=== PATIENT | male | born 1960 | race Caucasian/White ===

== ENCOUNTER 2017-01-17 21:27 | Observation (INO) ==
[2017-01-18] MEDS ORDERED: Naloxone 0.4 MG/ML INJ IVP PRN (02:16)
[2017-01-18] MEDS ORDERED: *HR* Enoxaparin 150 MG/ML SYRINGE SQ STA (02:20)
--- NOTE | 2017-01-18 02:23 | Internal Med History&Physical ---
Date of Encounter: 01/18/17 Time of Encounter: 01:30 Assessment and Plan (1) Unstable angina Current visit: Yes Status: Acute Treat with aspirin, nitroglycerin when necessary, enoxaparin. Trend troponins. Cardiology consultation, for further w/u. Check lipid panel (2) Chest pain Current visit: Yes Status: Acute Likely secondary to unstable angina/ACS. Treatment as above Qualifiers: Chest pain type: chest pain due to myocardial ischemia Ischemic chest pain type: unstable angina pectoris Qualified Code(s): I20.0 - Unstable angina (3) BRIAN (obstructive sleep apnea) Current visit: Yes Status: Chronic Uses BiPAP at home. Consider restarting (4) Diabetes mellitus Current visit: Yes Status: Acute Hold metformin. Start sliding scale insulin Qualifiers: Diabetes mellitus type: type 2 Diabetes mellitus complication status: without complication Diabetes mellitus senior living insulin use: without superintendent terminal use Qualified Code(s): E11.9 - Type 2 diabetes mellitus without complications (5) HTN (hypertension) Current visit: Yes Status: Acute Continue home medications Qualifiers: Hypertension type: essential hypertension Qualified Code(s): I10 - Essential (primary) hypertension Internal Medicine - H&P: HPI Chief complaint: Chest pain Admitted From: Emergency Dept Plans for Post Hospital Care: Home History of present illness: Mr. Zuniga is a 56 year old male with history of hypertension, hyperlipidemia, obstructive sleep apnea and uses home BiPAP, diabetes mellitus, GERD. He is transferred from the ER at the [facility], for evaluation of chest pain. Patient reports a few days history of exertional shortness of breath and lower sternal / chest tightness. He reports intermittent chest pain yesterday. [place] like chest pressure in the lower sternal area, moderate in intensity, and he also felt pain at the shoulder blade. He felt sick to his stomach and belching. He denies palpitations, sweating, vomiting. He denies abdominal pain, dysuria , hematuria, bowel problems. He was evaluated in the emergency department and was noted to have from negative troponin, d-dimer and chest x-ray. He was given nitroglycerin, which helped his chest pain. He was also given aspirin. He is admitted to the hospitalist service for further workup and management. Of note - patient has significant family history of CAD. His father apparently had the cardiac problems in his 40s. His maternal uncles have history of heart problems. Past Med Surg Social Fam HX - Past Medical History Medical history: arthritis, asthma, coronary artery disease, diabetes, GERD, hyperlipidemia, hypertension Psychiatric history: depression - Past Surgical History Surgical History: cholecystectomy - Social History Smoking Status: Never smoker Smokeless Tobacco Status: No Alcohol use: none Drug use: none - Family History Father Hx Family Cardiac Disorders: Yes ([place]) Internal Medicine - H&P: Meds Albuterol Sulfate [Ventolin Hfa] 18 gm IH DAILY PRN 10/29/15 [History] Amlodipine Besylate 10 mg PO DAILY 10/29/15 [History] Aspirin [Adult Low Dose Aspirin EC] 81 mg PO DAILY 10/29/15 [History] Atenolol 100 mg PO DAILY 10/29/15 [History] Budesonide/Formoterol 160/4.5 [Symbicort 160/4.5] 2 puff IH BIDR 10/29/15 [ History] Loratadine [Claritin] 10 mg PO DAILY 10/29/15 [History] Losartan Potassium [Cozaar] 100 mg PO DAILY 10/29/15 [History] [place]-3 Fatty Acids [Fish Oil] 600 mg PO DAILY 10/29/15 [History] Pravastatin Sodium [Pravachol] 40 mg PO DAILY 10/29/15 [History] Sertraline [Zoloft] 100 mg PO DAILY 10/29/15 [History] Spironolactone [Aldactone] 25 mg PO DAILY 10/29/15 [History] metFORMIN [Glucophage] 500 mg PO BIDWM 10/29/15 [History] Testosterone Cypionate [Depo-Testosterone] 200 mg IM Q2W 05/17/16 [History] Multivit-Min/Iron Fum/Folic AC [Uxafi-Nqkjrbh-Szxdbrjn Tablet] 1 tab PO DAILY [History] Allergies No Known Allergies Allergy (Verified 01/17/17 19:23) All Systems PM: A 10-system review of systems was performed and is negative for pertinent findings except as documented above in the HPI. - Constitutional Vitals: Temp Pulse Resp BP Pulse Ox 98.0 F 63 18 144/93 97 01/17/17 23:38 01/17/17 23:38 01/17/17 23:38 01/17/17 23:38 01/17/17 23:38 Exam: General: Not in acute distress at the time of my evaluation. Morbid obesity HEENT: Oral mucosa is moist. No conjunctival palor or scleral icterus Neck: No obvious neck swellings Lungs: Clear to auscultation Cardiac: Regular rate and rhythm. No significant murmurs Abdomen: Soft, non tender. Bowel sounds present Genitourinary: No sutton catheter Neurological: Alert and oriented. No gross localizing deficits Psych: Not aggressive or agitated Extremities: Minimal leg edema Skin: No generalized rash Internal Med - H&P Results - Labs CBC & Chem 7: 01/18/17 03:59 - EKG Data -: EKG Interpreted by Myself EKG shows normal: sinus rhythm - EKG Data EKG comments: Q wave in lead III 01/18/17 06:35
[2017-01-18 04:20] LABS: INR 1.2; Prothrombin Time 12.5 Seconds (9.4-12.1)
[2017-01-18 04:23] LABS: Activated Partial Thrombo Time 34.1 Seconds (26.0-36.0)
[2017-01-18 05:51] LABS: BUN/Creatinine Ratio 17 (6-26); Blood Urea Nitrogen 19 mg/dL (8-26); Calcium 9.2 mg/dL (8.6-10.8); Carbon Dioxide 25 mEq/L (19-29); Chloride 105 mEq/L (98-109); Glucose 109 mg/dL (70-99); Osmolality,Calculated 293 (280-300); Potassium 4.1 mEq/L (3.5-4.5); Sodium 140 mEq/L (136-145); eGFR For African Americans > 60 (> 60); eGFR For Non-African Americans > 60 (> 60)
[2017-01-18 06:21] LABS: Chol/HDL Ratio 5.2 (0-4.9); Magnesium 2.1 mg/dL (1.6-2.6)
[2017-01-18] MEDS ORDERED: Dextrose Gel 15 GM PO PRN ×2 (06:41)
[2017-01-18] MEDS ORDERED: *HR* Dextrose 50 % in Water (Syg) 50 ML SYRINGE IVP PRN (06:41)
[2017-01-18] MEDS ORDERED: D5% in Water 1,000 ML IVC PRN (06:41)
[2017-01-18] MEDS: Insulin LISPRO 300 UNITS/3 ML VIAL SQ SCH ×4 (07:56→21:23)
[2017-01-18] MEDS ORDERED: Ondansetron 4 MG/2 ML VIAL IVP PRN (08:11)
[2017-01-18] MEDS ORDERED: Nitroglycerin 0.4 MG TAB.SUBL SL PRN (08:11)
[2017-01-18] MEDS ORDERED: *HR* Morphine 2 MG/ML SYRINGE IVP PRN (08:14)
[2017-01-18] MEDS ORDERED: *HR* HYDROcodone/Acet 5/325 mg TABLET PO PRN (08:14)
[2017-01-18] MEDS ORDERED: Acetaminophen 325 MG TABLET PO PRN (08:14)
[2017-01-18] MEDS: Budesonide/Formoterol 160/4.5 MDI IH SCH ×2 (10:27→21:09)
[2017-01-18] MEDS ORDERED: Regadenoson 0.4 MG/5 ML SYRINGE IVP ONE (12:32)
[2017-01-18] MEDS ORDERED: Perflutren Lipid Microsphere 1.3 ML in 0.9 % Sodium Chloride 8.7 ML IVP ONE (14:19)
[2017-01-18] MEDS: Aspirin 325 MG TABLET PO SCH (14:59)
[2017-01-18] MEDS: amLODIPine 5 MG TABLET PO SCH (15:00)
--- NOTE | 2017-01-18 15:28 | ECHO - Doppler Report ---
Echo with Imaging Enhancement Agent Name: Zheng Zuniga Date of Study: 01/18/2017 Date: 1960 Ht: 72.0 in Medical Record#: [id number] Age: 56 Wt: 323.0 lb Gender: Male BSA: 2.61 Order #: [id number] Location: [facility] Room #: 3B46 Reading Physician: Unique Laureano DO Education Rn: Dulce Castellanos RVT Ordering Physician: Mia Horton CNP Primary Physician: Ronal Landon MD Indications: Chest pain Impressions: LVEF 65%. Normal left ventricular size and systolic function. There is evidence of mild diastolic dysfunction of the left ventricle. RV size and function are normal in visualized views. No significant valvular dysfunction. No pulmonary hypertension by TR gradient. IVC is not visualized to estimate RVSP. Aortic root and ascending aorta are suboptimally visualized, appearing mildly dilated. However, size may be normal for BSA. Consider dedicated imaging. Left Ventricular Wall Motion: Rest Echo Findings All wall segments showed normal motion. Findings: Study Quality * Technically sub-optimal due to body habitus. ECG Findings * Normal sinus rhythm. Left Ventricle * LVEF 65%. * Normal LV chamber size, wall thickness and function. * Mild left ventricular diastolic dysfunction. * Definity echo contrast was used. Aortic Valve * No aortic regurgitation. * No aortic stenosis. * Not well visualized. Mitral Valve * No mitral regurgitation. * Normal mitral valve structure. * No mitral stenosis. Tricuspid Valve * Tricuspid valve not well visualized. * Trace tricuspid regurgitation. Pulmonic Valve * Pulmonic valve is not well visualized. * No pulmonic stenosis. * No pulmonic regurgitation. Pulmonary Artery * Pulmonary artery not well visualized. Right Ventricle * Normal right ventricular structure and function in the apical views. Normal Lat S [place]. Not well seen in Parasternal or subcostal view. Left Atrium * Normal left atrial size. Right Atrium * Normal right atrial size. Interatrial Septum * Interatrial septum not well evaluated. IVC * The IVC is not well evaluated. Pericardium * There is no pericardial effusion present. Aorta * Aortic root and ascending are suboptimally visualized but appear mildly dilated. This may be normal for BSA. History Contrast: Definity 1.3 ml in 8.7 ml of saline 2 ml. Measurements: 2D Normal Values RVIDd: 2.60 cm <2.7 cm IVSd: 1.30 cm 0.6 - 1.0 cm LVIDd: 4.40 cm 3.7 - 5.6 cm LVPWd: 1.40 cm 0.6 - 1.1 cm LVIDs: 2.40 cm 1.5 - 3.6 cm AO: 3.20 cm < 4.0 cm LA: 3.40 cm 2.0 - 4.0cm %FS: 45.50 cm >25 % LA volume: 59 Mitral Valve Peak E:.64 m/sec Peak A:.40 m/sec E/A Ratio:1.6 Peak E' Lat Corby:10 cm/s Peak E' Med [place]:5.9 cm/s E/E' Lat Ratio:6.4 E/E' Med Ratio:10.7 Tricuspid Valve TV Regurg Peak Grad: 23.00mmHg TV Regurg Peak Cor[place]: 2.38m/sec Updated by Unique Laureano on 01/18/2017 3:23:39 PM electronically signed on 01/18/2017 3:24:57 PM with status of Final Wall Motion Morgan: 1=Normal, 2=Hypokinesis, 3=Akinesis, 4=Dyskinesis, 5=Aneurysmal, 6=Hyperkinetic, X=Not Visualized (Blank)=Missing
--- NOTE | 2017-01-18 18:02 | Event Note ---
Date of Encounter: 01/18/17 Time of Encounter: 17:15 Patient seen and examined. On examination, patient sitting upright in bed conversing with his and watching television. He states the chest pain he had earlier on in the day was relieved with nitroglycerin and he has not had pain since. He denies shortness of breath above his norm. Troponins negative 3. Chest x-ray negative. Hyperglycemia has improved. Echocardiogram unremarkable with ejection fraction of 65% and mild diastolic dysfunction. Patient euvolemic on examination. Awaiting second part of his stress test tomorrow morning. If abnormal, will reconsult cards. Chest x-ray impression from [place]: No evidence of acute airspace disease. Sequela of granulomatous disease Echocardiogram with imaging enhancement agent impressions: LVEF 65%. Normal left ventricular size and systolic function. There is evidence of mild diastolic dysfunction of the left ventricle. RV size and function are normal in visualized use. No significant valvular dysfunction. No pulmonary hypertension by TR gradient. IVC is not visualized to estimate RVSP. Aortic root and ascending aorta are suboptimally visualized, appearing mildly dilated. However, size may be normal for BSA. Consider dedicated imaging.
[2017-01-19] MEDS: Insulin LISPRO 300 UNITS/3 ML VIAL SQ SCH ×4 (07:37→23:07)
[2017-01-19] MEDS: Aspirin 325 MG TABLET PO SCH (08:24)
[2017-01-19] MEDS: amLODIPine 5 MG TABLET PO SCH (08:25)
--- NOTE | 2017-01-19 10:47 | Nuclear Medicine Stress Report ---
Regadenoson Nuclear 2 day Name: Zheng Zuniga Date of Study: 01/18/2017 Date: 1960 Ht: 72.0 in Medical Record#: [id number] Age: 56 Wt: 323.0 lb Gender: Male Order #: [id number] Location: [facility] Room: [facility] Supervising Provider: Michael Wilson CNP Reading Physician: Unique Laureano DO Ordering Physician: Michael Wilson CNP Primary Care Physician: Ronal Landon MD Stress Technologist: Joy Jackson RRT Improvement Engineer: Manish Lindquist Indications: Chest Pain Impression: Technically challenging 2-day study. Cannot rule out mild ischemia in the basal to distal inferior wall (see Findings below). Pharmacologic ECG was negative for ischemia at the level of heart rate achieved. Gated EF = 68%. Findings communicated to ordering provider. History: Hypertension Diabetes Hypercholesteremia Stress Test Summary: Stress Test Type: Pharmacologic Regadenoson 0.4mg/5ml given IV Baseline Information: Initial Heart Rate: 64 Blood Pressure: 156/86 Stress Information: Test Terminated Due to (primary): As per protocol Maximum Blood Pressure: 146/88 Maximum Heart Rate: 91 Percent Maximum Heart Rate Achieved: 56 METS Reached: 1 Symptoms: No chest symptoms Nuclear Summary: SPECT myocardial perfusion imaging using Tc99m Sestamibi given intravenously was performed at rest and following cardiac stress testing. The resting images were obtained following initial dose of 33 mCi. Following stress an additional dose of 35.1 mCi was given at peak exercise or 30 seconds post regadenoson infusion. Medication Given: Time Medication Dose Units Route Findings: Stress Note * Resting ECG demonstrated normal sinus rhythm with nonspecific ST abnormalities, leftward axis and poor R wave progression. * Pharmacologic stress ECG is negative for ischemia at level of heart rate achieved. * No arrhythmias were noted during stress. * Patient had no chest pain during stress. Hemodynamic responses * Normal hemodynamic responses to pharmacologic stress. Study Quality * Technically challenging 2-day study. Gated EF % * Gated EF = 68%. Left Ventricle * The left ventricle is not dilated. NORMALS * Normal wall motion. TID * No evidence of transient ischemic dilatation. Lung Uptake * There is no evidence of increase lung uptake. PERFUSION * There is a small sized, mild intensity perfusion defect during rest involving the basal inferior wall. * There is a small sized, mild intensity perfusion defect during stress involving the basal, mid and somewhat distal inferior wall. * Wall motion is normal. Findings do not suggest infarct. * Worsening of perfusion on stress images suggest the presence of ischemia. Updated by Unique Laureano on 01/19/2017 10:39:10 AM electronically signed on 01/19/2017 10:42:45 AM with status of Final
[2017-01-19] MEDS: Budesonide/Formoterol 160/4.5 MDI IH SCH ×2 (11:10→21:19)
--- NOTE | 2017-01-19 12:15 | Electrocardiograph Report ---
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
--- NOTE | 2017-01-19 14:35 | Cardiology Consult Note ---
Date of Encounter: 01/19/17 Time of Encounter: 14:33 Assessment and Plan (1) Abnormal stress test Current Visit: Yes Status: Acute Stress test reviewed with patient. Ischemia cannot be ruled out in the mid to basal to distal inferior wall. Troponin negative x3. EKG with no acute ST changes. Patient currently with chest pain. Multiple risk factors for CAD including HTN, DM type II, HLD, BRIAN and family history. Father with SD in his 40's. [facility] indications, benefits, risks, and alternatives discussed and he agrees to proceed. (2) Chest pain Current Visit: Yes Status: Acute Likely secondary to unstable angina/ACS. Treatment as above Qualifiers: Chest pain type: chest pain due to myocardial ischemia Ischemic chest pain type: unstable angina pectoris Qualified Code(s): I20.0 - Unstable angina Discussion w patient/family: The assessment and plan as outlined above was discussed with the patient and/or family members who expressed understanding and agreement. All questions were answered. Thank you for involving us in the care of your patient. Please call with any questions. History of Present Illness Consult date: 01/19/17 Requesting physician: Mia Horton Consult reason: Abnormal stress test Chief complaint: Chest pain History of present illness: Mr. Zuniga is a 56 year old male with a history of hypertension, hyperlipidemia , diabetes type 2, BRIAN on BiPAP who presents with left-sided chest pain. He complains of chest pain over the past 2 days it occurs at rest. He also complains of dyspnea on exertion over the last 2 weeks with minimal activity. Cardiology consulted for abnormal stress test. On my exam the patient complains of a dull ache in his left chest that is non-radiating. He denies previous history of CAD. He denies diaphoresis, nausea or vomiting. Denies palpitations, dizziness, or syncope. Denies weight gain or edema. Past Med Surg Social Fam HX - Past Medical History Medical history: arthritis, asthma, coronary artery disease, diabetes, GERD, hyperlipidemia, hypertension, other (BRIAN on bipap) Psychiatric history: depression - Past Surgical History Surgical History: cholecystectomy - Social History Smoking Status: Never smoker Smokeless Tobacco Status: No Alcohol use: none Drug use: none - Family History Father Hx Family Cardiac Disorders: Yes ([place]) Medications and Allergies Albuterol Sulfate [Ventolin Hfa] 18 gm IH DAILY PRN 10/29/15 [History] Amlodipine Besylate 10 mg PO DAILY 10/29/15 [History] Aspirin [Adult Low Dose Aspirin EC] 81 mg PO DAILY 10/29/15 [History] Atenolol 100 mg PO DAILY 10/29/15 [History] Budesonide/Formoterol 160/4.5 [Symbicort 160/4.5] 2 puff IH BIDR 10/29/15 [ History] Loratadine [Claritin] 10 mg PO DAILY PRN 10/29/15 [History] Losartan Potassium [Cozaar] 100 mg PO DAILY 10/29/15 [History] [place]-3 Fatty Acids [Fish Oil] 600 mg PO DAILY 10/29/15 [History] Pravastatin Sodium [Pravachol] 40 mg PO DAILY 10/29/15 [History] Sertraline [Zoloft] 100 mg PO DAILY 10/29/15 [History] Spironolactone [Aldactone] 25 mg PO DAILY 10/29/15 [History] metFORMIN [Glucophage] 500 mg PO BIDWM 10/29/15 [History] Testosterone Cypionate [Depo-Testosterone] 200 mg IM Q2W 05/17/16 [History] Allergies No Known Allergies Allergy (Verified 01/18/17 08:20) All Systems Review: A 10-system review of systems was performed and is negative for pertinent findings except as documented above in the HPI. Physical Examination Vital Signs, Last 4 Hours Temp Pulse Resp BP Pulse Ox 01/19/17 11:10 18 96 01/19/17 11:06 97.7 F 61 16 107/68 96 General: Conversant, No Apparent Distress HEENT: Atraumatic, Normocephaly, Mucus Membranes Moist Neck: No JVD, Normal carotid pulses Cardiac: Reg Rate and Rhythm, Normal S1 and S2, No Murmur Lungs: Normal Breath Sounds, No Wheeze, Rales, Rhonchi Neuro: Alert and responsive, No focal deficits noted Abdomen: Soft, Non-Tender Skin: No rashes noted on visualized skin Musculoskeletal: No Chest Wall Tenderness Extremities: No Clubbing, No Cyanosis, No Edema, Normal Pulses Results 01/18/17 03:59 - Imaging and Cardiology Stress Test: report reviewed Echo: report reviewed - EKG Interpretation EKG results cardiology: personally reviewed (NSR with poor R wave progression.) Consult Discharge Plan - Plan Referrals: Ronal Landon MD [Primary Care Provider] - 01/24/17 5:30 pm
--- NOTE | 2017-01-19 15:29 | Internal Med Progress Note ---
Date of Encounter: 01/19/17 Time of Encounter: 14:00 - Assessment and plan (1) Chest pain Current Visit: Yes Status: Acute Assessment and plan: Patient with continued chest pain and a slightly abnormal stress test. Troponins negative 3. Chest x-ray negative. He denies shortness of breath above his norm. Echocardiogram unremarkable with ejection fraction of 65% and mild diastolic dysfunction. Patient euvolemic on examination. Cardiology was called and have decided to proceed with a left heart catheter today. Patient and with many questions regarding heart catheter in the procedure. Wheezing currently endorsing chest pain and states it is slightly better than yesterday, awaiting heart catheter. Chest x-ray impression from [place]: No evidence of acute airspace disease. Sequela of granulomatous disease Echocardiogram with imaging enhancement agent impressions: LVEF 65%. Normal left ventricular size and systolic function. There is evidence of mild diastolic dysfunction of the left ventricle. RV size and function are normal in visualized use. No significant valvular dysfunction. No pulmonary hypertension by TR gradient. IVC is not visualized to estimate RVSP. Aortic root and ascending aorta are suboptimally visualized, appearing mildly dilated. However, size may be normal for BSA. Consider dedicated imaging. Regadenosen nuclear 2 day stress test impression: Technically challenging 2 day study. Cannot rule out mild ischemia in the basal to distal inferior wall. Pharmacologic ECG was negative for ischemia at the level of heart rate achieved. Gated ejection fraction equals 68%. Qualifiers: Chest pain type: chest pain due to myocardial ischemia Ischemic chest pain type: unstable angina pectoris Qualified Code(s): I20.0 - Unstable angina (2) Abnormal stress test Current Visit: Yes Status: Acute Assessment and plan: Left heart catheter today (3) Unstable angina Current Visit: Yes Status: Suspected (4) HTN (hypertension) Current Visit: Yes Status: Chronic Assessment and plan: Controlled. At home, patient is on atenolol 100 mg daily, spironolactone 25 mg daily, amlodipine 10 mg daily, losartan 100 mg daily. While admitted, his atenolol and amlodipine have been continued and his blood pressure is controlled , will continue to trend. Qualifiers: Hypertension type: essential hypertension Qualified Code(s): I10 - Essential (primary) hypertension (5) BRIAN (obstructive sleep apnea) Current Visit: Yes Status: Chronic Assessment and plan: Endorses compliance with BiPAP (6) Diabetes mellitus Current Visit: Yes Status: Chronic Assessment and plan: Controlled at home with a recent A1c of 5.7%. Continue sliding scale while admitted. 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 On examination, patient saying that his chest pain has returned and states it is slightly more severe than yesterday. He also endorses being hungry but understands we cannot eat until seen by cardiology. His is at the bedside and has many questions. - Constitutional Vitals: Temp Pulse Resp BP Pulse Ox 97.7 F 61 18 114/71 96 01/19/17 15:12 01/19/17 15:12 01/19/17 15:12 01/19/17 15:12 01/19/17 15:12 General appearance: Present: A&O X 3, morbidly obese, pleasant, no acute distress, answers questions appropriately - Head Head exam: Present: atraumatic, normocephalic - Eye Eye exam: Present: PERRL, conjuntiva pink, sclera anicteric Pupils: Present: PERRL - Neck Neck exam general surgery: Present: supple, trachea midline. Absent: lymphadenopathy - Respiratory Respiratory exam: Present: CTAB. Absent: accessory muscle use, rales, respiratory distress, rhonchi, wheezes - Cardiovascular Cardiovascular exam: Present: RRR, +S1, +S2. Absent: diastolic murmur, gallop, rubs, systolic murmur - GI/Abdominal GI/Abdominal exam: Present: normal bowel sounds, soft, no peritoneal signs. Absent: distended, tenderness - Extremities Exam Extremities exam: Present: warm, radial pulses palpable and symetrical. Absent : calf tenderness, cyanotic, pedal edema - Neurological Exam Neurological exam: Present: alert, CN II-XII intact, oriented X3, no focal deficits, strengths equal and symetr throughout. Absent: pronater drift, facial droop, speech deficit - Skin Skin exam: Present: diaphoretic, intact, normal color, warm Internal Medicine: Result - Labs CBC & Chem 7: 01/18/17 03:59 - ABG Interpretation ABG results: PT/INR, D-dimer PT 12.5 Seconds (9.4-12.1) H 01/18/17 03:59 Consult Discharge Plan - Plan Referrals: Ronal Landon MD [Primary Care Provider] - 01/24/17 5:30 pm
[2017-01-19] MEDS ORDERED: 0.9 % Sodium Chloride 1,000 ML ONE ×2 (15:32→16:05)
[2017-01-19] MEDS ORDERED: Heparin 1,000 UNITS/500 mL NS 500 ML ONE ×2 (15:32→17:21)
[2017-01-19] MEDS ORDERED: *HR* Heparin 10,000 UNIT/10 ML VIAL ONE (15:33)
[2017-01-19] MEDS ORDERED: *HR* Midazolam HCl 2 MG/2 ML VIAL ONE ×2 (15:45→16:36)
[2017-01-19] MEDS ORDERED: *HR* FentaNYL (PF) 100 MCG/2 ML VIAL ONE (15:45)
[2017-01-19] MEDS ORDERED: Nitroglycerin 1,000 MCG/10 ML VIAL IV ONE (15:46)
--- NOTE | 2017-01-19 15:50 | Pre-Sedation Evaluation ---
Pre-sedation evaluation - Pre-sedation checklist Date of procedure: 01/19/17 Procedure: [facility] Recent Vitals: Last Vital Signs Temp 97.7 F 01/19/17 15:12 Pulse 61 01/19/17 15:12 Resp 18 01/19/17 15:12 BP 114/71 01/19/17 15:12 Pulse Ox 96 01/19/17 15:12 H&P (including ROS) documented in medical record: Yes Previous reaction to sedatives/anesthetics: No Dietary Status: NPO after Midnight Airway Assessment: Patient can open mouth completely, TMJ function normal, Micrognathia (under-bite, receding chin) absent, Neck with adequate range of motion Dentition: No loose teeth or bridges Possible difficult airway: Yes If Yes;: History of Obstructive Sleep Apnea, Morbid obesity ASA Classification *see protocol: CLASS II-Mild systemic disease Plan of Care: Pt appropriate candidate for procedure/moderate/conscious sedation , Risks/benefits of procedure/sedation discussed w/ patient/family
[2017-01-19] MEDS ORDERED: *HR* Bivalirudin 250 MG VIAL IVC ONE ×3 (16:28→17:31)
[2017-01-19] MEDS ORDERED: *HR* Ticagrelor 90 MG TABLET ONE (17:09)
--- NOTE | 2017-01-19 17:54 | Invasive Diagnostic Lab Proc ---
Name: Zheng Zuniga Date of Study: 01/19/2017 Date: 1960 Ht: 72.0in Medical Record#: [id number] Age: 56 Wt: 317.47lb Gender: Male BSA: 2.59 Order #: [id number] BMI: 43 Physicians Procedure Physician: Dolores Jeter MD, [facility] Referring MD: Ronal Landon MD Referring MD: Staff Name Position Time In Ju Tsang RN Monitor 04:09 PM Igor Raza RN [employer] Worker 04:10 PM Sites, Sherry RT (R) Scrub 04:10 PM Sherry Suarez RT (R) 04:11 PM Javon Santiago RN 04:11 PM Indications Indication Abnormal Test - Stress Procedures Performed Procedure L HRT ARTERY/VENTRICLE ANGIO PRQ CARDIAC ANGIOPLAST 1 ART PRQ CARD DESTINI STENT W/ANGIO 1 VSL Pre-Procedure Checklist Informed consent is complete signed and on chart. H\\T\\P is on chart. ID band is on and ID verified with patient. Patient NPO for procedure The procedure was described for the patient and questions were answered. Blood Pressure: 107/68 ECG is on chart. Rhythm: NSR Plan of Care Patient will tolerate the procedure without complications. Adequate level of comfort will be maintained. Hemodynamics will remain stable Patient will recover from procedure without complications. Respiratory function will be maintained. Cardiac rhythm will remain stable. Patient temperature will be maintained. Patient and/or family have verbalized understanding of the procedure. Patient Education Chief Complaint/Reason for Test: Cardiac Cath Developmental Category: Adult (18-64 years) Developmentally Appropriate for Age: Yes Learning Barriers: None Education Needs: Procedure Education Method: Verbal Information Taught: Cardiac Cath Educational Evaluation: Able to repeat information Intravenous Access Time IV Size Location DC'd Fluid/Drip Rate Units RN 03:55 PM 18g 1 /" Patent On Arrival Rt Antecubital 0.9NaCl 25 ml/hr Igor Raza RN Allergies No Known Allergies Vital Signs Time BP (mmHg) HR (bpm) O2 Sat. RR (bpm) LOC 03:53 PM 107 / 68 61 96 % 18 5 = Fully awake and oriented or at pre-proc level 04:14 PM / % 5 = Fully awake and oriented or at pre-proc level 04:14 PM / % 4 = Oriented but drowsy 04:29 PM / % 4 = Oriented but drowsy 04:45 PM / % 4 = Oriented but drowsy 04:10 PM 150 / 88 61 99 % 0 04:15 PM 125 / 76 59 97 % 19 04:20 PM 131 / 72 58 97 % 18 04:25 PM 132 / 63 66 96 % 26 04:30 PM 130 / 70 67 96 % 23 04:35 PM 121 / 67 63 97 % 21 04:40 PM 120 / 68 64 95 % 21 04:45 PM 122 / 61 64 96 % 21 04:50 PM 126 / 73 66 97 % 15 04:55 PM 118 / 61 62 96 % 17 05:00 PM 128 / 66 61 95 % 21 05:05 PM 121 / 69 61 95 % 22 05:10 PM 121 / 68 64 95 % 29 05:15 PM 124 / 72 65 93 % 05:20 PM 108 / 61 70 96 % 18 05:25 PM 106 / 61 65 95 % 20 05:30 PM 119 / 53 67 93 % 24 Procedural Medications Time Medication Dose Units Method Given By 04:13 PM Oxygen 2 L/min nasal cannula Igor Raza RN 04:14 PM Versed 2 mg Intravenous Igor Raza RN 04:14 PM Fentanyl 50 mcg Intravenous Igor Raza RN 04:20 PM Lidocaine 2% 17 ml Subcutaneous Dolores Jeter MD, FACC 04:33 PM Angiomax 0.75mg/kg bolus: 22 ml Intravenous Igor Raza RN 04:33 PM Angiomax 1.75mg/kg/hr: 51 ml/hr Intravenous Igor Raza RN 04:38 PM Versed 1 mg Intravenous Igor Raza RN 04:38 PM Fentanyl 25 mcg Intravenous Igor Raza RN 04:59 PM Benadryl 25 mg Intravenous Igor Raza RN 05:08 PM Versed 1 mg Intravenous Igor Raza RN 05:08 PM Fentanyl 25 mcg Intravenous Igor Raza RN 05:18 PM Nitroglycerin 200 mcg Intracoronary Dolores Jeter MD, FACC 05:26 PM Nitroglycerin 200 mcg Intracoronary Dolores Jeter MD, FACC 05:27 PM Brilinta 180 mg Orally Igor Raza RN ASA Classification: CLASS II- Mild systemic disease (i.e. well-controlled diabetes, hypertension, asthma, cigarette smoking) Marcia Score Preprocedure Postprocedure Activity 2- Moves 4 extremities sustained head lift Activity 2- Moves 4 extremities sustained head lift Circulation 2- SBP +/= 20 points of pre-anesthetic level Circulation 2- SBP +/= 20 points of pre-anesthetic level Consciousness 2- Awake and alert oriented x 3 Consciousness 2- Awake and alert oriented x 3 O2 Saturation 2- Able to maintain O2 satruation of 92% on room air O2 Saturation 2- Able to maintain O2 satruation of 92% on room air Respiratory 2- Able to deep breathe and cough well Respiratory 2- Able to deep breathe and cough well Total Score 10 Total Score 10 Contrast Agent: Isovue Diagnostic Contrast: 258 ml Total Contrast: 258 ml Fluoro Dose: 4156 mGy Procedure Log Time Note Enter By 03:45 PM CathStat 04:09 PM Vitals capture started with the following parameters, Patient=Adult, Interval=5 min, Initial Oyditlzj=672 mmHg, Deflation Rate=5 mmHg, Cuff placed on Right Arm 04:09 PM 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 Bilateral groin prepped with Chloraprep by Sherry Suarez (R), safety strap applied then patient was draped. Skin intact. csmith 04:11 PM Sherry Suarez (R) Position: Time in: 16:11 csmith 04:11 PM Javon Santiago RN Position: Time in: 16:11 csmith 04:12 PM Physician arrived 16:12 csmith 04:12 PM ASA Class CLASS II- Mild systemic disease (i.e. well-controlled diabetes, hypertension, asthma, cigarette smoking) csmith 04:12 PM Meet and greet completed csmith 04:12 PM Sign in performed according to hospital policy. csmith 04:12 PM Procedure start 16:12 csmith 04:13 PM Recorded ECG: HR=59 Condition=Condition 1 04:14 PM Time: 16:13 Oxygen on at 2 L/min per nasal cannula [facility] 04:14 PM Time: 16:14 Versed 2 mg Intravenous Given by Igor Raza RN [facility] 04:14 PM Time: 16:14 Fentanyl 50 mcg Intravenous Given by Igor Raza RN [facility] 04:14 PM Time: 16:14 Patient comfortable and pain free: Yes csmith 04:14 PM Time: 16:14LOC: 5 = Fully awake and oriented or at pre-proc level csmith 04:15 PM HR=59 bpm, NOGG=562/76 mmhg, SpO2=97.0 %, Resp=19 B/min, Comment=NSR 04:18 PM Clinical Presentation: Unstable angina csmith 04:18 PM Time out performed according to hospital policy csmith 04:19 PM Pressure channel 1 zeroed. 04:20 PM HR=58 bpm, YWVM=151/72 mmhg, SpO2=97.0 %, Resp=18 B/min, Comment=NSR 04:20 PM Time: 16:20 17 ml Lidocaine 2% to right groin Subcutaneous Given by Dolores Jeter MD, [facility] csmith 04:20 PM Access obtained by percutaneous puncture. 5Fr 10cm Terumo [place] sheath placed in right Femoral artery. [id number] csmith 04:21 PM 5Fr FL 4 catheter inserted over the wire DN csmith 04:21 PM LCA angiography performed in multiple views. csmith 04:22 PM Recorded Pressure: Ao, HR=59, Condition=Condition 1 (Aorta) Ao 139/93/115 04:24 PM Recorded Pressure: Ao, HR=63, Condition=Condition 1 (Aorta) Ao 136/93/113 04:24 PM Catheter removed csmith 04:24 PM 5Fr FR [facility] PM RCA angiography performed in multiple views. csmith 04:25 PM HR=66 bpm, NDQK=114/63 mmhg, SpO2=96.0 %, Resp=26 B/min, Comment=NSR 04:27 PM Catheter removed csmith 04:27 PM 5Fr Pigtail [facility] 04[facility]27 PM Catheter selectively placed in left ventricle csmith 04:27 PM Bolus angiogram of left Ventricle complete: 8 ml/sec for a total of 24 mls csmith 04:28 PM Pressure channel 1 zero failed. 04:28 PM Pressure channel 1 zeroed. 04:28 PM Recorded Pressure: LV, HR=66, Condition=Condition 1 (Left Ventricle) LV 119/10/10 04:29 PM Recorded Pressure: LV, Ao, HR=71, Condition=Condition 1 (Left Ventricle) LV 132/36/28, (Aorta) Ao 129/88/109 04:29 PM Catheter removed csmith 04:29 PM Time: 16:14LOC: 4 = Oriented but drowsy csmith 04:29 PM Time: 16:14 Patient comfortable and pain free: Yes csmith 04:30 PM HR=67 bpm, WNSU=716/70 mmhg, SpO2=96.0 %, Resp=23 B/min, Comment=NSR 04:32 PM Coronary Dominance: right csmith 04:32 PM Lesion found in Proximal RCA. Pre Stenosis: 99 Pre CHE Flow: 3: Complete and Brisk Flow/Perfusion csmith 04:32 PM PCI Status Urgent csmith 04:33 PM Sheath exchanged for a 6 Fr 11 cm Cordis Pavithra sheath [id number] csmith 04:33 PM Time: 16:33 Angiomax 0.75mg/kg bolus: 22 ml Intravenous Given by Igor Raza RN [place] pump csmith 04:34 PM Time: 16:33 Angiomax 1.75mg/kg/hr: 51 ml/hr Intravenous Given by Igor Raza RN [place] pump csmith 04:34 PM 6Fr IM Runway guide catheter was used to cannulate the PCI vessel successfully. reused? No csmith 04:35 PM HR=63 bpm, MKGS=437/67 mmhg, SpO2=97.0 %, Resp=21 B/min, Comment=NSR 04:35 PM .014 Prowater 180cm guide wire across target lesion- successful. reused? No csmith 04:35 PM Recorded Pressure: Ao, HR=65, Condition=Condition 1 (Aorta) Ao 120/68/92 04:36 PM Inflation device was opened. csmith 04:38 PM 52.5 mm x 15 mm Emerge Monorail balloon across target lesion- successful. reused? No csmith 04:38 PM Time: 16:38 Versed 1 mg Intravenous Given by Igor Raza RN csmith 04:38 PM Time: 16:38 Fentanyl 25 mcg Intravenous Given by Igor Raza RN csmith 04:40 PM HR=64 bpm, LSSZ=513/68 mmhg, SpO2=95.0 %, Resp=21 B/min, Comment=NSR 04:42 PM Balloon removed would not cross csmith 04:43 PM 2.0 mm x 12 mm Mini Trek Rx balloon across target lesion- successful. reused? No csmith 04:45 PM HR=64 bpm, VBJE=009/61 mmhg, SpO2=96.0 %, Resp=21 B/min, Comment=NSR 04:45 PM Time: 16:29 Patient comfortable and pain free: Yes csmith 04:45 PM Time: 16:29LOC: 4 = Oriented but drowsy csmith 04:47 PM Balloon inflated @ 10 [place] for 20 seconds csmith 04:47 PM Balloon inflated @ 14 [place] for 20 seconds csmith 04:47 PM Recorded Pressure: Ao, HR=65, Condition=Condition 1 (Aorta) Ao 125/87/106 04:48 PM Balloon inflated @ 14 [place] for 20 seconds csmith 04:49 PM Balloon inflated @ 14 [place] for 20 seconds csmith 04:49 PM Balloon inflated @ 14 [place] for 15 seconds csmith 04:50 PM HR=66 bpm, IDQR=276/73 mmhg, SpO2=97.0 %, Resp=15 B/min, Comment=NSR 04:50 PM Balloon catheter removed intact. csmith 04:51 PM 2.5 x 15 balloon reinserted csmith 04:53 PM Balloon catheter removed intact. csmith 04:53 PM 6Fr Guidezilla advanced csmith 04:54 PM 2.5 x 15 balloon reinserted csmith 04:55 PM HR=62 bpm, CFVW=649/61 mmhg, SpO2=96.0 %, Resp=17 B/min, Comment=NSR 04:59 PM Time: 16:59 Benadryl 25 mg Intravenous Given by Igor Raza RN csmith 05:00 PM HR=61 bpm, FXSA=069/66 mmhg, SpO2=95.0 %, Resp=21 B/min, Comment=NSR 05:00 PM Time: 16:45LOC: 4 = Oriented but drowsy csmith 05:00 PM Time: 16:45 Patient comfortable and pain free: Yes csmith 05:02 PM Balloon catheter removed intact. csmith 05:02 PM 2.5 mm x 12 mm Emerge Monorail balloon across target lesion- successful. reused? No csmith 05:04 PM Recorded Pressure: Ao, HR=64, Condition=Condition 1 (Aorta) Ao 127/84/104 05:05 PM HR=61 bpm, AAFU=438/69 mmhg, SpO2=95.0 %, Resp=22 B/min, Comment=NSR 05:05 PM unable to cross csmith 05:06 PM Balloon catheter removed intact. csmith 05:06 PM Guide catheter removed intact. csmith 05:06 PM Guide wire removed intact. csmith 05:07 PM 6Fr XB LAD 3.5 [place] Bright-Tip guide catheter was used to cannulate the PCI vessel successfully. reused? No csmith 05:08 PM Time: 17:08 Versed 1 mg Intravenous Given by Igor Raza RN csmith 05:08 PM Time: 17:08 Fentanyl 25 mcg Intravenous Given by Igor Rzaa RN csmith 05:08 PM .014 Prowater 180cm guide wire across target lesion- successful. reused? No csmith 05:10 PM HR=64 bpm, TZNH=360/68 mmhg, SpO2=95.0 %, Resp=29 B/min, Comment=NSR 05:10 PM 2.5 x 15 balloon reinserted csmith 05:11 PM Recorded Pressure: Ao, HR=64, Condition=Condition 1 (Aorta) Ao 134/87/108 05:12 PM PCI lesion in Proximal LAD. Pre Stenosis: 90 Pre CHE Flow: 3: Complete and Brisk Flow/Perfusion csmith 05:12 PM Balloon inflated @ 8 [place] for 20 seconds csmith 05:13 PM Balloon inflated @ 8 [place] for 20 seconds csmith 05:15 PM HR=65 bpm, DFRQ=865/72 mmhg, SpO2=93.0 %, Comment=NSR 05:15 PM Balloon catheter removed intact. csmith 05:15 PM 2.75mm x 24mm Synergy drug-eluting stent across target lesion- successful Lot #[id number] csmith 05:16 PM Stent deployed @ 12 [place] for 30 seconds csmith 05:17 PM Stent balloon reinflated @ 14 [place] for 10 seconds csmith 05:18 PM Time: 17:18 Nitroglycerin 200 mcg Intracoronary Given by Dolores Jeter MD, FACC csmith 05:20 PM HR=70 bpm, DWFT=891/61 mmhg, SpO2=96.0 %, Resp=18 B/min, Comment=NSR 05:21 PM Stent delivery system removed intact. csmith 05:21 PM 3.0 mm x 12mm NC Emerge balloon across target lesion- successful. reused? No csmith 05:23 PM Balloon inflated @ 20 [place] for 22 seconds csmith 05:25 PM HR=65 bpm, KQQZ=690/61 mmhg, SpO2=95.0 %, Resp=20 B/min, Comment=NSR 05:25 PM Balloon inflated @ 20 [place] for 15 seconds csmith 05:26 PM Recorded Pressure: Ao, HR=65, Condition=Condition 1 (Aorta) Ao 117/77/95 05:26 PM Time: 17:26 Nitroglycerin 200 mcg Intracoronary Given by Dolores Jeter MD, FAC csmith 05:27 PM Time: 17:27 Brilinta 180 mg Orally Given by Igor Raza RN csmith 05:28 PM Bolus angiogram of right Femoral complete: 4 ml/sec for a total of 7 mls csmith 05:30 PM HR=67 bpm, JSTY=349/53 mmhg, SpO2=93.0 %, Resp=24 B/min, Comment=NSR 05:33 PM Procedure completed at 17:33 csmith 05:34 PM Sign out completed: Radiation Dose 4156 mGy Fluoro Time: 24.4 Isovue 370 - 200ml contrast 250 ml given by Dolores Jeter MD, [facility]. Complications: NoneCardiac Rehab Consult needed: YesConfirmed administered medications: Yes csmith 05:34 PM Isovue 370 - 500ml,1 Bottle(s) used. csmith 05:35 PM Sheath left in place to be pulled on floor/holding area csmith 05:35 PM Post ECG NSR csmith 05:36 PM Post Blood Pressure 119/53 csmith 05:36 PM 17:36 Post Pulses Bilateral DP 1+ csmith 05:36 PM Information taught Cardiac Cath and PCI csmith 05:36 PM Education needs Responsibilities of Patient in Care csmith 05:36 PM Learning barriers :None csmith 05:36 PM Education Methods Verbal csmith 05:36 PM Education evaluation Able to repeat information csmith 05:36 PM Site status No bleeding/hematoma - Rt Groin as reported by Sites, Sherry RT (R) at 17:36 csmith 05:36 PM Opsite applied csmith 05:36 PM Plavix, Effient or Brilinta given Yes csmith 05:37 PM Family placed in consult room. csmith 05:43 PM Lesion found in Mid RCA. Pre Stenosis: 99 Pre CHE Flow: 3: Complete and Brisk Flow/Perfusion csmith 05:43 PM Lesion found in Distal RCA. Pre Stenosis: 80 Pre CHE Flow: 3: Complete and Brisk Flow/Perfusion csmith 05:43 PM Lesion found in LMCA. Pre Stenosis: 20 Pre CHE Flow: 3: Complete and Brisk Flow/Perfusion csmith 05:43 PM Lesion found in Proximal Circumflex. Pre Stenosis: 20 Pre CHE Flow: 3: Complete and Brisk Flow/Perfusion csmith 05:43 PM Lesion found in Ramus. Pre Stenosis: 40 Pre CHE Flow: 3: Complete and Brisk Flow/Perfusion csmith Complications Complication None Hemodynamics Pressures Site Systolic/A Wave Diastolic/V Wave Mean AO 139 93 115 AO 136 93 113 LV 119 10 10 LV 132 36 28 AO 129 88 109 AO 120 68 92 AO 125 87 106 AO 127 84 104 AO 134 87 108 AO 117 77 95 Post Procedure Information Blood Pressure: 119/53 mmHg Rhythm: NSR Post procedural instructions were given Closure Device Time Device Success/Fail Mechanical Compression Site Checks Time Location Status Staff Sheath In? Note 05:36 PM Rt Groin No bleeding/hematoma Sites, Sherry RT (R) Pulses Time Site Pre-Procedure Post-Procedure Note 01/19/2017 3:54:00 PM Bilateral DP \\T\\ PT 2+ 01/19/2017 3:54:00 PM Bilateral radial 2+ 5:36:00 PM Bilateral DP 1+ Updated by Igor Raza RN on 01/19/2017 5:48:13 PM electronically signed on 01/19/2017 5:49:13 PM with status of Final
[2017-01-19] MEDS ORDERED: Nitroglycerin 0.4 MG TAB.SUBL SL PRN (18:03)
--- NOTE | 2017-01-19 18:04 | Invasive Diagnostic Lab ---
Name: Zheng Zuniga Date of Study: 01/19/2017 Date: 1960 Ht: 183.0 cm /72.0 in Medical Record#: [id number] Age: 56 Wt: 144. kg / 317.47 lb Account/Order#: [id number] Gender: Male BSA: 2.59 Order #: [id number] Fluoro Dose: 4156 mGy BMI: 43 Procedure Physician: Dolores Jeter MD, [facility] Referring MD: Ronal Landon MD Referring MD: Procedures Performed: LEFT HEART CATH PTCA Single Major Vessel Stent w/ PTCA Single Major Vessel Indications: Abnormal Test - Stress Impressions: Double vessel coronary artery disease. The left ventricle is normal and has normal contractility EF 60% Patient had successful PTCA/Drug-Eluting Stent placement in the proximal LAD. Patient had PTCA of the proximal RCA. Recommendations: DAPT Staged PCI of RCA. Optimal medical therapy of patient's disease. Aggressive risk factor modification. History/Risk Factors: BRIAN (uses Bipap) DM Hyperlipidemia HPTN DM Unstable angina Choleycystectomy Procedure Access obtained in the right Femoral artery by percutaneous puncture Patient had successful PTCA/Drug-Eluting Stent placement in the proximal LAD. Patient had DIAMOND SIZER AND SORTER of the proximal RCA. Complications: None Contrast: Isovue 258ml Closure Device: Manual Compression Hemodynamics: Pressures Site Systolic/ A Wave Diastolic/ V Wave End Diastolic/ Mean HR AO 139 93 115 59 AO 136 93 113 63 LV 119 10 10 66 LV 132 36 28 80 AO 129 88 109 66 AO 120 68 92 65 AO 125 87 106 65 AO 127 84 104 64 AO 134 87 108 64 AO 117 77 95 65 LV Ventriculography Ejection Method: LV Gram Ejection Fraction: 60% Wall Motion: [place] Anterobasal Normal Anterolateral Normal Apical: Normal Inferoapical Normal Inferobasal Normal Coronary Dominance: right Lesion Findings/Interventions * Left Main Coronary Artery There is a 20% stenosis in the LMCA. The lesion has a CHE flow of 3. * Left Anterior Descending There is a 21 mm long, 90% stenosis in the Proximal LAD. The lesion has a CHE flow of 3. An intervention was performed on the Proximal LAD with a final stenosis of 0%. There were no lesion complications. The final CHE flow was 3. * Circumflex There is a 20% stenosis in the Proximal Circumflex. * Ramus There is a 40% stenosis in the Ramus. The lesion has a CHE flow of 3. * Right Coronary Artery There is a 14 mm long, 99% stenosis in the Proximal RCA. The lesion has a CHE flow of 3 and has no thrombus present. This lesion is further described as tortuous. An intervention was performed on the Proximal RCA with a final stenosis of 90%. There were no lesion complications. The final CHE flow was 3. There is a 99% stenosis in the Mid RCA. The lesion has a CHE flow of 3. There is a 80% stenosis in the Distal RCA. The lesion has a CHE flow of 3. Unable to pass multiple balloons down RCA due to significant tortuosity. Interventional Device(s) Vessel Segment Type Name Diameter (mm) Length (mm) Proximal RCA balloon Mini Trek Rx 2 12 Proximal RCA balloon Emerge Monorail 2.5 12 Proximal LAD balloon Emerge Monorail 2.5 15 Proximal LAD drug-eluting stent Synergy 2.75 24 Proximal LAD balloon NC Emerge 3 12 Updated by Igor Raza RN on 01/19/2017 5:47:55 PM Dolores Jeter MD, FAC electronically signed on 01/19/2017 6:01:14 PM with status of Final
[2017-01-19] MEDS ORDERED: 0.9 % Sodium Chloride 1,000 ML IVC SCH (18:15)
[2017-01-19] MEDS ORDERED: *HR* Atropine Sulfate 1 MG/10 ML SYRINGE ONE (23:47)
[2017-01-20 04:13] LABS: Basophils % 0.3 %; Eosinophils # 0.1 K/mcL (0.0-0.6); Eosinophils % 0.7 %; Hematocrit 44.4 % (37.5-50.1); Hemoglobin 14.6 g/dL (12.9-16.9); Immature Granulocytes % 0.6 % (0-4); Lymphocytes # 1.9 K/mcL (0.6-4.6); Lymphocytes % 21.9 %; Mean Corpuscular HGB Conc 32.9 g/dL (31.6-35.5); Mean Corpuscular Hemoglobin 29.6 pg (28.0-33.3); Mean Corpuscular Volume 90.1 fL (83.0-100.0); Mean Platelet Volume 10.1 fL (9.4-12.4); Monocytes # 0.8 K/mcL (0.0-1.3); Monocytes % 8.5 %; Platelet Count 182 K/mcL (140-400); Red Blood Count 4.93 M/mcL (4.19-5.50); Red Cell Distribution Width 13.5 % (11.5-14.5)
[2017-01-20 04:30] LABS: BUN/Creatinine Ratio 15 (6-26); Blood Urea Nitrogen 17 mg/dL (8-26); Calcium 8.9 mg/dL (8.6-10.8); Carbon Dioxide 23 mEq/L (19-29); Chloride 107 mEq/L (98-109); Glucose 132 mg/dL (70-99); Osmolality,Calculated 293 (280-300); Potassium 4.3 mEq/L (3.5-4.5); Sodium 140 mEq/L (136-145); eGFR For African Americans > 60 (> 60); eGFR For Non-African Americans > 60 (> 60)
[2017-01-20 07:43] VITALS: BP 135/96
[2017-01-20] MEDS: Insulin LISPRO 300 UNITS/3 ML VIAL SQ SCH (07:43)
[2017-01-20] MEDS: amLODIPine 5 MG TABLET PO SCH (07:44)
[2017-01-20] MEDS: Budesonide/Formoterol 160/4.5 MDI IH SCH (08:17)
[2017-01-20] MEDS ORDERED: Isosorbide MONOnitrate (24 HR) 30 MG TAB.ER.24H PO SCH (09:00)
[2017-01-20] MEDS ORDERED: Aspirin 81 MG TAB.CHEW PO SCH (09:00)
--- NOTE | 2017-01-20 09:24 | Cardiology Progress Note ---
Date of Encounter: 01/20/17 Time of Encounter: 09:23 Assessment and Plan (1) Abnormal stress test Current Visit: Yes Status: Acute Stress test reviewed with patient. Ischemia cannot be ruled out in the mid to basal to distal inferior wall. Troponin negative x3. EKG with no acute ST changes. [facility] 01/19/17- 20% stenosis LMCA, 90% stenosis in the pLAD and PTCA and drug- eluting stent placed with good results. 20% stenosis pCX, 40% stenosis ramus, 99 % stenosis. RCA, 99% stenosis in the RCA, 80% stenosis in the RCA. The RCA was found to be tortuous and a balloon was unable to be passed in that area He did receive a PTCA of the proximal RCA with a final stenosis of 90%. He is recommended for staged high risk PCI. I discussed with Dr. Dolores Jeter, outpatient referral to [facility] for PCI of the RCA is recommended. Patient denies recurrent chest pain overnight. There was no complication with his right groin access site. He agrees with outpatient follow-up with [facility]. Follow-up will be coordinated by [facility]. Importance of DAPT with aspirin and Plavix for minimum of 1 year uninterrupted reviewed with patient and he voiced understanding. Continue aspirin, statin, beta christopher, and Imdur. NTG SL use, indication, side effects, and benefits reviewed. Patient voiced understanding. (2) CAD (coronary artery disease) Current Visit: Yes Status: Acute See plan above. Qualifiers: Qualified Code(s): I25.10 - Atherosclerotic heart disease of [place] coronary artery without angina pectoris Discussion w patient/family: The assessment and plan as outlined above was discussed with the patient and/or family members who expressed understanding and agreement. All questions were answered. Thank you for involving us in the care of your patient. Please call with any questions. Subjective Principal diagnosis: Abnormal stress test, unstable angina Interval history: Mr. Zuniga is status post PCI to the RCA and LAD. He is recommended for high risk staged PCI in the outpatient setting. He denies recurrent chest pain overnight. He has been ambulating in his room and in the hallway. Objective Vital Signs, Last 4 Hours Temp Pulse Resp BP Pulse Ox 01/20/17 08:17 18 97 01/20/17 07:50 59 01/20/17 07:38 98.0 F 58 18 135/96 96 General: Conversant, No Apparent Distress HEENT: Atraumatic, Normocephaly, Mucus Membranes Moist Neck: No JVD, Normal carotid pulses Cardiac: Reg Rate and Rhythm, Normal S1 and S2, No Murmur Lungs: Normal Breath Sounds, No Wheeze, Rales, Rhonchi Neuro: Alert and responsive, No focal deficits noted Abdomen: Soft, Non-Tender Skin: No rashes noted on visualized skin Musculoskeletal: No Chest Wall Tenderness Extremities: No Clubbing, No Cyanosis, No Edema, Normal Pulses, Other (Right groin dressing removed. Mild ecchymosis. No hematoma, redness, or drainage.) Results 01/20/17 03:34 01/20/17 03:34 Lab Results 01/20/17 01/20/17 03:34 03:34 WBC 8.8 Hgb 14.6 Hct 44.4 Plt Count 182 Sodium 140 Potassium 4.3 Chloride 107 Carbon Dioxide 23 BUN 17 Creatinine 1.16 Glucose 132 H Calcium 8.9 - Imaging and Cardiology Stress Test: report reviewed Echo: report reviewed Cardiac cath: report reviewed - EKG Interpretation EKG results cardiology: other (NSR with HR in the 60's. Average heart rate was 59 bpm normal sinus bradycardia. Minimum heart rate was 47 bpm during nocturnal hours. No VT or pauses seen.) Consult Discharge Plan - Plan Referrals: Ronal Landon MD [Primary Care Provider] - 01/24/17 5:30 pm
--- NOTE | 2017-01-20 09:38 | Discharge Summary ---
Date of Encounter: 01/20/17 Time of Encounter: 09:00 - Discharge Diagnosis (1) Unstable angina Priority: Primary Status: Suspected (2) HTN (hypertension) Priority: Secondary Status: Chronic Qualifiers: Hypertension type: essential hypertension Qualified Code(s): I10 - Essential (primary) hypertension (3) Diabetes mellitus Priority: Secondary Status: Chronic Qualifiers: Diabetes mellitus type: type 2 Diabetes mellitus complication status: without complication Diabetes mellitus tire assembler insulin use: without tire assembler use Qualified Code(s): E11.9 - Type 2 diabetes mellitus without complications (4) CAD (coronary artery disease) Priority: Secondary Status: Chronic Qualifiers: Coronary Disease-Associated Artery/Lesion type: [place] artery [place] vs. transplanted heart: [place] heart Associated angina: without angina Qualified Code(s): I25.10 - Atherosclerotic heart disease of [place] coronary artery without angina pectoris (5) Morbid obesity with BMI of 40.0-44.9, adult Priority: Secondary Status: Chronic (6) BRIAN (obstructive sleep apnea) Priority: Primary Status: Chronic - Discharge Medications Prescriptions: Nitroglycerin 0.4 mg SL Q5MIN PRN #10 tab.subl PRN Reason: Chest Pain Atorvastatin [Lipitor] 80 mg PO HS #60 tablet Clopidogrel [Plavix] 75 mg PO DAILY #30 tablet Isosorbide MONOnitrate (24 HR) [Imdur] 30 mg PO DAILY #30 tab.er.24h Lisinopril [Zestril] 2.5 mg PO DAILY #60 tablet Home Medications: Albuterol Sulfate [Ventolin Hfa] 18 gm IH DAILY PRN 10/29/15 [History] Amlodipine Besylate 10 mg PO DAILY 10/29/15 [History] Aspirin [Adult Low Dose Aspirin EC] 81 mg PO DAILY 10/29/15 [History] Atenolol 100 mg PO DAILY 10/29/15 [History] Budesonide/Formoterol 160/4.5 [Symbicort 160/4.5] 2 puff IH BIDR 10/29/15 [ History] Loratadine [Claritin] 10 mg PO DAILY PRN 10/29/15 [History] [place]-3 Fatty Acids [Fish Oil] 600 mg PO DAILY 10/29/15 [History] Sertraline [Zoloft] 100 mg PO DAILY 10/29/15 [History] metFORMIN [Glucophage] 500 mg PO BIDWM 10/29/15 [History] Testosterone Cypionate [Depo-Testosterone] 200 mg IM Q2W 05/17/16 [History] Atorvastatin [Lipitor] 80 mg PO HS #60 tablet 01/20/17 [Rx] Clopidogrel [Plavix] 75 mg PO DAILY #30 tablet 01/20/17 [Rx] Isosorbide MONOnitrate (24 HR) [Imdur] 30 mg PO DAILY #30 tab.er.24h 01/20/17 [ Rx] Lisinopril [Zestril] 2.5 mg PO DAILY #60 tablet 01/20/17 [Rx] Nitroglycerin 0.4 mg SL Q5MIN PRN #10 tab.subl 01/20/17 [Rx] Allergies/Adverse Reactions: Allergies No Known Allergies Allergy (Verified 01/18/17 08:20) Procedures/tests Complete & Pending: Procedures Performed prior 72 hours Category Date Time Status CL Cardiac Catheterization [CL] Routine Wet Machine Cutter 01/19/17 14:52 Completed NM isaura perf SPECT multi [NM] Routine Exams 01/18/17 12:44 Taken ECG 12 lead ECG [ECG] Routine Y 01/18/17 08:22 Completed ECG 12 lead ECG [ECG] Stat Y 01/19/17 18:02 Ordered EV echocardiogram w enhance Routine Y 01/18/17 08:23 Completed SP pharm nuclear stress Routine Y 01/18/17 08:23 Completed Date of admission: 01/17/17 23:10 Primary care physician: Ronal Landon MD Consults: 01/19/17 11:05 Consult to Cardiology [CONS] Routine Comment: Consulting Provider: Cardiology Barbara Reason for Consult: possibly abnl stress. still npo just in case. Time Notified: 11:05 Call Completed: Yes 01/19/17 18:04 Consult to Cardiac Rehabilitation-Phase1 [CONS] Routine Comment: Reason for Consult: CAD S/P PCI Call Completed: Yes - Patient Status Disposition: Home, Self-Care Condition: Good Functional capacity at discharge: independent ambulation Overall status at discharge: patient is progressing back to baseline - Discharge Instructions Instructions: Lisinopril (By mouth), Isosorbide Mononitrate (By mouth), Atorvastatin (By mouth), Clopidogrel (By mouth), Chest Pain (DC), Meal Planning with Diabetes Exchanges (DC) Follow Up With: Ronal Landon MD [Primary Care Provider] - 01/24/17 5:30 pm Forms: Work/School Release Additional Instructions: RISK FACTORS: STOP SMOKING: If you smoke, STOP. Smoking or tobacco use significantly increases your risk of heart disease because nicotine causes the arteries to narrow or constrict. It also causes fats to stick to the artery. Your chances of having a heart attack are greatly increased if you continue to smoke. For more information, call the education line for smoking cessation 8-639-IDUKUHP EAT A LOW FAT/CHOLESTEROL/SODIUM DIET: This diet may help reduce your chances of having a heart attack. LIFTING: Avoid lifting anything more than 10 pounds for 5-7 days Prior to straining, laughing, sneezing and/or coughing, apply manual pressure directly over insertion site. ACTIVITY: You may walk or climb stairs as tolerated You can resume sexual activity as tolerated In general, you are encouraged to engage in a minimum of 30 minutes or more of moderate intensity physical activity, such as brisk walking, daily or at least 3 -4 times weekly BATHING Do not submerge the site into water (bath tub, hot tub, swimming pool) for 1 week. This can be a source for infection into the blood stream. You may shower after 24 hours SITE CARE: After 24 hours, you may remove the dressing and leave the site open to air. Keep the site clean and dry. Clean gently and pat dry. You can expect bruising and tenderness that gradually resolve within a week or two. Return to work as instructed per your physician Resume driving as instructed per physician Keep all scheduled follow up appointments Resume medications as instructed IMPORTANT: If prescribed a Platelet Aggregation Inhibitor such as, Plavix, Brilinta or Effient: Duration of therapy is minimum one year These medications are often used in combination with Aspirin in prevention of future heart attacks Never discontinue unless consult with your Paper Roll Machine Operator STROKE (CVA) Risk factors for a stroke are: Age, cigarette smoking, diabetes, excessive alcohol consumption, family history, high blood pressure, overweight, physical inactivity, prior stroke, heart attack, diagnosis of carotid artery stenosis or other artery disease. Warning signs: Sudden numbness or weakness of the face, arm or leg; especially on one side of the body, sudden confusion, trouble speaking or understanding, sudden trouble seeing in one or both eyes, sudden trouble walking, dizziness, loss of balance or coordination, sudden severe headache with no cause. Call 911 or go to the Emergency Room. CONGESTIVE HEART FAILURE: If you have been diagnosed with Congestive Heart Failure (CHF) and your symptoms return, make an appointment with your physician Weigh yourself daily. Notify your physician if you have a weight gain of two or more pounds in one day or five or more pounds in one week. If you experience any difficulty breathing, please call 911 BLEEDING: Although the risk of bleeding is minimal, it can happen. If you have any bleeding from the site, apply firm pressure above the puncture site for 10-15 minutes. If the bleeding does not stop, continue manual pressure and call 911 Contact your physician if: You develop a fever greater than 101 degrees Fahrenheit Your site becomes reddened or has any drainage You have an increase in pain or burning at the site or if a large knot forms at the site. If you experience chest pain, shortness of breath, dizziness, or extreme tiredness, stop the activity and rest. Please notify your physicians office if you experience any of these symptoms and they are not relieved by rest please call 911! please take all medications as prescribed. follow a strict diabetic, low salt diet. monitor your sugars at home before meals and at bedtime, write down numbers and bring record to doctor's appointment. follow up with your primary care doctor for diabetes, start a weight loss program. [facility] cardiology clinic will call you within 1 week. - Diet and Activity Activity: other (pls provide acute heart attack instructions) Diet: diabetic diet, low fat, low cholesterol, low salt diet Interval History: patient has no complains. no chest pain. no shortness of breath. Hospital course: Mr. Zuniga is a 56 year old male with past medical history of CAD, diabetes, hypertension, morbid obesity, and BRIAN on BiPAP who presented with a chief complaint of chest pain. Patient underwent stress test that was slightly abnormal. Troponins negative 3. Chest x-ray was unremarkable. Echocardiogram revealed the LVEF 65% and mild systolic dysfunction. Given persistent of chest pain, patient underwent left heart catheterization with PCI drug-eluting stent to proximal LAD. In addition, there was 99% stenosis in the RCA s/p PTCA of the proximal RCA with a final stenosis of 90%. He is recommended for staged high risk PCI and will follow-up at [facility]. PLAN: Patient will follow-up at [facility] within 1 week for PCI of the RCA. - Time Spent with Patient Total time spent providing and/or coordinating discharge services: - Constitutional Vitals: Temp Pulse Resp BP Pulse Ox 98.0 F 59 18 135/96 97 01/20/17 07:38 01/20/17 07:50 01/20/17 08:17 01/20/17 07:38 01/20/17 08:17 General appearance: Present: cooperative, A&O X 3, morbidly obese, pleasant, no acute distress, answers questions appropriately - Neck Neck exam general surgery: Present: supple, trachea midline. Absent: lymphadenopathy - Respiratory Respiratory exam: Present: CTAB - Cardiovascular Cardiovascular exam: Present: RRR - GI/Abdominal GI/Abdominal exam: Present: normal bowel sounds, soft. Absent: distended, tenderness - Extremities Exam Extremities exam: Absent: pedal edema - Back Exam Back exam: Absent: CVA tenderness (L), CVA tenderness (R) - Neurological Exam Neurological exam: Present: alert, oriented X3, no focal deficits, strengths equal and symetr throughout. Absent: facial droop, speech deficit
--- NOTE | 2017-01-21 19:57 | Electrocardiograph Report ---
[address] [place] [address] Test Date: 2017-01-19 Pat Name: Zheng Zuniga Department: 110 Room: 2N07 Gender: M Bilingual Nanny: LUBA : 1960 Requested By: Dolores Jeter Order Number: [id number] Reading MD: Corey Araiza MD Measurements Intervals [place] Rate: 60 P: 45 WI: 184 QRS: 4 QRSD: 91 T: 48 QT: 421 QTc: 421 Interpretive Statements SINUS RHYTHM INFERIOR MYOCARDIAL INFARCTION, PROBABLY OLD Electronically Signed On 01-21-2017 19:55:44 EDT by Corey Araiza MD
== END 2017-01-20 11:11 | disposition home or self-care (01) ==
LOC: 3BNU → SUATTDRO 23:10 → 2NNU 01-19 18:21
PROVIDERS: ADMIT Internal Medicine; ATTEND Internal Medicine

== ENCOUNTER 2018-06-13 18:51 | Observation (INO) ==
[2018-06-13] MEDS ORDERED: Nitroglycerin 0.4 MG TAB.SUBL SL PRN ×2 (21:23→22:52)
[2018-06-13] MEDS ORDERED: *HR* Nalbuphine 10 MG/ML AMPUL IM ONE (21:23)
[2018-06-13] MEDS ORDERED: Budesonide/Formoterol 160/4.5 1 PUFF INH IH PRN (22:52)
--- NOTE | 2018-06-13 23:00 | Internal Med History&Physical ---
Date of Encounter: 06/13/18 Time of Encounter: 22:58 Internal Medicine - H&P: HPI Chief complaint: chest pain Admitted From: Home Plans for Post Hospital Care: Home History of present illness: Zheng Zuniga is a 57-year-old obese man with a history of hypertension, hyperlipidemia, diabetes and coronary artery disease who underwent staged PCI in January 2017 with 1 stent placed in the LAD here and 2 stents in the RCA at [facility] and is currently on dual antiplatelet therapy. He presents on transfer from [place] [facility] where he presented to with complaints of left-sided chest pain and shoulder pain the commenced while he was performing physical activity on his car. Immediately he got up from the floor he felt lightheaded and the chest pain started with radiation to his left neck and shoulder accompanied by mild dyspnea. He was unable to continue his physical activities and felt extremely exhausted. He decided to take a nitroglycerin 2 hours later at 5 PM due to persistence of the pain and he noticed modest improvement with that. At the time of arrival to the ER he rated his pain a 1/10. He tells me that he has never taking nitroglycerin since January 2017 when he had the PCI done. He does report checking his blood pressure often at home and is typically 140/180 but at the time of the chest pain he was about 160/100. He was seen clinically and hemodynamically stable. Lab work done was grossly unremarkable with a negative troponin at 1700 hrs. He reports a strong family history of heart disease with CAD in his father. A 10-system review of systems was performed and is negative for pertinent findings except as documented above in the HPI. Past Med Surg Social Fam HX - Past Medical History Medical history: arthritis, asthma, coronary artery disease, diabetes, GERD, hyperlipidemia, hypertension, other Additional medical history: sleep apnea Psychiatric history: depression - Past Surgical History Surgical History: cholecystectomy Additional surgical history: stents x3 - Social History Smoking Status: Never smoker Smokeless Tobacco Status: No Alcohol use: none Drug use: none - Family History Father Hx Family Cardiac Disorders: Yes Internal Medicine - H&P: Meds Albuterol Sulfate [Ventolin Hfa] 18 gm IH DAILY PRN 10/29/15 [History] Amlodipine Besylate 10 mg PO DAILY 10/29/15 [History] Aspirin [Adult Low Dose Aspirin EC] 81 mg PO DAILY 10/29/15 [History] Atenolol 100 mg PO DAILY 10/29/15 [History] Budesonide/Formoterol 160/4.5 [Symbicort 160/4.5] 2 puff IH BIDR PRN 10/29/15 [ History] Loratadine [Claritin] 10 mg PO PRN PRN 10/29/15 [History] [place]-3 Fatty Acids [Fish Oil] 600 mg PO DAILY 10/29/15 [History] Sertraline [Zoloft] 100 mg PO DAILY 10/29/15 [History] metFORMIN [Glucophage] 500 mg PO BIDWM 10/29/15 [History] Atorvastatin [Lipitor] 80 mg PO HS #60 tablet 01/20/17 [Rx] Clopidogrel [Plavix] 75 mg PO DAILY #30 tablet 01/20/17 [Rx] Lisinopril [Zestril] 2.5 mg PO DAILY #60 tablet 01/20/17 [Rx] Nitroglycerin 0.4 mg SL Q5MIN PRN #10 tab.subl 01/20/17 [Rx] 3 Allergy/AdvReac Type Severity Reaction Status Date / Time No Known Allergies Allergy Verified 01/18/17 08:20 All Systems PM: A 10-system review of systems was performed and is negative for pertinent findings except as documented above in the HPI. - Constitutional Vitals: Temp Pulse Resp BP Pulse Ox 978.4 F H 59 17 131/80 94 06/13/18 21:16 06/13/18 21:16 06/13/18 21:16 06/13/18 21:16 06/13/18 21:16 Exam: Vitals: Reviewed and seen to be within normal limits. General: morbidly obese white male sitting comfortably in bed in no acute distress. Skin: warm and supple. HEENT: Moist mucous membranes. No conjunctivae pallor. Neck: No lymphadenopathy. No JVD. No carotid bruits. No palpable thyroid. Chest: Normal thoracic expansion. Normal breath sounds. Clear to auscultation. Heart: Normal S1 & S2; rhythmic. No rubs or murmurs. Abdomen: Distended abdomen but soft and nontender. Extremities: No clubbing, cyanosis or edema. No calf tenderness. Normal distal pulses. Neurological: Awake, alert and oriented to person, place and time. No focal deficits. Psych: Affect appropriate. - Assessment and plan (1) Unstable angina pectoris Current Visit: No Status: Acute Assessment and plan: The patient is at moderate to high risk of ACS and warrants admission for observation. Admitting for unstable angina. We will obtain a repeat EKG and maintain cardiac telemetry. Repeat troponins. Keep nothing by mouth past midnight as he may benefit from a repeat stress test and cardiology evaluation. Resume dual antiplatelet therapy, nitrate and antihypertensives (2) CAD (coronary artery disease) Current Visit: Yes Status: Chronic Assessment and plan: Continue DAPT, nitrates. Qualifiers: Coronary Disease-Associated Artery/Lesion type: [place] artery [place] vs. transplanted heart: [place] heart Associated angina: with unstable angina Qualified Code(s): I25.110 - Atherosclerotic heart disease of [place] coronary artery with unstable angina pectoris (3) Diabetes mellitus Current Visit: Yes Status: Chronic Assessment and plan: . Insulin sliding scale for now. Qualifiers: Diabetes mellitus type: type 2 Diabetes mellitus intermediate insulin use: without terminal superintendent use Diabetes mellitus complication status: with unspecified complications Qualified Code(s): E11.8 - Type 2 diabetes mellitus with unspecified complications (4) HTN (hypertension) Current Visit: Yes Status: Chronic Assessment and plan: Will resume home oral antihypertensives. Qualifiers: Hypertension type: essential hypertension Qualified Code(s): I10 - Essential (primary) hypertension (5) Morbid obesity with BMI of 40.0-44.9, adult Current Visit: Yes Status: Chronic Assessment and plan: Will benefit from nutrition consultation. (6) BRIAN (obstructive sleep apnea) Current Visit: Yes Status: Chronic Assessment and plan: Will place on NIPPV qhs. (7) DVT prophylaxis Current Visit: Yes Status: Acute Assessment and plan: Heparin subq. - Time Spent With Patient Total time spent is greater than 50% in coordination of care (as documented) at patient's floor/unit and/or counseling patient: Greater than 35 minutes
[2018-06-13] MEDS ORDERED: Dextrose Gel 15 GM/37.5 ML TUBE PO PRN ×2 (23:03)
[2018-06-13] MEDS ORDERED: Albuterol 2.5 MG/3 ML NEBULIZER IH PRN (23:07)
[2018-06-14] MEDS: Insulin LISPRO 300 UNITS/3 ML VIAL SQ SCH ×4 (00:52→18:24)
[2018-06-14] MEDS ORDERED: Regadenoson 0.4 MG/5 ML SYRINGE IVP ONE (05:30)
[2018-06-14] MEDS: *HR* Heparin 5,000 UNIT/ML VIAL SQ SCH ×3 (05:59→19:46)
--- NOTE | 2018-06-14 06:16 | Event Note ---
Date of Encounter: 06/14/18 Time of Encounter: 06:13 The patient was seen on follow up this morning. He no longer complains of chest pain. Says his pain is now located in the posterior aspect of his left shoulder and is reproducible, a pain he has had in the past and is associated with physical use. Palpation of the muscle in that area elicits pain. Will give an oral analgesic for now. Troponins thus far negative. Telemetry showing NSR. Will proceed with stress testing this morning.
[2018-06-14] MEDS ORDERED: Loratadine 10 MG TABLET PO PRN (09:00)
[2018-06-14] MEDS: Aspirin Enteric Coated 81 MG Tablet PO SCH (09:46)
[2018-06-14] MEDS: amLODIPine 5 MG TABLET PO SCH (09:46)
[2018-06-14] MEDS: FISH OIL PO SCH (09:58)
--- NOTE | 2018-06-14 11:14 | Internal Med Progress Note ---
Hospitalist Progress Note - Encounter Date of Encounter: 06/14/18 Time of Encounter: 10:12 - Subjective Interval History: Patient seen and examined this mornig. Currently chest pain free. Just had 1st part of Stress test finished. Denies sob, abdomional pain or other complains. - Exam Vitals: Temp Pulse Resp BP Pulse Ox 97.7 F 54 20 144/85 94 06/14/18 11:04 06/14/18 11:04 06/14/18 11:04 06/14/18 11:04 06/14/18 11:04 Exam: General: In no acute distress. Conversant. Morbidly Obese. Respiratory exam: CTAB. no accessory muscle use, rales, rhonchi, wheezes Cardiovascular exam: RRR, +S1, +S2. no murmur, gallop, rubs. GI/Abdominal exam: Non-tender, Non-distended, normal bowel sounds, soft, no peritoneal signs. Extremities exam: full ROM, Trace pedal edema, warm, pulses palpable in b/l lower extremities. no calf tenderness Neurological exam: CN II-XII intact, AO X3, no focal deficits. no pronater drift , facial droop, speech deficit Skin exam: No skin rash, ulcer, purpura or ecchymosis. - Assessment and Plan (1) HTN (hypertension) Current Visit: Yes Status: Chronic (2) BRIAN (obstructive sleep apnea) Current Visit: Yes Status: Chronic (3) Diabetes mellitus Current Visit: Yes Status: Chronic (4) Morbid obesity with BMI of 40.0-44.9, adult Current Visit: Yes Status: Chronic (5) CAD (coronary artery disease) Current Visit: Yes Status: Chronic (6) Unstable angina pectoris Current Visit: No Status: Inactive (7) DVT prophylaxis Current Visit: Yes Status: Acute - Summary of Assessment and Plan Summary of Assessment and Plan: Lightheadedness and Atypical chest pain - significant h/o CAD with 3 stent placed last year January 2017 - EKG reviewed without ischemic changes. Trop Negative x2. - Had 1st part of stress test this morning. To be finished tomorrow. Will consider cardiology evaluation based on the results. - c/w Resume DAPT, prn nitrate and antihypertensives CAD - Continue DAPT, nitrates. Diabetes mellitus - Insulin sliding scale and accuchecks. HTN - c/w home norvasc, atenolol and lisinopril. BRIAN - Will place on NIPPV qhs. DVT - Heparin subq. 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 transplanted heart: [place] heart Associated angina: with unstable angina Qualified Code(s): I25.110 - Atherosclerotic heart disease of [place] coronary artery with unstable angina pectoris
[2018-06-15] MEDS: Insulin LISPRO 300 UNITS/3 ML VIAL SQ SCH ×3 (00:52→11:34)
[2018-06-15] MEDS: *HR* Heparin 5,000 UNIT/ML VIAL SQ SCH (06:17)
[2018-06-15] MEDS: Aspirin Enteric Coated 81 MG Tablet PO SCH (08:54)
[2018-06-15] MEDS: FISH OIL PO SCH (08:54)
[2018-06-15] MEDS: amLODIPine 5 MG TABLET PO SCH (08:54)
--- NOTE | 2018-06-15 09:48 | Electrocardiograph Report ---
[place] [address] Test Date: 2018-06-13 Pat Name: Zheng Zuniga Department: 115 Room: 3B Gender: M It Recruiter: GERDA : 1960 Requested By: Raudel Lyn Order Number: [id number] Reading MD: Unique Laureano Measurements Intervals [place] Rate: 60 P: 26 TN: 192 QRS: -12 QRSD: 102 T: 30 QT: 411 QTc: 411 Interpretive Statements SINUS RHYTHM NONSPECIFIC T-WAVE ABNORMALITY Electronically Signed On 06-15-2018 9:46:34 EDT by Unique Laureano
[2018-06-15 11:27] VITALS: BP 127/74
--- NOTE | 2018-06-15 13:13 | Discharge Summary ---
- NOTES TO OUTPATIENT PROVIDER Notes to Outpatient Provider: Patient was hospitalized with chest pain and lightheadedness that improved with nitroglycerin. His blood pressure was elevated when he first went to the ER. He was evaluated for ACS. Troponins were negative. He then underwent cardiac stress test which was negative for any reversible ischemia. Currently patient is chest pain-free. He does have postural/orthostatic hypotension. Likely from antihypertensive use. We will decrease his atenolol to 50 mg by mouth daily and losartan to 50 mg daily. Patient is also advised to wear compression stockings. He can follow up with his primary care provider for further management. Orders not resulted at time of discharge: Pending orders 06/13/18 23:05 NM isaura perf SPECT multi [NM] Routine Date of Encounter: 06/15/18 Time of Encounter: 13:12 - Discharge Diagnosis (1) Chest pain Priority: Primary Status: Acute Qualifiers: Chest pain type: other chest pain Qualified Code(s): R07.89 - Other chest pain; R07.8 - Other chest pain (2) Postural hypotension Priority: Secondary Status: Acute (3) HTN (hypertension) Priority: Secondary Status: Chronic Qualifiers: Hypertension type: essential hypertension Qualified Code(s): I10 - Essential (primary) hypertension (4) BRIAN (obstructive sleep apnea) Priority: Secondary Status: Chronic (5) Diabetes mellitus Priority: Secondary Status: Chronic Qualifiers: Diabetes mellitus type: type 2 Diabetes mellitus conveyor man insulin use: without conveyor man use Diabetes mellitus complication status: with unspecified complications Qualified Code(s): E11.8 - Type 2 diabetes mellitus with unspecified complications (6) Morbid obesity with BMI of 40.0-44.9, adult Priority: Secondary Status: Chronic (7) CAD (coronary artery disease) Priority: Secondary Status: Chronic Qualifiers: Coronary Disease-Associated Artery/Lesion type: [place] artery [place] vs. transplanted heart: [place] heart Associated angina: with unstable angina Qualified Code(s): I25.110 - Atherosclerotic heart disease of [place] coronary artery with unstable angina pectoris (8) Unstable angina pectoris Priority: Secondary Status: Ruled-out (9) DVT prophylaxis Priority: Secondary Status: Acute Hospital course: Mr. Zuniga is a 57 year old male patient with history of diabetes, coronary artery disease, hypertension, hyperlipidemia who was hospitalized with chest pain and lightheadedness that improved with nitroglycerin. His blood pressure was elevated when he first went to the ER. He was evaluated for ACS. Troponins were negative. He then underwent cardiac stress test which was negative for any reversible ischemia. Currently patient is chest pain-free. He does have postural/orthostatic hypotension. Likely from antihypertensive use. We will decrease his atenolol to 50 mg by mouth daily and losartan to 50 mg daily. Patient is also advised to wear compression stockings. He can follow up with his primary care provider for further management. Discharge discussed with: patient, family, nurse - Time Spent with Patient Total time spent providing and/or coordinating discharge services: Greater than 30 minutes (35 min) - Discharge Medications Prescriptions: Atenolol [Tenormin] 50 mg PO DAILY #30 tablet Losartan Potassium [Cozaar] 50 mg PO DAILY #30 tab Home Medications: Albuterol Sulfate [Ventolin Hfa] 18 gm IH DAILY PRN 10/29/15 [History] Amlodipine Besylate 10 mg PO DAILY 10/29/15 [History] Aspirin [Adult Low Dose Aspirin EC] 81 mg PO DAILY 10/29/15 [History] Budesonide/Formoterol 160/4.5 [Symbicort 160/4.5] 2 puff IH BIDR PRN 10/29/15 [ History] Loratadine [Claritin] 10 mg PO PRN PRN 10/29/15 [History] [place]-3 Fatty Acids [Fish Oil] 600 mg PO DAILY 10/29/15 [History] Sertraline [Zoloft] 100 mg PO DAILY 10/29/15 [History] Atorvastatin [Lipitor] 80 mg PO HS #60 tablet 01/20/17 [Rx] Clopidogrel [Plavix] 75 mg PO DAILY #30 tablet 01/20/17 [Rx] Nitroglycerin 0.4 mg SL Q5MIN PRN #10 tab.subl 01/20/17 [Rx] Metformin HCl 1,000 mg PO BID 06/14/18 [History] Multivitamin with Minerals [One-A-Day Maximum Formula] 1 tab PO DAILY 06/14/18 [ History] Atenolol [Tenormin] 50 mg PO DAILY #30 tablet 06/15/18 [Rx] Losartan Potassium [Cozaar] 50 mg PO DAILY #30 tab 06/15/18 [Rx] Allergies/Adverse Reactions: 3 Allergy/AdvReac Type Severity Reaction Status Date / Time No Known Allergies Allergy Verified 01/18/17 08:20 Date of admission: 06/13/18 20:41 Primary care physician: Ronal Landon MD Discharging clinician: Vladimir Saab Anticipated date of discharge: 06/15/18 - Constitutional Vitals: Temp Pulse Resp BP Pulse Ox 98.3 F 58 17 127/74 96 06/15/18 11:26 06/15/18 11:26 06/15/18 11:26 06/15/18 11:26 06/15/18 11:26 General appearance: Present: cooperative, A&O X 3, morbidly obese, answers questions appropriately Exam: . - Respiratory Respiratory exam: Present: CTAB. Absent: accessory muscle use, rales, rhonchi, wheezes - Cardiovascular Cardiovascular exam: Present: RRR, +S1, +S2. Absent: diastolic murmur, gallop, rubs, systolic murmur - GI/Abdominal GI/Abdominal exam: Present: normal bowel sounds, soft, no peritoneal signs. Absent: distended, tenderness - Patient Status Disposition: Home, Self-Care Condition: Good Functional capacity at discharge: independent ambulation Overall status at discharge: patient is progressing back to baseline - Discharge Instructions Instructions: Chest Pain (DC) Follow Up With: Ronal Landon MD [Primary Care Provider] - 06/21/18 9:30 am Additional Instructions: Follow-up appointments: If there is not an appointment listed below, please call your physician and schedule a follow-up appointment. If you have congestive heart failure and your symptoms return, make an appointment with your physician. Medication List: Carry an up to date list of medications you are taking at all time. We have given you an updated medication list including any new medications that you have been prescribed. Please provide that list to your primary provider Symptoms: If your condition changes or you experience any of the following symptoms, notify your physician immediately: Unusual or worsening pain, fever, persistent nausea and vomiting, bleeding, increase in swelling (especially in your legs), sudden weight gain, extreme dizziness, chest pain, increased drainage or redness from a wound or incision. Go to the emergency department if you experience a problem with breathing. Weights: If you have a history of swelling or shortness of breath, weigh yourself daily and notify your physician if you have a weight gain of two or more pounds in one day or 5 or more pounds in a week. If you experience any of the warning signs for stroke: Sudden numbness or weakness of the face, arm or leg; especially on one side of the body, sudden confusion, trouble speaking or understanding, sudden trouble seeing in one or both eyes, sudden trouble walking, dizziness, loss of balance or coordination, sudden sever headache with no cause; Call 911 or go to the emergency room. Stroke is a medical emergency. Some risk factors for stroke: Age, cigarette smoking, diabetes, excessive alcohol consumption, family history , high blood pressure, overweight, physical inactivity, prior stroke, heart attack, diagnosis of carotid artery stenosis or other artery disease. If you smoke, STOP: Smoking or tobacco use significantly increases your risk of heart and lung disease. Your chance of disease greatly increases if you continue to smoke. For more information, call the [place] tobacco quit line for smoking cessation QUIT-NOW ( ) - Diet and Activity Activity: increase activity as tolerated, return to work once cleared by your PCP/specialist (in 2-3 days) Diet: low fat, low cholesterol, low salt diet
== END 2018-06-15 13:42 | disposition home or self-care (01) ==
LOC: 3BNU → SUATTDRO 20:41
PROVIDERS: ADMIT Internal Medicine; ATTEND Internal Medicine

== ENCOUNTER 2018-06-21 10:37 | Inpatient (IN) ==
[2018-06-21] MEDS ORDERED: Nitroglycerin 0.4 MG TAB.SUBL SL PRN ×2 (11:02→12:35)
[2018-06-21 11:08] LABS: Basophils % 0.4 %; Eosinophils # 0.1 K/mcL (0.0-0.6); Hematocrit 40.4 % (37.5-50.1); Hemoglobin 13.7 g/dL (12.9-16.9); Immature Granulocytes % 0.4 % (0-4); Lymphocytes % 27.6 %; Mean Corpuscular HGB Conc 33.9 g/dL (31.6-35.5); Mean Corpuscular Hemoglobin 30.2 pg (28.0-33.3); Mean Platelet Volume 10.2 fL (9.4-12.4); Monocytes # 0.4 K/mcL (0.0-1.3); Monocytes % 5.7 %; Neutrophils # 4.7 K/mcL (1.6-8.9); Platelet Count 183 K/mcL (140-400); Red Blood Count 4.54 M/mcL (4.19-5.50); Red Cell Distribution Width 13.2 % (11.5-14.5); Segmented Neutrophils % 64.9 %
--- NOTE | 2018-06-21 11:10 | Emergency Department Note ---
Disposition Clinical Impression: Chest pain due to CAD Disposition: Admitted As Inpatient Condition: Good Referrals: Ronal Landon MD [Primary Care Provider] - Forms: ED Satisfaction Letter Time of Disposition: 12:28 General Adult HPI - General Chief complaint: ED Chest Pain Stated complaint: CP Time Seen by Provider: 06/21/18 10:42 Source: patient Mode of arrival: ambulatory Limitations: no limitations Nursing Notes Reviewed: Yes Vital Signs Reviewed: Yes - History of Present Illness HPI Narrative: 58 year old man with pmh significant for CAD s/p 3 stents last in 01/2017, HTN, HLD, and DM who presents to ED from PCP with chest pressure with radiation to L neck/UE, and back for the last 8 days that is worse with exertion. It is intermittent and can last for min to hours. He additionally has had worsening SOB, and dizziness today. He denies blurry vision, diplopia, syncope, pleuritic chest pain, subjective fever/chills, diaphoresis, N/V, abdominal pain, edema, hx of DVT, leg pain/swelling or syncope. He was admitted last 8 days ago for same symptoms and had cardiac workup and neg stress test. He did not try his home nitro today but said nitro relieved his symptoms when he was here last week. Pt Subjective Complaint: chest pressure Onset (ago): week(s) Location: chest Radiation: back, neck, extremity Pain Severity: similar to prior episodes Pain Scale: 4 Quality: other (pressure) Consistency: intermittent Improves with: rest Worsens with: movement Associated symptoms: Reports: cough, shortness of breath. Denies: diaphoresis, fever/chills, nausea/vomiting, syncope Treatments Prior to Arrival: none - Related Data Home Medications Medication Instructions Recorded Confirmed Albuterol Sulfate [Ventolin Hfa] 18 gm IH DAILY PRN 10/29/15 06/14/18 Amlodipine Besylate 10 mg PO DAILY 10/29/15 06/14/18 Aspirin [Adult Low Dose Aspirin EC] 81 mg PO DAILY 10/29/15 06/14/18 Budesonide/Formoterol 160/4.5 2 puff IH BIDR PRN 10/29/15 06/14/18 [Symbicort 160/4.5] Loratadine [Claritin] 10 mg PO PRN PRN 10/29/15 06/14/18 [place]-3 Fatty Acids [Fish Oil] 600 mg PO DAILY 10/29/15 06/14/18 Sertraline [Zoloft] 100 mg PO DAILY 10/29/15 06/14/18 Metformin HCl 1,000 mg PO BID 06/14/18 06/14/18 Multivitamin with Minerals 1 tab PO DAILY 06/14/18 06/14/18 [One-A-Day Maximum Formula] Losartan [Cozaar] 100 mg PO 06/15/18 Previous Rx's Medication Instructions Recorded Atorvastatin [Lipitor] 80 mg PO HS #60 tablet 01/20/17 Clopidogrel [Plavix] 75 mg PO DAILY #30 tablet 01/20/17 Nitroglycerin 0.4 mg SL Q5MIN PRN #10 tab.subl 01/20/17 Atenolol [Tenormin] 50 mg PO DAILY #30 tablet 06/15/18 Losartan Potassium [Cozaar] 50 mg PO DAILY #30 tab 06/15/18 Allergies Allergy/AdvReac Type Severity Reaction Status Date / Time No Known Allergies Allergy Verified 01/18/17 08:20 All systems ED: reviewed and negative except as stated. Constitutional: Denies: fever, chills Eyes: Denies: vision change Cardiovascular: Reports: chest pain, palpitations, dyspnea on exertion. Denies: orthopnea, edema, syncope Respiratory: Reports: cough, dyspnea Gastrointestinal: Denies: abdominal pain, nausea, vomiting Musculoskeletal: Reports: back pain, neck pain Neurological: Reports: vertigo. Denies: weakness, numbness, paresthesias Past Medical History - Past Medical History Medical history: Reports: arthritis, asthma, coronary artery disease, diabetes, GERD, hyperlipidemia, hypertension, other Surgical history: Reports: cholecystectomy Psychiatric history: Reports: depression - Social History Smoking Status: Never smoker Smokeless Tobacco Status: No Alcohol use: Reports: none Drug use: Reports: none Physical Exam - General Limitations: no limitations General appearance: alert, in no apparent distress - Head Head exam: atraumatic, normocephalic, normal inspection - Eye Eye exam: Present: normal appearance - ENT ENT exam: mucous membranes moist - Neck Neck exam: Present: normal inspection, trachea midline - Chest Chest inspection: Present: normal inspection, symmetric chest wall rise - Cardiovascular Cardiovascular exam: Present: regular rate, normal rhythm, normal heart sounds, +S1, +S2 - Abdominal Exam Abdominal exam: Present: soft, Non-Tender - Extremities Exam Extremities exam: Present: normal inspection, normal capillary refill, pedal edema. Absent: tenderness, calf tenderness - Neurological Exam Neurological exam: Present: alert - Psychiatric Psychiatric exam: Present: normal affect - Skin Skin exam: Present: warm, dry, intact, normal color Course Course Narrative: Mid sternal chest pressure, exertional dyspnea, dizziness for last 8 days intermittently, admitted last week same presentation with negative stress. HEART 5. Will trial sl nitro now. ECG 1049: nsr, hr 70, pr 173, qt 516, normal p axis, baseline wander in II, III, aVF, no acute st elevations/depressions, t wave inversion anteriorly but was present on previous ecg from 06/13/18. 1152: Troponin neg, symptoms resolved with single nitro, no complaints now. Will call cards now to discuss case. 1203: Spoke to Dr Jeter and said if would like to bring him in can be re consulted and can review case to see if any additional interventions would be needed. Will admit to hospitalist service for continued evaluation. 1225: Spoke to hospitalist who accepted pt. Will consult cardiology. Vital Signs Temperature 98.0 F 06/21/18 10:39 Pulse Rate 77 06/21/18 10:39 Respiratory Rate 22 06/21/18 10:39 Blood Pressure 185/91 06/21/18 10:39 O2 Sat by Pulse Oximetry 99 06/21/18 10:39 Temperature 98.0 F 06/21/18 10:48 Pulse Rate 90 06/21/18 11:31 Respiratory Rate 16 06/21/18 11:31 Blood Pressure 120/84 06/21/18 11:31 O2 Sat by Pulse Oximetry 96 06/21/18 11:31 Oxygen Delivery Oxygen Delivery Room Air Medical Decision Making - Lab Data Result diagrams: 06/21/18 10:56 06/21/18 10:56 Lab Results 06/21/18 06/21/18 Range/Units 10:56 10:56 WBC 7.2 (4.3-11.1) K/mcL RBC 4.54 (4.19-5.50) M/mcL Hgb 13.7 (12.9-16.9) g/dL Hct 40.4 (37.5-50.1) % MCV 89.0 (83.0-100.0) fL MCH 30.2 (28.0-33.3) pg MCHC 33.9 (31.6-35.5) g/dL RDW 13.2 (11.5-14.5) % Plt Count 183 (140-400) K/mcL MPV 10.2 (9.4-12.4) fL Immature Gran % 0.4 (0-4) % Seg Neutrophils % 64.9 % Lymphocytes % 27.6 % Monocytes % 5.7 % Eosinophils % 1.0 % Basophils % 0.4 % Neutrophils # 4.7 (1.6-8.9) K/mcL Lymphocytes # 2.0 (0.6-4.6) K/mcL Monocytes # 0.4 (0.0-1.3) K/mcL Eosinophils # 0.1 (0.0-0.6) K/mcL Basophils # 0.0 (0.0-0.2) K/mcL Sodium 141 (136-145) mEq/L Potassium 3.8 (3.5-5.1) mEq/L Chloride 106 (98-107) mEq/L Carbon Dioxide 24 (23-29) mEq/L BUN 13 (8-23) mg/dL Creatinine 1.00 (0.70-1.30) mg/dL Est GFR ( Amer) > 60 (> 60) Est GFR (Non-Af Amer) > 60 (> 60) BUN/Creatinine Ratio 13 (6-26) Glucose 168 H (70-105) mg/dL Calculated Osmolality 296 (280-300) Calcium 10.0 (8.6-10.3) mg/dL Troponin I < 0.03 (< 0.04) ng/mL
[2018-06-21 11:28] LABS: BUN/Creatinine Ratio 13 (6-26); Blood Urea Nitrogen 13 mg/dL (8-23); Carbon Dioxide 24 mEq/L (23-29); Chloride 106 mEq/L (98-107); Glucose 168 mg/dL (70-105); Osmolality,Calculated 296 (280-300); Potassium 3.8 mEq/L (3.5-5.1); Sodium 141 mEq/L (136-145); Troponin I < 0.03 ng/mL (< 0.04); eGFR For Non-African Americans > 60 (> 60)
--- NOTE | 2018-06-21 11:43 | Emergency Department Note ---
Disposition Clinical Impression: Chest pain due to CAD Disposition: Admitted As Inpatient Condition: Good General Adult HPI - General Chief complaint: ED Chest Pain Stated complaint: CP Time Seen by Provider: 06/21/18 10:42 Source: patient Mode of arrival: ambulatory Limitations: no limitations - History of Present Illness Location: chest Pain Scale: 0 Quality: other (pressure) Improves with: rest Worsens with: movement Associated symptoms: Reports: cough, shortness of breath. Denies: diaphoresis, fever/chills, nausea/vomiting, syncope Treatments Prior to Arrival: none - Related Data Home Medications Medication Instructions Recorded Confirmed Albuterol Sulfate [Ventolin Hfa] 2 puff IH QID 10/29/15 06/21/18 Amlodipine Besylate 10 mg PO DAILY 10/29/15 06/21/18 Budesonide/Formoterol 160/4.5 2 puff IH BIDR PRN 10/29/15 06/21/18 [Symbicort 160/4.5] [place]-3 Fatty Acids [Fish Oil] 600 mg PO DAILY 10/29/15 06/21/18 Sertraline [Zoloft] 100 mg PO DAILY 10/29/15 06/21/18 Metformin HCl 1,000 mg PO BID 06/14/18 06/21/18 Multivitamin with Minerals 1 tab PO DAILY 06/14/18 06/21/18 [One-A-Day Maximum Formula] Aspirin [Adult Aspirin] 81 mg PO DAILY 06/21/18 06/21/18 Atorvastatin [Lipitor] 80 mg PO QAM 06/21/18 06/21/18 Previous Rx's Medication Instructions Recorded Clopidogrel [Plavix] 75 mg PO DAILY #30 tablet 01/20/17 Nitroglycerin 0.4 mg SL Q5MIN PRN #10 tab.subl 01/20/17 Atenolol [Tenormin] 50 mg PO DAILY #30 tablet 06/15/18 Losartan Potassium [Cozaar] 50 mg PO DAILY #30 tab 06/15/18 Allergies Allergy/AdvReac Type Severity Reaction Status Date / Time No Known Allergies Allergy Verified 01/18/17 08:20 Constitutional: Denies: fever, chills Eyes: Denies: vision change Cardiovascular: Reports: chest pain, palpitations, dyspnea on exertion. Denies: orthopnea, edema, syncope Respiratory: Reports: cough, dyspnea Gastrointestinal: Denies: abdominal pain, nausea, vomiting Musculoskeletal: Reports: back pain, neck pain Neurological: Reports: vertigo. Denies: weakness, numbness, paresthesias Past Medical History - Past Medical History Medical history: Reports: arthritis, asthma, coronary artery disease, diabetes, GERD, hyperlipidemia, hypertension, other Surgical history: Reports: cholecystectomy Psychiatric history: Reports: depression - Social History Smoking Status: Never smoker Smokeless Tobacco Status: No Alcohol use: Reports: none Drug use: Reports: none Physical Exam - General Limitations: no limitations General appearance: alert, in no apparent distress Course Vital Signs Temperature 98.0 F 06/21/18 10:39 Pulse Rate 77 06/21/18 10:39 Respiratory Rate 22 06/21/18 10:39 Blood Pressure 185/91 06/21/18 10:39 O2 Sat by Pulse Oximetry 99 06/21/18 10:39 Temperature 98.1 F 06/21/18 13:48 Pulse Rate 70 06/21/18 13:48 Respiratory Rate 18 06/21/18 13:48 Blood Pressure 148/88 06/21/18 13:48 O2 Sat by Pulse Oximetry 98 06/21/18 13:48 Oxygen Delivery Oxygen Delivery Room Air Medical Decision Making - Lab Data Result diagrams: 06/21/18 13:19 06/21/18 10:56 Lab Results 06/21/18 06/21/18 Range/Units 10:56 10:56 WBC 7.2 (4.3-11.1) K/mcL RBC 4.54 (4.19-5.50) M/mcL Hgb 13.7 (12.9-16.9) g/dL Hct 40.4 (37.5-50.1) % MCV 89.0 (83.0-100.0) fL MCH 30.2 (28.0-33.3) pg MCHC 33.9 (31.6-35.5) g/dL RDW 13.2 (11.5-14.5) % Plt Count 183 (140-400) K/mcL MPV 10.2 (9.4-12.4) fL Immature Gran % 0.4 (0-4) % Seg Neutrophils % 64.9 % Lymphocytes % 27.6 % Monocytes % 5.7 % Eosinophils % 1.0 % Basophils % 0.4 % Neutrophils # 4.7 (1.6-8.9) K/mcL Lymphocytes # 2.0 (0.6-4.6) K/mcL Monocytes # 0.4 (0.0-1.3) K/mcL Eosinophils # 0.1 (0.0-0.6) K/mcL Basophils # 0.0 (0.0-0.2) K/mcL Sodium 141 (136-145) mEq/L Potassium 3.8 (3.5-5.1) mEq/L Chloride 106 (98-107) mEq/L Carbon Dioxide 24 (23-29) mEq/L BUN 13 (8-23) mg/dL Creatinine 1.00 (0.70-1.30) mg/dL Est GFR ( Amer) > 60 (> 60) Est GFR (Non-Af Amer) > 60 (> 60) BUN/Creatinine Ratio 13 (6-26) Glucose 168 H (70-105) mg/dL Calculated Osmolality 296 (280-300) Calcium 10.0 (8.6-10.3) mg/dL Troponin I < 0.03 (< 0.04) ng/mL Critical Care Time Critical Care Time: No Attestation Statement - Attestation Attestation: I examined this patient and my medical decision-making was reviewed with the ESTHETICIAN/OWNER/PA/Advanced Practice Nurse/Resident Physician. I agree with the documented findings, disposition and treatment plan as described except to the extent set forth below. Patient presents from [place] and he was admitted here last week with a stress test and now has chest pain which is constant and started at 6:30 this morning with radiation to left shoulder and does have exertional dyspnea. No radiation to the back. Patient does have ongoing pain, heart score of 6, his symptoms are concerning and will be admitted to the hospital. Initial troponin is negative. No acute change on the chest x-ray. Did receive sublingual nitroglycerin. I did review the patient's EKG showing normal sinus rhythm with a rate of 70 and anterior T-wave inversion which has been present on past EKGs including EKG from June [id number]
[2018-06-21] MEDS ORDERED: Naloxone 0.4 MG/ML INJ IVP PRN (12:33)
[2018-06-21] MEDS ORDERED: Budesonide/Formoterol 160/4.5 1 PUFF INH IH PRN (13:20)
[2018-06-21 13:28] LABS: Hematocrit 41.9 % (37.5-50.1); Hemoglobin 13.9 g/dL (12.9-16.9); Mean Corpuscular HGB Conc 33.2 g/dL (31.6-35.5); Mean Corpuscular Hemoglobin 29.9 pg (28.0-33.3); Mean Corpuscular Volume 90.1 fL (83.0-100.0); Platelet Count 171 K/mcL (140-400); Red Blood Count 4.65 M/mcL (4.19-5.50); Red Cell Distribution Width 13.3 % (11.5-14.5)
--- NOTE | 2018-06-21 13:35 | Internal Med History&Physical ---
Addendum entered and electronically signed by Surinder Kunz MD 06/21/18 16:51: Patient seen and evaluated at bed side. A complete physical exam done. Discussed plan of care with QUALITY ANALYST. Addendum entered and electronically signed by Rachid Mcwilliams 06/21/18 15:22: Original Note: Date of Encounter: 06/21/18 Time of Encounter: 13:30 Internal Medicine - H&P: HPI Admitted From: Home Plans for Post Hospital Care: Home History of present illness: 58-year-old male with past medical history of CAD status post stents placement, hypertension, hyperlipidemia, diabetes, obesity, and a COPD presented with intermittent, subacute left-sided chest pain. Patient describes the pain was dull, and radiated to the left arm and back, exertional, relieved by nitroglycerin. He has significant history of CAD. He underwent left heart catheterization in 01/2017, when he was found having severe stenosis in LAD and RCA, 2 stents were placed. He was hospitalized about a week ago for the same complaint, when a stress nuclear test was performed and the results was negative for ischemia. Patient was discharged home, however, he reported still having intermittent chest pain/chest tightness, lasts from several minutes to hours, exertional, relieved by rest. He went to PCPs office today, and was directed to the ED. He denies fever, chills, night sweats. He had a no shortness breath, palpitation, or syncope. At the ED, initial vital signs showed elevated BP. Patient was given 1 dose of nitroglycerin, which partially relieved his chest pain and also proton the blood pressure. Labs revealed negative troponin. EKG no acute ST-T change. Patient will be admitted as observation for further evaluation. Past Med Surg Social Fam HX - Past Medical History Medical history: arthritis, asthma, coronary artery disease, diabetes, GERD, hyperlipidemia, hypertension, other Additional medical history: sleep apnea Psychiatric history: depression - Past Surgical History Surgical History: cholecystectomy Additional surgical history: Cardiac stents x3 - Social History Smoking Status: Never smoker Smokeless Tobacco Status: No Alcohol use: none Drug use: none - Family History Father Hx Family Cardiac Disorders: Yes Internal Medicine - H&P: Meds Albuterol Sulfate [Ventolin Hfa] 2 puff IH QID 10/29/15 [History] Amlodipine Besylate 10 mg PO DAILY 10/29/15 [History] Budesonide/Formoterol 160/4.5 [Symbicort 160/4.5] 2 puff IH BIDR PRN 10/29/15 [History] [place]-3 Fatty Acids [Fish Oil] 600 mg PO DAILY 10/29/15 [History] Sertraline [Zoloft] 100 mg PO DAILY 10/29/15 [History] Clopidogrel [Plavix] 75 mg PO DAILY #30 tablet 01/20/17 [Rx] Nitroglycerin 0.4 mg SL Q5MIN PRN #10 tab.subl 01/20/17 [Rx] Metformin HCl 1,000 mg PO BID 06/14/18 [History] Multivitamin with Minerals [One-A-Day Maximum Formula] 1 tab PO DAILY 06/14/18 [History] Atenolol [Tenormin] 50 mg PO DAILY #30 tablet 06/15/18 [Rx] Losartan Potassium [Cozaar] 50 mg PO DAILY #30 tab 06/15/18 [Rx] Aspirin [Adult Aspirin] 81 mg PO DAILY 06/21/18 [History] Atorvastatin [Lipitor] 80 mg PO QAM 06/21/18 [History] Allergy/AdvReac Type Severity Reaction Status Date / Time No Known Allergies Allergy Verified 01/18/17 08:20 All Systems PM: A 10-system review of systems was performed and is negative for pertinent findings except as documented above in the HPI. Review of systems: REVIEW OF SYSTEMS: CONSTITUTIONAL: No weight loss, fever, chills, weakness or fatigue. HEENT: Eyes: No visual loss, blurred vision, double vision or yellow sclerae. Ears, Nose, Throat: No hearing loss, sneezing, congestion, runny nose or sore throat. SKIN: No rash or itching. CARDIOVASCULAR: see HPI. RESPIRATORY: No shortness of breath, cough or sputum. GASTROINTESTINAL: No anorexia, nausea, vomiting or diarrhea. No abdominal pain or blood. GENITOURINARY: No dysuria, urgency, or frequency. NEUROLOGICAL: No headache, dizziness, syncope, paralysis, ataxia, numbness or tingling in the extremities. No change in bowel or bladder control. MUSCULOSKELETAL: No muscle, back pain, joint pain or stiffness. HEMATOLOGIC: No anemia, bleeding or bruising. LYMPHATICS: No enlarged nodes. No history of splenectomy. PSYCHIATRIC: No history of depression or anxiety. ENDOCRINOLOGIC: No reports of sweating, cold or heat intolerance. No polyuria or polydipsia. - Constitutional Vitals: Temp Pulse Resp BP Pulse Ox 98.0 F 90 16 147/92 96 06/21/18 10:48 06/21/18 11:31 06/21/18 13:03 06/21/18 13:03 06/21/18 11:31 General appearance: Present: cooperative, A&O X 3, answers questions appropriately Exam: PHYSICAL EXAMINATION: GENERAL APPEARANCE: The patient is alert, oriented and in no acute distress. HEENT: Head is normocephalic. The sinuses are nontender. Pupils are equal and reactive. The nares are patent. Oropharynx clear without lesions. NECK: Supple without lymphadenopathy. HEART: Regular rate and rhythm. LUNGS: No crackles or wheezes are heard. ABDOMEN: Soft, nontender, nondistended with good bowel sounds heard. Inguinal area is normal. EXTREMITIES: Without cyanosis, clubbing or edema. NEUROLOGICAL: Gross nonfocal. SKIN: Warm and dry without any rash. Internal Med - H&P Results - Labs CBC & Chem 7: 06/21/18 13:19 06/21/18 10:56 Labs: Short CBC 06/21/18 06/21/18 Range/Units 10:56 13:19 WBC 7.2 8.1 (4.3-11.1) K/mcL Hgb 13.7 13.9 (12.9-16.9) g/dL Hct 40.4 41.9 (37.5-50.1) % Plt Count 183 171 (140-400) K/mcL Neutrophils # 4.7 (1.6-8.9) K/mcL BMP 06/21/18 10:56 Sodium 141 Potassium 3.8 Chloride 106 Carbon Dioxide 24 BUN 13 Creatinine 1.00 Glucose 168 H Calcium 10.0 Cardiac Enzymes 06/21/18 Range/Units 10:56 Troponin I < 0.03 (< 0.04) ng/mL - Impressions ITS Impressions Chest X-Ray 06/21/18 10:43 IMPRESSION: No evidence of acute cardiopulmonary disease. D/ / Lamont Allred MD / Lamont Allred MD Interpreting Provider: Lamont Allred MD - Assessment and plan (1) Chest pain Current Visit: Yes Status: Acute Assessment and plan: 58-year-old male with past medical history of CAD status post stents placement, hypertension, hyperlipidemia, diabetes, obesity, and a COPD presented with intermittent, subacute left-sided chest pain. He was hospitalized about a week ago for the same complaint, when a stress nuclear test was performed and the results was negative for ischemia. At the ED, initial vital signs showed elevated BP. Patient was given 1 dose of nitroglycerin, which partially relieved his chest pain and also proton the blood pressure. Labs revealed negative troponin. EKG no acute ST-T change. - We will continue cycling troponin, telemetry monitoring, and EKG as needed. Nitroglycerin as needed for chest pain. - Cardiology consult. Qualifiers: Chest pain type: precordial pain Qualified Code(s): R07.2 - Precordial pain (2) CAD (coronary artery disease) Current Visit: No Status: Resolved Assessment and plan: 2 new current treatment for CAD including aspirin, Plavix, atenolol, losartan, and statins. Qualifiers: Coronary Disease-Associated Artery/Lesion type: [place] artery [place] vs. transplanted heart: [place] heart Associated angina: with unstable angina Qualified Code(s): I25.110 - Atherosclerotic heart disease of [place] coronary artery with unstable angina pectoris (3) Diabetes mellitus Current Visit: No Status: Chronic Assessment and plan: Hold oral agent for now, status post insulin sliding scale. Qualifiers: Diabetes mellitus type: type 2 Diabetes mellitus long term care social worker insulin use: without chcf use Diabetes mellitus complication status: with unspecified complications Qualified Code(s): E11.8 - Type 2 diabetes mellitus with unspecified complications (4) HTN (hypertension) Current Visit: No Status: Chronic Assessment and plan: Continue monitoring blood pressure, continue home medications. Qualifiers: Hypertension type: essential hypertension Qualified Code(s): I10 - Essential (primary) hypertension (5) Morbid obesity with BMI of 40.0-44.9, adult Current Visit: No Status: Chronic Assessment and plan: Weight control discussed with the patient. (6) BRIAN (obstructive sleep apnea) Current Visit: No Status: Chronic Assessment and plan: CPAP as needed. (7) COPD (chronic obstructive pulmonary disease) Current Visit: No Status: Chronic Assessment and plan: No respiratory distress, continue home medication. Qualifiers: COPD type: unspecified COPD Qualified Code(s): J44.9 - Chronic obstructive pulmonary disease, unspecified (8) DVT prophylaxis Current Visit: Yes Status: Acute Assessment and plan: Heparin subcutaneous. - Time Spent With Patient Total time spent is greater than 50% in coordination of care (as documented) at patient's floor/unit and/or counseling patient: Greater than 35 minutes
[2018-06-21] MEDS ORDERED: D5% in Water 1,000 ML IVC PRN (13:53)
[2018-06-21] MEDS ORDERED: Dextrose Gel 15 GM/37.5 ML TUBE PO PRN ×2 (13:53)
[2018-06-21] MEDS ORDERED: *HR* Dextrose 50 % in Water (Syg) 50 ML SYRINGE IVP PRN (13:53)
--- NOTE | 2018-06-21 14:01 | Cardiology Consult Note ---
<Mony Regalado - Last Filed: 06/21/18 14:05> Date of Encounter: 06/21/18 Time of Encounter: 13:40 Assessment and Plan (1) Chest pain Current Visit: Yes Status: Acute Presents with typical/atypical chest pain symptoms. Troponin negative. No ischemic ECG changes noted. Recent admission with negative nuclear stress test. Hx of CAD s/p PCI--PCI to LAD January 2017, and high risk PCI to RCA at [facility] also in January 2017--existing mild non-obstructive CAD. Blood pressure significantly elevated upon admission, will add nitrates for suspected angina and also to improve BP. Check limited TTE to evaluate structure and function. Check troponin for a total of 3. If CP does not improve with trial of nitrates, may need to consider LHC as inpat ient. Will continue to follow. Qualifiers: Chest pain type: unspecified Qualified Code(s): R07.9 - Chest pain, unspecified (2) CAD (coronary artery disease) Current Visit: Yes Status: Acute Plan as above. Continue asa, statin, BB, plavix. Qualifiers: Coronary Disease-Associated Artery/Lesion type: [place] artery [place] vs. transplanted heart: [place] heart Associated angina: with stable angina Qualified Code(s): I25.118 - Atherosclerotic heart disease of [place] coronary artery with other forms of angina pectoris (3) HTN (hypertension) Current Visit: No Status: Chronic Suboptimally controlled in the outpatient setting. Recent admission, antihypertensives reportedly decreased d/t orthostatic hypotension. BP uncontrolled upon admission, will add nitrates. If remains elevated, may need to uptitrate ARB--defer to primary service. Qualifiers: Hypertension type: essential hypertension Qualified Code(s): I10 - Essential (primary) hypertension Discussion w patient/family: The assessment and plan as outlined above was discussed with the patient and/or family members who expressed understanding and agreement. All questions were answered. Thank you for involving us in the care of your patient. Please call with any questions. The patient will be discussed and reviewed with Dr. Mike Jeter; changes to be made accordingly. History of Present Illness Consult date: 06/21/18 Requesting physician: Rachid Mcwilliams Consult reason: Chest pain Chief complaint: Chest pain History of present illness: Mr. Zuniga is a 58 year old male with PMHx significant of CAD s/p PCI (2017), DMII, HTN, morbid obesity, and BRIAN On CPAP who presented to the ED (recommended by PCP) with complaints of chest discomfort. Reports symptoms have been ongoing for the past 2 weeks. Patient states he was admitted at [facility] last week with similar symptoms, underwent nuclear stress testing which was negative for ischemia; his symptoms were felt to be secondary to orthostatic hypotension and atenolol and losartan were decreased. He reports chest pain, left-sided with radiation across chest to shoulder/back, is heaviness and pressure. Lasts for several minutes at a time, resolves spontaneously. He reports discomfort occurs with exertion and at rest. Associated symptoms include fatigue, weakness, and significant shortness of breath. Of note, blood pressures have been elevated over the past week. Reports compliance with all prescribed medications. States symptoms are similar to prior angina. Prior CV: TTE 01/18/17: LVEF 65%, mild LVDD, no significant valvular dysfunction, normal motion [facility] 01/19/17: EF 60%, s/p successful PTCA/DESTINI to pLAD; PTCA to pRCA (unsucce ssful placement of DESTINI); otherwise non-obstructive CAD--20% LMCA, 20% LCx, 40% Ramus [facility] 01/24/17: s/p successful PTCA/DESTINI x2 to prox and mid RCA Nuclear stress 06/14/18: perfusion imaging negative for ischemia or infarct, gated EF >70% Past Med Surg Social Fam HX - Past Medical History Attestation: Yes The following information was validated with the patient. Source: patient Medical history: arthritis, asthma, coronary artery disease, diabetes, GERD, hyperlipidemia, hypertension, other Additional medical history: sleep apnea Psychiatric history: depression - Past Surgical History Surgical History: cholecystectomy Additional surgical history: Cardiac stents x3 - Social History Smoking Status: Never smoker Smokeless Tobacco Status: No Alcohol use: none Drug use: none - Family History Father Hx Family Cardiac Disorders: Yes Mother Living Status: Cause of : sepsis Medications and Allergies RX: Albuterol Sulfate [Ventolin Hfa] 2 puff IH QID 10/29/15 [History] RX: Amlodipine Besylate 10 mg PO DAILY 10/29/15 [History] RX: Budesonide/Formoterol 160/4.5 [Symbicort 160/4.5] 2 puff IH BIDR PRN 10/29/15 [History] RX: [place]-3 Fatty Acids [Fish Oil] 600 mg PO DAILY 10/29/15 [History] RX: Sertraline [Zoloft] 100 mg PO DAILY 10/29/15 [History] RX: Clopidogrel [Plavix] 75 mg PO DAILY #30 tablet 01/20/17 [Rx] RX: Nitroglycerin 0.4 mg SL Q5MIN PRN #10 tab.subl 01/20/17 [Rx] RX: Metformin HCl 1,000 mg PO BID 06/14/18 [History] RX: Multivitamin with Minerals [One-A-Day Maximum Formula] 1 tab PO DAILY 06/14/18 [History] RX: Atenolol [Tenormin] 50 mg PO DAILY #30 tablet 06/15/18 [Rx] RX: Losartan Potassium [Cozaar] 50 mg PO DAILY #30 tab 06/15/18 [Rx] Aspirin [Adult Aspirin] 81 mg PO DAILY 06/21/18 [History] RX: Atorvastatin [Lipitor] 80 mg PO QAM 06/21/18 [History] Allergy/AdvReac Type Severity Reaction Status Date / Time No Known Allergies Allergy Verified 01/18/17 08:20 All Systems Review: The remainder of the systems were reviewed and are negative - Cardiovascular Cardiovascular: as per HPI Physical Examination Vital Signs, Last 4 Hours Temp Pulse Resp BP Pulse Ox 06/21/18 13:48 98.1 F 70 18 148/88 98 06/21/18 13:03 16 147/92 06/21/18 11:31 90 16 120/84 96 06/21/18 11:28 70 16 146/89 98 06/21/18 10:48 98.0 F 77 22 185/91 99 06/21/18 10:39 98.0 F 77 22 185/91 99 General: Conversant, No Apparent Distress, Other (morbidly obese) HEENT: Atraumatic, Normocephaly Cardiac: Reg Rate and Rhythm, Normal S1 and S2 Lungs: Normal Breath Sounds Neuro: Alert and responsive Abdomen: Soft Skin: No rashes noted on visualized skin Musculoskeletal: No Chest Wall Tenderness Extremities: No Edema, Normal Pulses Results 06/21/18 13:19 06/21/18 10:56 Lab Results 06/21/18 06/21/18 06/21/18 10:56 10:56 13:19 WBC 7.2 8.1 Hgb 13.7 13.9 Hct 40.4 41.9 Plt Count 183 171 Sodium 141 Potassium 3.8 Chloride 106 Carbon Dioxide 24 BUN 13 Creatinine 1.00 Glucose 168 H Calcium 10.0 Troponin I < 0.03 06/21/18 13:19 WBC Hgb Hct Plt Count Sodium Potassium Chloride Carbon Dioxide BUN Creatinine Glucose Calcium Troponin I < 0.03 Active Medications Albuterol Sulfate (Albuterol Inhaler) 2 puff IH QIDR [facility] Stop: 12/21/18 17:01 Amlodipine Besylate (Norvasc) 10 mg PO DAILY [facility] Stop: 12/22/18 09:01 Aspirin (Aspirin Ec) 81 mg PO DAILY [facility] Stop: 12/22/18 09:01 Atenolol (Tenormin) 50 mg PO DAILY [facility] Stop: 12/22/18 09:01 Atorvastatin Calcium (Lipitor) 80 mg PO QAM [facility] Stop: 12/22/18 09:01 Budesonide/Formoterol Fumarate (Symbicort) 2 puff IH BIDR PRN; Protocol PRN Reason: Shortness Of Breath Stop: 12/21/18 13:21 Clopidogrel Bisulfate (Plavix) 75 mg PO DAILY [facility] Stop: 12/22/18 09:01 Dextrose/Water (Dextrose 50% (Syg)) 25 ml IVP AD PRN PRN Reason: Hypoglycemia Stop: 12/21/18 13:54 Glucagon (Glucagen) 1 mg IM ONCE PRN PRN Reason: Hypoglycemia Stop: 12/21/18 13:54 Glucose (Gluctose) 15 gm PO ONCE PRN PRN Reason: Hypoglycemia Stop: 12/21/18 13:54 Glucose (Gluctose) 30 gm PO ONCE PRN PRN Reason: Hypoglycemia Stop: 12/21/18 13:54 Heparin Sodium (Porcine) (Heparin) 5,000 unit SQ Q12HCO [facility] Stop: 12/21/18 18:01 Dextrose (Dextrose 5%) 1,000 mls @ 100 mls/hr IVC .Q10H PRN PRN Reason: HYPOGLYCEMIA Stop: 12/21/18 13:54 Insulin Human Lispro (Humalog) 0 units SQ HS [place]; Protocol Stop: 12/21/18 21:01 Insulin Human Lispro (Humalog) 0 units SQ TIDAC [facility]; Protocol Stop: 12/21/18 16:31 Losartan Potassium (Cozaar) 50 mg PO DAILY [facility] Stop: 12/22/18 09:01 Multivitamins/Calcium (Thera M Plus) 1 tab PO DAILY [facility] Stop: 12/22/18 09:01 Naloxone HCl (Narcan) 0.4 mg IVP Q2MIN PRN PRN Reason: SEE COMMENTS Stop: 12/21/18 12:34 Nitroglycerin (Nitroglycerin) 0.4 mg SL Q5MIN PRN PRN Reason: Chest Pain Stop: 12/21/18 13:21 Pharmacy Profile Note (Patient Taking Own Medication) 0 each PO DAILY [facility] Stop: 12/22/18 09:01 Sertraline HCl (Zoloft) 100 mg PO DAILY [facility] Stop: 12/22/18 09:01 Tramadol HCl (Ultram) 50 mg PO Q6HR PRN PRN Reason: Moderate Pain Stop: 12/21/18 12:34 - Imaging and Cardiology Echo: report reviewed Cardiac cath: report reviewed - EKG Interpretation EKG results cardiology: personally reviewed Consult Discharge Plan - Plan Referrals: Ronal Landon MD [Primary Care Provider] - <Mike Jeter - Last Filed: 06/21/18 15:48> - Attending Attestation I have personally performed a face to face evaluation on this patient. I have reviewed and agree with the care plan. History and Exam by me shows: Recent negative stress test, known CAD. Will attempt a short trial of more aggressive medical mgmt. Assessment and Plan Discussion w patient/family: The assessment and plan as outlined above was discussed with the patient and/or family members who expressed understanding and agreement. All questions were answered. Thank you for involving us in the care of your patient. Please call with any questions. History of Present Illness History of present illness: Mr. Zuniga is a 58 year old male All Systems Review: The remainder of the systems were reviewed and are negative Physical Examination Vital Signs, Last 4 Hours Temp Pulse Resp BP Pulse Ox 06/21/18 15:34 98.3 F 76 20 150/90 95 06/21/18 13:48 98.1 F 70 18 148/88 98 06/21/18 13:03 16 147/92 Results 06/21/18 13:19 06/21/18 10:56 Lab Results 06/21/18 06/21/18 06/21/18 10:56 10:56 13:19 WBC 7.2 8.1 Hgb 13.7 13.9 Hct 40.4 41.9 Plt Count 183 171 Sodium 141 Potassium 3.8 Chloride 106 Carbon Dioxide 24 BUN 13 Creatinine 1.00 Glucose 168 H Calcium 10.0 Troponin I < 0.03 06/21/18 13:19 WBC Hgb Hct Plt Count Sodium Potassium Chloride Carbon Dioxide BUN Creatinine Glucose Calcium Troponin I < 0.03
[2018-06-21] MEDS ORDERED: Perflutren Lipid Microsphere 1.3 ML in 0.9 % Sodium Chloride 8.7 ML IVP ONE (15:12)
[2018-06-21] MEDS: Isosorbide MONOnitrate (24 HR) 30 MG TAB.ER.24H PO SCH (16:44)
[2018-06-21] MEDS: Insulin LISPRO 300 UNITS/3 ML VIAL SQ SCH ×2 (16:46→21:38)
[2018-06-21] MEDS: *HR* Heparin 5,000 UNIT/ML VIAL SQ SCH (16:56)
[2018-06-21] MEDS: Nitroglycerin 0.4 MG TAB.SUBL SL PRN ×4 (18:34→21:55)
[2018-06-21] MEDS: traMADol 50 MG TABLET PO PRN (18:48)
[2018-06-21] MEDS: Acetaminophen 325 MG TABLET PO PRN (22:07)
[2018-06-22 04:30] LABS: INR 1.1
[2018-06-22 04:33] LABS: Activated Partial Thrombo Time 34.8 Seconds (26.0-36.0)
[2018-06-22 04:49] LABS: BUN/Creatinine Ratio 15 (6-26); Blood Urea Nitrogen 17 mg/dL (8-23); Carbon Dioxide 26 mEq/L (23-29); Chloride 104 mEq/L (98-107); Glucose 132 mg/dL (70-105); Magnesium 1.9 mg/dL (1.6-2.6); Osmolality,Calculated 293 (280-300); Phosphorous 6.2 mg/dL (2.7-4.5); Potassium 3.5 mEq/L (3.5-5.1); Sodium 140 mEq/L (136-145); eGFR For Non-African Americans > 60 (> 60)
[2018-06-22] MEDS: *HR* Heparin 5,000 UNIT/ML VIAL SQ SCH ×2 (05:56→17:09)
[2018-06-22] MEDS: amLODIPine 5 MG TABLET PO SCH (09:23)
[2018-06-22] MEDS: Multivit/Ca/Min/Fe/FA 1 TAB TABLET PO SCH (09:23)
--- NOTE | 2018-06-22 09:23 | Internal Med Progress Note ---
<Carlyn Lakhani - Last Filed: 06/22/18 15:01> Hospitalist Progress Note - Exam Vitals: Temp Pulse Resp BP Pulse Ox 98.2 F 58 16 127/63 95 06/22/18 11:17 06/22/18 11:17 06/22/18 11:17 06/22/18 11:17 06/22/18 11:17 - Assessment and Plan (1) HTN (hypertension) Current Visit: No Status: Chronic (2) BRIAN (obstructive sleep apnea) Current Visit: No Status: Chronic (3) Diabetes mellitus Current Visit: No Status: Chronic (4) Morbid obesity with BMI of 40.0-44.9, adult Current Visit: No Status: Chronic (5) CAD (coronary artery disease) Current Visit: No Status: Resolved (6) DVT prophylaxis Current Visit: Yes Status: Acute (7) Chest pain Current Visit: Yes Status: Acute (8) COPD (chronic obstructive pulmonary disease) Current Visit: No Status: Chronic - Time Spent with Patient Total time spent is greater than 50% in coordination of care (as documented) at patient's floor/unit and/or counseling patient: Internal Medicine: Result - Labs CBC & Chem 7: 06/21/18 13:19 06/22/18 03:00 Labs: BMP 06/22/18 03:00 Sodium 140 Potassium 3.5 Chloride 104 Carbon Dioxide 26 BUN 17 Creatinine 1.13 Glucose 132 H Calcium 9.0 Cardiac Enzymes 06/21/18 06/22/18 Range/Units 18:59 00:21 Troponin I < 0.03 < 0.03 (< 0.04) ng/mL - ABG Interpretation ABG results: PT/INR, D-dimer PT 12.0 Seconds (9.4-12.1) 06/22/18 03:00 - Impressions Impressions Echocardiogram Limited Views 06/21/18 14:18 Impressions: LVEF 60-65%. Definity echo contrast was used. Normal right ventricular structure and function. Aortic root measures 4.1 cm, normal for BSA. Consult Discharge Plan - Plan Referrals: Ronal Landon MD [Primary Care Provider] - - Attending Attestation I examined this patient and my medical decision-making was reviewed with the Resident Physician Dr Harrington. I agree with the documented findings, disposition and treatment plan as described except to the extent set forth below/addl details below. Mr Nadia has a hx of CAD s/p multiple PCIs and recurrent evals for chest pain. He presented with chest pain and pressure, improved with nitro, HTN with BPs elevated above goal into 180s/90s. He is being followed by cardiology for assistance in treatment and work up. Awake, episode cp and pressure last night improved with nitro. None currently. Not associated with nausea or emesis or diaphoresis. Denies sob. No cough, wheezing, congestion. No le edema, calf pain or swelling, hx of blood clots, or immobilization. No headache or vision changes with bp elevation. No presyncope or syncope, no pain between shoulder blades or in neck. gen- alert, awake,appears stated age, obese eyes- pupils equal round, eom intact cv- reg rate and rhythm, normal s1,s2, no murmurs appreciated, no jvd, no le pitting edema lungs- ctabl, no wheezing, rhonchi or crackles, normal resp effort abd- soft, non tender, non distended, + bs neuro- AAOx3 Chest Pain in setting of CAD, ruled out ACS, may be ischemic chest pain given history, unlikely PE given hpi and VS, CXR neg and no indication of pulmonary disease as cause, symptoms not consistent with aortic dissection as unchanged from his priors (echo aortic root 4.1 cm) CAD s/p PCI to LAD 01/17 and high risk PCI to RCA at [facility] 01/17 Known existing mild non-obstructive CAD Recent admit for same with neg stress test echo 06/21/18 EF 60-65%, no wall motion abnormalities trops neg ekd with twi in V leads is unchanged from priors and personally reviewed -cards following and suspect angina, perhaps related to bps above goal -imdur added and being titrated, home meds cont including asa/plavix/bb/statin/arb -if pain persists with increased imdur and imprvd bp control cards is considering [facility] this admit HTN, improving, meds and adjustments as above, also on norvasc DM- hold metformin while inpt in case needs cath, SSI and accu checks <Cha Harrington - Last Filed: 06/22/18 17:08> Hospitalist Progress Note - Encounter Date of Encounter: 06/22/18 Time of Encounter: 08:30 - Subjective Interval History: Patient seen and examined. Had one episode of chest pain last night that went away with nitroglycerin. Patient is resting comfortably in bed. Vitaliy any c omplaints at this time. Denies chest pain, shortness of breath, palpitations. Denies diaphoresis, nausea/vomiting. Denies swelling. - Exam Vitals: Temp Pulse Resp BP Pulse Ox 98.2 F 66 16 140/75 95 06/22/18 06:56 06/22/18 06:56 06/22/18 06:56 06/22/18 06:56 06/22/18 06:56 Exam: General: Morbidly obese. Alert and oriented x3. No acute distress. Head: atraumatic, normocephalic. Eye: pupils equal and round. Sclera anicteric. EOMI. Mouth: oral mucosa moist. Normal oropharynx. Neck: supple. Trachea midline. Lungs: CTAB. No rhonchi, rales, or wheezing. No respiratory distress. No a ccessory muscle use. Cardiovascular: Normal S1 & S2. No rubs or gallops. No JVD. Pulse regular. Abdomen: Normal bowel sounds. Nontender. No guarding, no rigidity, no rebound. Extremities: No joint swelling, edema, or clubbing. Nontender. Skin: warm, dry, and intact. - Assessment and Plan (1) Chest pain Current Visit: Yes Status: Acute Assessment and Plan: Presented with chest pain and elevated BP 180s/90s. History of CAD s/p 2 stents in 01/2017. One dose nitroglycerin improved CP and BP. Likely secondary to angina. PE unlikely. Serial troponins negative. EKG showed no ischemic changes. Today, EKG showed sinus bradycardia. No acute changes. Recent stress nuclear test was negative. Echo pending. Imdur was started yesterday, per Cardiology. Today, imdur increased to 60mg. If chest pain not improved with nitrate trial, [facility] as inpatient. Nitroglycerin as needed for chest pain. Cardiology consulted and following. (2) CAD (coronary artery disease) Current Visit: No Status: Chronic Assessment and Plan: History of CAD s/p 2 stents in 01/2017. Continue aspirin, Plavix, atenolol, losartan, and statins. Cardiology consulted and following. (3) HTN (hypertension) Current Visit: No Status: Acute Assessment and Plan: History of HTN. On admission, BP elevated at 180s/90s. Imdur started yesterday, per Cardiology. BP improved. Continue monitoring blood pressure. Continue home medications. If BP remain elevated, increase ARB. Cardiology consulted and following. (4) Diabetes mellitus Current Visit: No Status: Chronic Assessment and Plan: Insulin sliding scale. (5) COPD (chronic obstructive pulmonary disease) Current Visit: No Status: Chronic Assessment and Plan: No respiratory distress, continue home medication. (6) BRIAN (obstructive sleep apnea) Current Visit: No Status: Chronic Assessment and Plan: CPAP as needed. (7) Morbid obesity with BMI of 40.0-44.9, adult Current Visit: No Status: Chronic Assessment and Plan: Weight control discussed with the patient. (8) DVT prophylaxis Current Visit: Yes Status: Acute Assessment and Plan: Heparin subcutaneous. - Time Spent with Patient Total time spent is greater than 50% in coordination of care (as documented) at patient's floor/unit and/or counseling patient: Internal Medicine: Result - Labs CBC & Chem 7: 06/21/18 13:19 06/22/18 03:00 Labs: Short CBC 06/21/18 06/21/18 Range/Units 10:56 13:19 WBC 7.2 8.1 (4.3-11.1) K/mcL Hgb 13.7 13.9 (12.9-16.9) g/dL Hct 40.4 41.9 (37.5-50.1) % Plt Count 183 171 (140-400) K/mcL Neutrophils # 4.7 (1.6-8.9) K/mcL BMP 06/21/18 06/22/18 10:56 03:00 Sodium 141 140 Potassium 3.8 3.5 Chloride 106 104 Carbon Dioxide 24 26 BUN 13 17 Creatinine 1.00 1.13 Glucose 168 H 132 H Calcium 10.0 9.0 Cardiac Enzymes 06/21/18 06/21/18 06/21/18 Range/Units 10:56 13:19 18:59 Troponin I < 0.03 < 0.03 < 0.03 (< 0.04) ng/mL 06/22/18 Range/Units 00:21 Troponin I < 0.03 (< 0.04) ng/mL - ABG Interpretation ABG results: PT/INR, D-dimer PT 12.0 Seconds (9.4-12.1) 06/22/18 03:00 - Impressions Impressions Chest X-Ray 06/21/18 10:43 IMPRESSION: No evidence of acute cardiopulmonary disease. D/ / Lamont Allred MD / Lamont Allred MD Interpreting Provider: Lamont Allred MD <Carlyn Lakhani - Last Filed: 06/22/18 15:01> (1) HTN (hypertension) Qualifiers: Hypertension type: essential hypertension Qualified Code(s): I10 - Essential (primary) hypertension (3) Diabetes mellitus Qualifiers: Diabetes mellitus type: type 2 Diabetes mellitus half-way insulin use: without superintendent [employer] use Diabetes mellitus complication status: with unspecified complications Qualified Code(s): E11.8 - Type 2 diabetes mellitus with unspecified complications (5) CAD (coronary artery disease) Qualifiers: Coronary Disease-Associated Artery/Lesion type: [place] artery [place] vs. transplanted heart: [place] heart Associated angina: with unstable angina Qualified Code(s): I25.110 - Atherosclerotic heart disease of [place] coronary artery with unstable angina pectoris (7) Chest pain Qualifiers: Chest pain type: unspecified Qualified Code(s): R07.9 - Chest pain, unspecified (8) COPD (chronic obstructive pulmonary disease) Qualifiers: COPD type: unspecified COPD Qualified Code(s): J44.9 - Chronic obstructive pulmonary disease, unspecified <Cha Harrington - Last Filed: 06/22/18 17:08> (1) Chest pain Qualifiers: Chest pain type: unspecified Qualified Code(s): R07.9 - Chest pain, unspecified (2) CAD (coronary artery disease) Qualifiers: Coronary Disease-Associated Artery/Lesion type: [place] artery [place] vs. transplanted heart: [place] heart Associated angina: with unstable angina Qualified Code(s): I25.110 - Atherosclerotic heart disease of [place] coronary artery with unstable angina pectoris (3) HTN (hypertension) Qualifiers: Hypertension type: essential hypertension Qualified Code(s): I10 - Essential (primary) hypertension (4) Diabetes mellitus Qualifiers: Diabetes mellitus type: type 2 Diabetes mellitus half-way insulin use: without half-way use Diabetes mellitus complication status: with unspecified complications Qualified Code(s): E11.8 - Type 2 diabetes mellitus with unspecified complications (5) COPD (chronic obstructive pulmonary disease) Qualifiers: COPD type: unspecified COPD Qualified Code(s): J44.9 - Chronic obstructive pulmonary disease, unspecified
[2018-06-22] MEDS: Isosorbide MONOnitrate (24 HR) 30 MG TAB.ER.24H PO SCH (09:24)
[2018-06-22] MEDS: Aspirin Enteric Coated 81 MG Tablet PO SCH (09:24)
[2018-06-22] MEDS: Insulin LISPRO 300 UNITS/3 ML VIAL SQ SCH ×4 (09:24→20:53)
[2018-06-22] MEDS: (Omega-3 Fatty Acids [Fish Oil] 600 MG) PO SCH (09:24)
[2018-06-22] MEDS ORDERED: Isosorbide MONOnitrate (24 HR) 30 MG TAB.ER.24H PO ONE (11:46)
--- NOTE | 2018-06-22 11:49 | Cardiology Progress Note ---
Date of Encounter: 06/22/18 Time of Encounter: 09:45 Assessment and Plan (1) Chest pain Current Visit: Yes Status: Acute Per cardiology: -Presents with typical/atypical chest pain symptoms. -Troponin negative x4. No ischemic ECG changes noted. -Recent admission with negative nuclear stress test. -Hx of CAD s/p PCI--PCI to LAD January 2017, and high risk PCI to RCA at [facility] also in January 2017--existing mild non-obstructive CAD. -Blood pressure significantly elevated upon admission, will add nitrates for suspected angina and also to improve BP. -TTE with LVEF preserved, no segmental wall motion abnormalities noted. -Reports one episode of chest pain last night, denies current. -Will increase imdur to 60mg daily. -If CP does not improve with trial of nitrates, may need to consider [facility] as inpatient. -Will continue to follow. Qualifiers: Chest pain type: unspecified Qualified Code(s): R07.9 - Chest pain, unspecified (2) CAD (coronary artery disease) Current Visit: Yes Status: Acute Per cardiology: -Plan as above. -Continue asa, statin, BB, plavix. Qualifiers: Coronary Disease-Associated Artery/Lesion type: [place] artery [place] vs. transplanted heart: [place] heart Associated angina: with stable angina Qualified Code(s): I25.118 - Atherosclerotic heart disease of [place] coronary artery with other forms of angina pectoris (3) HTN (hypertension) Current Visit: No Status: Chronic Per cardiology: -Suboptimally controlled in the outpatient setting. -Recent admission, antihypertensives reportedly decreased d/t orthostatic h ypotension. -BP uncontrolled upon admission, will add nitrates. -If remains elevated, may need to uptitrate ARB--defer to primary service. Qualifiers: Hypertension type: essential hypertension Qualified Code(s): I10 - Essential (primary) hypertension Discussion w patient/family: The assessment and plan as outlined above was discussed with the patient who expressed understanding and agreement. All questions were answered. Thank you for involving us in the care of your patient. Please call with any questions. Discussed and reviewed with Dr.John Jeter. Subjective Principal diagnosis: chest pain Interval history: Patient resting in bed comfortably. Reports had one episode of chest pain last night, took 2 nitro. Denies current chest pain. Denies shortness of breath. Objective Vital Signs, Last 4 Hours Temp Pulse Resp BP Pulse Ox 06/22/18 11:17 98.2 F 58 16 127/63 95 06/22/18 10:55 16 95 06/22/18 09:25 95 General: Conversant, No Apparent Distress HEENT: Atraumatic, Normocephaly, Mucus Membranes Moist Neck: No JVD, Normal carotid pulses Cardiac: Reg Rate and Rhythm, Normal S1 and S2, No Murmur Lungs: Normal Breath Sounds, No Wheeze, Rales, Rhonchi Neuro: Alert and responsive, No focal deficits noted Abdomen: Soft, Non-Tender Skin: No rashes noted on visualized skin Musculoskeletal: No Chest Wall Tenderness Extremities: No Clubbing, No Cyanosis, No Edema, Normal Pulses Results 06/21/18 13:19 06/22/18 03:00 Lab Results Impressions Echocardiogram Limited Views 06/21/18 14:18 Impressions: LVEF 60-65%. Definity echo contrast was used. Normal right ventricular structure and function. Aortic root measures 4.1 cm, normal for BSA. Active Medications Acetaminophen (Tylenol) 650 mg PO Q6HR PRN PRN Reason: Fever Stop: 12/21/18 21:56 Last Admin: 06/21/18 22:07 Dose: 650 mg Albuterol Sulfate (Albuterol Inhaler) 2 puff IH QIDR [facility] Stop: 12/21/18 17:01 Last Admin: 06/22/18 10:55 Dose: 2 puff Amlodipine Besylate (Norvasc) 10 mg PO DAILY [facility] Stop: 12/22/18 09:01 Last Admin: 06/22/18 09:23 Dose: 10 mg Aspirin (Aspirin Ec) 81 mg PO DAILY [facility] Stop: 12/22/18 09:01 Last Admin: 06/22/18 09:24 Dose: 81 mg Atenolol (Tenormin) 50 mg PO DAILY [facility] Stop: 12/22/18 09:01 Last Admin: 06/22/18 09:24 Dose: 50 mg Atorvastatin Calcium (Lipitor) 80 mg PO QAM [facility] Stop: 12/22/18 09:01 Last Admin: 06/22/18 09:24 Dose: 80 mg Budesonide/Formoterol Fumarate (Symbicort) 2 puff IH BIDR PRN; Protocol PRN Reason: Shortness Of Breath Stop: 12/21/18 13:21 Clopidogrel Bisulfate (Plavix) 75 mg PO DAILY [facility] Stop: 12/22/18 09:01 Last Admin: 06/22/18 09:23 Dose: 75 mg Dextrose/Water (Dextrose 50% (Syg)) 25 ml IVP AD PRN PRN Reason: Hypoglycemia Stop: 12/21/18 13:54 Glucagon (Glucagen) 1 mg IM ONCE PRN PRN Reason: Hypoglycemia Stop: 12/21/18 13:54 Glucose (Gluctose) 15 gm PO ONCE PRN PRN Reason: Hypoglycemia Stop: 12/21/18 13:54 Glucose (Gluctose) 30 gm PO ONCE PRN PRN Reason: Hypoglycemia Stop: 12/21/18 13:54 Heparin Sodium (Porcine) (Heparin) 5,000 unit SQ Q12HCO [facility] Stop: 12/21/18 18:01 Last Admin: 06/22/18 05:56 Dose: 5,000 unit Dextrose (Dextrose 5%) 1,000 mls @ 100 mls/hr IVC .Q10H PRN PRN Reason: HYPOGLYCEMIA Stop: 12/21/18 13:54 Insulin Human Lispro (Humalog) 0 units SQ HS [facility]; Protocol Stop: 12/21/18 21:01 Last Admin: 06/21/18 21:38 Dose: Not Given Insulin Human Lispro (Humalog) 0 units SQ TIDAC [facility]; Protocol Stop: 12/21/18 16:31 Last Admin: 06/22/18 09:24 Dose: Not Given Isosorbide Mononitrate (Imdur) 60 mg PO DAILY [facility] Stop: 12/23/18 09:01 Isosorbide Mononitrate (Imdur) 30 mg PO ONCE ONE Stop: 06/22/18 11:47 Losartan Potassium (Cozaar) 50 mg PO DAILY [facility] Stop: 12/22/18 09:01 Last Admin: 06/22/18 09:24 Dose: 50 mg Multivitamins/Calcium (Thera M Plus) 1 tab PO DAILY [facility] Stop: 12/22/18 09:01 Last Admin: 06/22/18 09:23 Dose: 1 tab Naloxone HCl (Narcan) 0.4 mg IVP Q2MIN PRN PRN Reason: SEE COMMENTS Stop: 12/21/18 12:34 Nitroglycerin (Nitroglycerin) 0.4 mg SL Q5MIN PRN PRN Reason: Chest Pain Stop: 12/21/18 13:21 Last Admin: 06/21/18 21:55 Dose: 0.4 mg Pharmacy Profile Note (Patient Taking Own Medication) 0 each PO DAILY [facility] Stop: 12/22/18 09:01 Last Admin: 06/22/18 09:24 Dose: Not Given Sertraline HCl (Zoloft) 100 mg PO DAILY [facility] Stop: 12/22/18 09:01 Last Admin: 06/22/18 09:24 Dose: 100 mg Tramadol HCl (Ultram) 50 mg PO Q6HR PRN PRN Reason: Moderate Pain Stop: 12/21/18 12:34 Last Admin: 06/21/18 18:48 Dose: 50 mg Laboratory Tests 06/21/18 06/21/18 06/21/18 10:56 13:19 18:59 Creatinine Troponin I < 0.03 < 0.03 < 0.03 06/22/18 06/22/18 00:21 03:00 Creatinine 1.13 Troponin I < 0.03 - Imaging and Cardiology Chest Xray: report reviewed Echo: report reviewed Cardiac cath: report reviewed - EKG Interpretation EKG results cardiology: other (Telemetry reviewed with average HR previous 12 hours noted to be 67, SR. PACs noted.) Consult Discharge Plan - Plan Referrals: Ronal Landon MD [Primary Care Provider] -
--- NOTE | 2018-06-22 11:59 | Electrocardiograph Report ---
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
[2018-06-22] MEDS: Acetaminophen 325 MG TABLET PO PRN (14:35)
[2018-06-22] MEDS: Nitroglycerin 0.4 MG TAB.SUBL SL PRN (16:56)
--- NOTE | 2018-06-22 19:06 | Electrocardiograph Report ---
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
[2018-06-23] MEDS: *HR* Heparin 5,000 UNIT/ML VIAL SQ SCH ×2 (05:13→17:47)
[2018-06-23] MEDS: Insulin LISPRO 300 UNITS/3 ML VIAL SQ SCH ×4 (09:18→20:45)
[2018-06-23] MEDS: amLODIPine 5 MG TABLET PO SCH (09:20)
[2018-06-23] MEDS: Aspirin Enteric Coated 81 MG Tablet PO SCH (09:20)
[2018-06-23] MEDS: Isosorbide MONOnitrate (24 HR) 60 MG TAB.ER.24H PO SCH (09:20)
[2018-06-23] MEDS: Multivit/Ca/Min/Fe/FA 1 TAB TABLET PO SCH (09:20)
[2018-06-23] MEDS: (Omega-3 Fatty Acids [Fish Oil] 600 MG) PO SCH (09:21)
[2018-06-23 09:57] LABS: Basophils % 0.3 %; Eosinophils # 0.1 K/mcL (0.0-0.6); Eosinophils % 1.3 %; Hemoglobin 12.5 g/dL (12.9-16.9); Immature Granulocytes % 0.8 % (0-4); Lymphocytes # 1.6 K/mcL (0.6-4.6); Lymphocytes % 20.6 %; Mean Corpuscular HGB Conc 33.8 g/dL (31.6-35.5); Mean Corpuscular Volume 88.9 fL (83.0-100.0); Mean Platelet Volume 10.2 fL (9.4-12.4); Monocytes # 0.7 K/mcL (0.0-1.3); Monocytes % 8.3 %; Neutrophils # 5.5 K/mcL (1.6-8.9); Platelet Count 158 K/mcL (140-400); Red Blood Count 4.16 M/mcL (4.19-5.50); Red Cell Distribution Width 13.2 % (11.5-14.5); Segmented Neutrophils % 68.7 %
--- NOTE | 2018-06-23 10:03 | Internal Med Progress Note ---
<Carlyn Lakhani - Last Filed: 06/23/18 15:50> Hospitalist Progress Note - Exam Vitals: Temp Pulse Resp BP Pulse Ox 98.5 F 63 18 125/74 95 06/23/18 15:44 06/23/18 15:44 06/23/18 15:44 06/23/18 15:44 06/23/18 15:44 - Assessment and Plan (1) HTN (hypertension) Current Visit: No Status: Acute (2) BRIAN (obstructive sleep apnea) Current Visit: No Status: Chronic (3) Diabetes mellitus Current Visit: No Status: Chronic (4) Morbid obesity with BMI of 40.0-44.9, adult Current Visit: No Status: Chronic (5) CAD (coronary artery disease) Current Visit: No Status: Chronic (6) DVT prophylaxis Current Visit: Yes Status: Acute (7) Chest pain Current Visit: Yes Status: Acute (8) COPD (chronic obstructive pulmonary disease) Current Visit: No Status: Chronic - Time Spent with Patient Total time spent is greater than 50% in coordination of care (as documented) at patient's floor/unit and/or counseling patient: Internal Medicine: Result - Labs CBC & Chem 7: 06/23/18 09:48 06/23/18 09:48 Labs: Short CBC 06/23/18 Range/Units 09:48 WBC 7.9 (4.3-11.1) K/mcL Hgb 12.5 L (12.9-16.9) g/dL Hct 37.0 L (37.5-50.1) % Plt Count 158 (140-400) K/mcL Neutrophils # 5.5 (1.6-8.9) K/mcL BMP 06/23/18 09:48 Sodium 138 Potassium 4.1 Chloride 104 Carbon Dioxide 28 BUN 14 Creatinine 1.06 Glucose 182 H Calcium 8.8 - ABG Interpretation ABG results: PT/INR, D-dimer PT 12.0 Seconds (9.4-12.1) 06/22/18 03:00 Consult Discharge Plan - Plan Referrals: Ronal Landon MD [Primary Care Provider] - - Attending Attestation I examined this patient and my medical decision-making was reviewed with the Resident Physician Dr Harrington. I agree with the documented findings, disposition and treatment plan as described except to the extent set forth below/addl details below. Mr Nadia has a hx of CAD s/p multiple PCIs and recurrent evals for chest pain. He presented with chest pain and pressure, improved with nitro, HTN with BPs elevated above goal into 180s/90s. He is being followed by cardiology for assistance in treatment and work up. Awake, no chest pain this morning, denies pressure, presyncope, sob, diaphroesis n/v. Later in day had another chest pain episode without ekg changes and plan for LHC in am gen- alert, awake,appears stated age, obese cv- reg rate and rhythm, normal s1,s2, no murmurs appreciated, no jvd, no le pitting edema lungs- ctabl, no wheezing, rhonchi or crackles, normal resp effort on o2 nc abd- soft, non tender, non distended, + bs neuro- AAOx3 Chest Pain in setting of CAD, ruled out ACS, may be ischemic chest pain given history, unlikely PE given hpi and VS, CXR neg and no indication of pulmonary disease as cause, symptoms not consistent with aortic dissection as unchanged from his priors (echo aortic root 4.1 cm) CAD s/p PCI to LAD 01/17 and high risk PCI to RCA at [facility] 01/17 Known existing mild non-obstructive CAD Recent admit for same with neg stress test echo 06/21/18 EF 60-65%, no wall motion abnormalities trops neg ekh with twi in V leads is unchanged from priors and personally reviewed -cards following and suspect angina, perhaps related to bps above goal -imdur added and being titrated, home meds cont including asa/plavix/bb/statin/arb -given cont pain and hx LHC in am HTN, improving, meds and adjustments as above, also on norvasc, as per cards for iproved bp control uptitrate arb as needed will require outpt fu for addl mangement DM- hold metformin, SSI and accu checks <Cha Harrington - Last Filed: 06/23/18 16:04> Hospitalist Progress Note - Encounter Date of Encounter: 06/23/18 Time of Encounter: 09:50 - Subjective Interval History: Patient seen and examined. No acute events overnight. Patient is resting comfortably in bed. Denies any more episodes of chest pain. Denies any compl aints at this time. Denies chest pain, shortness of breath, palpitations. Denies diaphoresis, nausea/vomiting. Denies swelling. Denies lightheadedness or dizziness. At 11:30AM, patient had another episode of chest pain. Received nitro x3 with resolution of symptoms. BP 113/64. EKG showed no acute changes. - Exam Vitals: Temp Pulse Resp BP Pulse Ox 98.3 F 62 18 177/68 97 06/23/18 07:36 06/23/18 07:36 06/23/18 07:36 06/23/18 07:36 06/23/18 09:20 Exam: General: Morbidly obese. Alert and oriented x3. No acute distress. Head: atraumatic, normocephalic. Eye: pupils equal and round. Sclera anicteric. EOMI. Mouth: oral mucosa moist. Normal oropharynx. Neck: supple. Trachea midline. Lungs: CTAB. No rhonchi, rales, or wheezing. No respiratory distress. No accessory muscle use. Cardiovascular: Normal S1 & S2. No rubs or gallops. No JVD. Pulse regular. Chest nontender. Abdomen: Normal bowel sounds. Nontender. No guarding, no rigidity, no rebound. Extremities: No joint swelling, edema, or clubbing. Nontender. Skin: warm, dry, and intact. - Assessment and Plan (1) Chest pain Current Visit: Yes Status: Acute Assessment and Plan: Presented with chest pain and elevated BP 180s/90s. History of CAD s/p 2 stents in 01/2017. One dose nitroglycerin improved CP and BP. Suspect angina. PE unlikely. Serial troponins negative. EKG showed no ischemic changes. Recent stress nuclear test was negative. Echo showed LVEF 60-65%. Normal. Imdur was started, per Cardiology. Yesterday, imdur increased to 60mg. Had 2 episodes of CP since nitrate trial. Since recurrent CP and high risk factors, will do C as inpatient. C planned for tomorrow. Nitroglycerin as needed for chest pain. Cardiology consulted and following. (2) CAD (coronary artery disease) Current Visit: No Status: Chronic Assessment and Plan: History of CAD s/p 2 stents in 01/2017. Continue aspirin, Plavix, atenolol, losartan, and statins. Cardiology consulted and following. (3) HTN (hypertension) Current Visit: No Status: Acute Assessment and Plan: History of HTN. On admission, BP elevated at 180s/90s. Imdur started, per Cardiology. BP improved. Continue monitoring blood pressure. Continue home medications. If BP remain elevated, increase ARB. Cardiology consulted and following. (4) Diabetes mellitus Current Visit: No Status: Chronic Assessment and Plan: Insulin sliding scale. (5) COPD (chronic obstructive pulmonary disease) Current Visit: No Status: Chronic Assessment and Plan: No respiratory distress, continue home medication. (6) BRIAN (obstructive sleep apnea) Current Visit: No Status: Chronic Assessment and Plan: CPAP as needed. (7) Morbid obesity with BMI of 40.0-44.9, adult Current Visit: No Status: Chronic Assessment and Plan: Weight control discussed with the patient. (8) DVT prophylaxis Current Visit: Yes Status: Acute Assessment and Plan: Heparin subcutaneous. - Time Spent with Patient Total time spent is greater than 50% in coordination of care (as documented) at patient's floor/unit and/or counseling patient: Internal Medicine: Result - Labs CBC & Chem 7: 06/23/18 09:48 06/23/18 09:48 Labs: Short CBC 06/23/18 Range/Units 09:48 WBC 7.9 (4.3-11.1) K/mcL Hgb 12.5 L (12.9-16.9) g/dL Hct 37.0 L (37.5-50.1) % Plt Count 158 (140-400) K/mcL Neutrophils # 5.5 (1.6-8.9) K/mcL - ABG Interpretation ABG results: PT/INR, D-dimer PT 12.0 Seconds (9.4-12.1) 06/22/18 03:00 - Impressions Impressions Echocardiogram Limited Views 06/21/18 14:18 Impressions: LVEF 60-65%. Definity echo contrast was used. Normal right ventricular structure and function. Aortic root measures 4.1 cm, normal for BSA. 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 transplanted heart: [place] heart Associated angina: with unstable angina Qualified Code(s): I25.110 - Atherosclerotic heart disease of [place] coronary artery with unstable angina pectoris (7) Chest pain Qualifiers: Chest pain type: unspecified Qualified Code(s): R07.9 - Chest pain, unspecified (8) COPD (chronic obstructive pulmonary disease) Qualifiers: COPD type: unspecified COPD Qualified Code(s): J44.9 - Chronic obstructive pulmonary disease, unspecified <Cha Harrington - Last Filed: 06/23/18 16:04> (1) Chest pain Qualifiers: Chest pain type: unspecified Qualified Code(s): R07.9 - Chest pain, unspecified (2) CAD (coronary artery disease) Qualifiers: Coronary Disease-Associated Artery/Lesion type: [place] artery [place] vs. transplanted heart: [place] heart Associated angina: with unstable angina Qualified Code(s): I25.110 - Atherosclerotic heart disease of [place] coronary artery with unstable angina pectoris (3) HTN (hypertension) Qualifiers: Hypertension type: essential hypertension Qualified Code(s): I10 - Essential (primary) hypertension (4) Diabetes mellitus Qualifiers: Diabetes mellitus type: type 2 Diabetes mellitus long-term insulin use: without long-term use Diabetes mellitus complication status: with unspecified complications Qualified Code(s): E11.8 - Type 2 diabetes mellitus with unspecified complications (5) COPD (chronic obstructive pulmonary disease) Qualifiers: COPD type: unspecified COPD Qualified Code(s): J44.9 - Chronic obstructive pulmonary disease, unspecified
[2018-06-23 10:16] LABS: BUN/Creatinine Ratio 13 (6-26); Blood Urea Nitrogen 14 mg/dL (8-23); Calcium 8.8 mg/dL (8.6-10.3); Carbon Dioxide 28 mEq/L (23-29); Chloride 104 mEq/L (98-107); Glucose 182 mg/dL (70-105); Osmolality,Calculated 291 (280-300); Potassium 4.1 mEq/L (3.5-5.1); Sodium 138 mEq/L (136-145); eGFR For Non-African Americans > 60 (> 60)
--- NOTE | 2018-06-23 10:42 | Cardiology Progress Note ---
Date of Encounter: 06/23/18 Time of Encounter: 09:30 Assessment and Plan (1) Chest pain Current Visit: Yes Status: Acute Per cardiology: -Presents with typical/atypical chest pain symptoms. -Troponin negative x4. No ischemic ECG changes noted. -Recent admission with negative nuclear stress test. -Hx of CAD s/p PCI--PCI to LAD January 2017, and high risk PCI to RCA at [facility] also in January 2017--existing mild non-obstructive CAD. -Blood pressure significantly elevated upon admission, will add nitrates for suspected angina and also to improve BP. -TTE with LVEF preserved, no segmental wall motion abnormalities noted. -Reports one episode of chest pain last night, denies current. -Imdur has been added. -PLan for LHC tomorrow. Risks versus benefits of LHC explained to patient who states understanding and agreeable to proceed. -Will continue to follow. Qualifiers: Chest pain type: unspecified Qualified Code(s): R07.9 - Chest pain, unspecified (2) CAD (coronary artery disease) Current Visit: Yes Status: Acute Per cardiology: -Plan as above. -Continue asa, statin, BB, plavix. Qualifiers: Coronary Disease-Associated Artery/Lesion type: [place] artery [place] vs. transplanted heart: [place] heart Associated angina: with stable angina Qualified Code(s): I25.118 - Atherosclerotic heart disease of [place] coronary artery with other forms of angina pectoris (3) HTN (hypertension) Current Visit: No Status: Acute Per cardiology: -Suboptimally controlled in the outpatient setting. -Recent admission, antihypertensives reportedly decreased d/t orthostatic hypotension. -BP uncontrolled upon admission, will add nitrates. -If remains elevated, may need to uptitrate ARB--defer to primary service. Qualifiers: Hypertension type: essential hypertension Qualified Code(s): I10 - Essential (primary) hypertension Discussion w patient/family: The assessment and plan as outlined above was discussed with the patient who expressed understanding and agreement. All questions were answered. Thank you for involving us in the care of your patient. Please call with any questions. Discussed and reviewed with Dr.John Jeter. Subjective Principal diagnosis: chest pain Interval history: Patient resting in bed comfortably. Reports had one episode of chest pain last night. Denies current chest pain. Denies shortness of breath. Objective Vital Signs, Last 4 Hours Temp Pulse Resp BP Pulse Ox 06/23/18 09:20 97 06/23/18 07:36 98.3 F 62 18 177/68 97 General: Conversant, No Apparent Distress HEENT: Atraumatic, Normocephaly, Mucus Membranes Moist Neck: No JVD, Normal carotid pulses Cardiac: Reg Rate and Rhythm, Normal S1 and S2, No Murmur Lungs: Normal Breath Sounds, No Wheeze, Rales, Rhonchi Neuro: Alert and responsive, No focal deficits noted Abdomen: Soft, Non-Tender Skin: No rashes noted on visualized skin Musculoskeletal: No Chest Wall Tenderness Extremities: No Clubbing, No Cyanosis, No Edema, Normal Pulses Results 06/23/18 09:48 06/23/18 09:48 Lab Results Active Medications Acetaminophen (Tylenol) 650 mg PO Q6HR PRN PRN Reason: Fever Stop: 12/21/18 21:56 Last Admin: 06/22/18 14:35 Dose: 650 mg Albuterol Sulfate (Albuterol Inhaler) 2 puff IH [id number] PRN PRN Reason: Shortness Of Breath/Wheezing Stop: 12/22/18 16:26 Amlodipine Besylate (Norvasc) 10 mg PO DAILY [facility] Stop: 12/22/18 09:01 Last Admin: 06/23/18 09:20 Dose: 10 mg Aspirin (Aspirin Ec) 81 mg PO DAILY [facility] Stop: 12/22/18 09:01 Last Admin: 06/23/18 09:20 Dose: 81 mg Atenolol (Tenormin) 50 mg PO DAILY [facility] Stop: 12/22/18 09:01 Last Admin: 06/23/18 09:20 Dose: 50 mg Atorvastatin Calcium (Lipitor) 80 mg PO QAM [facility] Stop: 12/22/18 09:01 Last Admin: 06/23/18 09:20 Dose: 80 mg Budesonide/Formoterol Fumarate (Symbicort) 2 puff IH BIDR PRN; Protocol PRN Reason: Shortness Of Breath Stop: 12/21/18 13:21 Clopidogrel Bisulfate (Plavix) 75 mg PO DAILY [facility] Stop: 12/22/18 09:01 Last Admin: 06/23/18 09:20 Dose: 75 mg Dextrose/Water (Dextrose 50% (Syg)) 25 ml IVP AD PRN PRN Reason: Hypoglycemia Stop: 12/21/18 13:54 Glucagon (Glucagen) 1 mg IM ONCE PRN PRN Reason: Hypoglycemia Stop: 12/21/18 13:54 Glucose (Gluctose) 15 gm PO ONCE PRN PRN Reason: Hypoglycemia Stop: 12/21/18 13:54 Glucose (Gluctose) 30 gm PO ONCE PRN PRN Reason: Hypoglycemia Stop: 12/21/18 13:54 Heparin Sodium (Porcine) (Heparin) 5,000 unit SQ Q12HCO [facility] Stop: 12/21/18 18:01 Last Admin: 06/23/18 05:13 Dose: 5,000 unit Dextrose (Dextrose 5%) 1,000 mls @ 100 mls/hr IVC .Q10H PRN PRN Reason: HYPOGLYCEMIA Stop: 12/21/18 13:54 Insulin Human Lispro (Humalog) 0 units SQ HS [facility]; Protocol Stop: 12/21/18 21:01 Last Admin: 06/22/18 20:53 Dose: Not Given Insulin Human Lispro (Humalog) 0 units SQ TIDAC [facility]; Protocol Stop: 12/21/18 16:31 Last Admin: 06/23/18 09:18 Dose: Not Given Isosorbide Mononitrate (Imdur) 60 mg PO DAILY [facility] Stop: 12/23/18 09:01 Last Admin: 06/23/18 09:20 Dose: 60 mg Losartan Potassium (Cozaar) 50 mg PO DAILY [facility] Stop: 12/22/18 09:01 Last Admin: 06/23/18 09:20 Dose: 50 mg Multivitamins/Calcium (Thera M Plus) 1 tab PO DAILY [facility] Stop: 12/22/18 09:01 Last Admin: 06/23/18 09:20 Dose: 1 tab Naloxone HCl (Narcan) 0.4 mg IVP Q2MIN PRN PRN Reason: SEE COMMENTS Stop: 12/21/18 12:34 Nitroglycerin (Nitroglycerin) 0.4 mg SL Q5MIN PRN PRN Reason: Chest Pain Stop: 12/21/18 13:21 Last Admin: 06/22/18 16:56 Dose: 0.4 mg Pharmacy Profile Note (Patient Taking Own Medication) 0 each PO DAILY [facility] Stop: 12/22/18 09:01 Last Admin: 06/23/18 09:21 Dose: Not Given Sertraline HCl (Zoloft) 100 mg PO DAILY [facility] Stop: 12/22/18 09:01 Last Admin: 06/23/18 09:20 Dose: 100 mg Tramadol HCl (Ultram) 50 mg PO Q6HR PRN PRN Reason: Moderate Pain Stop: 12/21/18 12:34 Last Admin: 06/21/18 18:48 Dose: 50 mg Laboratory Tests 06/23/18 06/23/18 09:48 09:48 Hgb 12.5 L Creatinine 1.06 - Imaging and Cardiology Chest Xray: report reviewed Echo: report reviewed Cardiac cath: report reviewed - EKG Interpretation EKG results cardiology: other (Telemetry reviewed with average HR previous 12 hours noted to be 59, SB. PVCs and PACS noted.) Consult Discharge Plan - Plan Referrals: Ronal Landon MD [Primary Care Provider] -
[2018-06-23] MEDS: Nitroglycerin 0.4 MG TAB.SUBL SL PRN ×2 (11:36→11:42)
[2018-06-23] MEDS: Acetaminophen 325 MG TABLET PO PRN (16:18)
[2018-06-24 04:38] LABS: Basophils % 0.3 %; Eosinophils # 0.1 K/mcL (0.0-0.6); Eosinophils % 1.9 %; Hematocrit 36.7 % (37.5-50.1); Immature Granulocytes % 0.6 % (0-4); Lymphocytes # 1.8 K/mcL (0.6-4.6); Lymphocytes % 26.1 %; Mean Corpuscular HGB Conc 32.7 g/dL (31.6-35.5); Mean Corpuscular Hemoglobin 29.7 pg (28.0-33.3); Mean Corpuscular Volume 90.8 fL (83.0-100.0); Mean Platelet Volume 10.4 fL (9.4-12.4); Monocytes # 0.7 K/mcL (0.0-1.3); Monocytes % 9.7 %; Neutrophils # 4.2 K/mcL (1.6-8.9); Platelet Count 151 K/mcL (140-400); Red Blood Count 4.04 M/mcL (4.19-5.50); Segmented Neutrophils % 61.4 %
[2018-06-24 04:56] LABS: BUN/Creatinine Ratio 15 (6-26); Blood Urea Nitrogen 15 mg/dL (8-23); Calcium 9.2 mg/dL (8.6-10.3); Carbon Dioxide 27 mEq/L (23-29); Chloride 107 mEq/L (98-107); Glucose 142 mg/dL (70-105); Magnesium 2.1 mg/dL (1.6-2.6); Osmolality,Calculated 295 (280-300); Potassium 3.8 mEq/L (3.5-5.1); Sodium 141 mEq/L (136-145); eGFR For Non-African Americans > 60 (> 60)
[2018-06-24] MEDS: *HR* Heparin 5,000 UNIT/ML VIAL SQ SCH ×2 (05:41→18:01)
--- NOTE | 2018-06-24 07:41 | Internal Med Progress Note ---
Hospitalist Progress Note - Exam Vitals: Temp Pulse Resp BP Pulse Ox 98.3 F 62 16 157/74 97 06/24/18 07:32 06/24/18 07:32 06/24/18 07:32 06/24/18 07:32 06/24/18 07:32 - Time Spent with Patient Total time spent is greater than 50% in coordination of care (as documented) at patient's floor/unit and/or counseling patient: Internal Medicine: Result - Labs CBC & Chem 7: 06/24/18 03:57 06/24/18 03:57 Labs: Short CBC 06/23/18 06/24/18 Range/Units 09:48 03:57 WBC 7.9 6.8 (4.3-11.1) K/mcL Hgb 12.5 L 12.0 L (12.9-16.9) g/dL Hct 37.0 L 36.7 L (37.5-50.1) % Plt Count 158 151 (140-400) K/mcL Neutrophils # 5.5 4.2 (1.6-8.9) K/mcL BMP 06/23/18 06/24/18 09:48 03:57 Sodium 138 141 Potassium 4.1 3.8 Chloride 104 107 Carbon Dioxide 28 27 BUN 14 15 Creatinine 1.06 0.98 Glucose 182 H 142 H Calcium 8.8 9.2 - ABG Interpretation ABG results: PT/INR, D-dimer PT 12.0 Seconds (9.4-12.1) 06/22/18 03:00 Consult Discharge Plan - Plan Referrals: Ronal Landon MD [Primary Care Provider] -
--- NOTE | 2018-06-24 08:19 | Internal Med Progress Note ---
Addendum entered and electronically signed by NAYANA Hammer 06/28/18 15:03: Addendum entered and electronically signed by Gloria Loving 06/24/18 14:41: Pt is a 58M presenting with continuing chest pain after admission last week was unrevealing for cause after negative stress test. Pt was not having chest pain during exam, reported chest pain previous day which required 3 doses of NG for relief. Pt denies any associated symptoms of N/V/Diaphoresis. Cardiology plans for [facility] today after he failed to respond to medical management of chest pain. I independently examined and evaluated the patient with the medical student and I agree with her assessment with modifications as below: None. Original Note: <Mackenzie Allred - Last Filed: 06/24/18 14:01> Hospitalist Progress Note - Encounter Date of Encounter: 06/24/18 Time of Encounter: 08:46 - Subjective Interval History: Mr. Zuniga is a 58 y.o. male who presented to the ED with complaint of chest pain and SOB on 06/21/18. He had been admitted 8 days prior for similar symptoms and had a negative stress test. On 06/21, he received a chest x-ray, an EKG, and an echocardiogram. The chest x-ray was negative and showed no evidence of cardiopulmonary disease. The EKG showed non-specific ST-T changes, and the echocardiogram was normal. Troponin was negative. Symptoms resolved with nitro. He had a repeat EKG done on 06/22 which showed sinus bradycardia and an inferior myocardial infarction which was noted to probably be old. Negative troponins x4. Patient's Hb has dropped from 13.9 on 06/21 to 12.0 on 06/24. Hct dropped from 41.9 to 36.7. Glucose has fluctuated over the course of his stay and remains elevated at 142 as of 3:57 on 06/24. Over the course of his stay, he has experienced intermittent chest pain and pressure that radiates to either the left or right shoulder. At 11:30 on 06/23, patient reported 4/10 chest pain, was given nitro 3X until pain down to 1/10. Patient experienced no chest pain or dizziness throughout the night. Patient is on O2 via nasal canula in case he is having a coronary event; he does not normally use O2 at home. Left heart catheterization is scheduled for 14:30 on 06/24. PMHx: CAD (stent placement x3 January 2017), HTN, hyperlipidemia, DM, COPD ROS: General - denies fever, chills, dizziness, pain CV - denies chest pain currently, edema Resp - denies dyspnea, cough Abd - denies vomiting, nausea, diarrhea. States that he has been eating and having bowel movements/passing gas. - Exam Vitals: Temp Pulse Resp BP Pulse Ox 98.3 F 62 16 157/74 97 06/24/18 07:32 06/24/18 07:32 06/24/18 07:32 06/24/18 07:32 06/24/18 07:32 Exam: General: Patient sitting comfortably in bed. Alert, oriented X3. In no acute distress. Morbidly obese. Head: atraumatic, normocephalic Eyes: pupils equal and round, sclera white, EOMI Resp: CTA bilaterally. No wheezes, rhonchi, or rales. No respiratory distress. CV: RRR. No murmurs, gallops, or rubs. Normal S1 and S2. Abd: Normal BSx4. Non-tender. No guarding. Extremities: No edema, swelling, or clubbing. Skin: Good skin turgor. Dry, no open wounds. - Assessment and Plan (1) Chest pain Current Visit: Yes Status: Acute Assessment and Plan: Scheduled for left heart catheterization today. Continue taking nitro as chest pain arises. Repeat EKG. (2) CAD (coronary artery disease) Current Visit: No Status: Chronic Assessment and Plan: Receiving left heart catheterization today to check for stenosis of coronary arteries. (3) HTN (hypertension) Current Visit: Yes Status: Acute Assessment and Plan: Continue monitoring BP. Continue on current regimen of Norvasc (10 mg daily), atenolol (50 mg daily), and losartan (50 mg daily). (4) Diabetes mellitus Current Visit: Yes Status: Chronic Assessment and Plan: Continue corrective low dose regimen of lispro for elevated blood glucose. (5) COPD (chronic obstructive pulmonary disease) Current Visit: No Status: Chronic Assessment and Plan: No respiratory distress. Continue on home medications for treatment. (6) Morbid obesity with BMI of 40.0-44.9, adult Current Visit: No Status: Chronic Assessment and Plan: Morbidly obese. Recommend creating a plan for weight loss. (7) DVT prophylaxis Current Visit: Yes Status: Acute (8) BRIAN (obstructive sleep apnea) Current Visit: No Status: Chronic Assessment and Plan: Use CPAP as needed DVT Prophylaxis: Receiving heparin - 5000 units SQ Q12h - Time Spent with Patient Total time spent is greater than 50% in coordination of care (as documented) at patient's floor/unit and/or counseling patient: less than 15 minutes Internal Medicine: Result - Labs CBC & Chem 7: 06/24/18 03:57 06/24/18 03:57 Labs: Short CBC 06/23/18 06/24/18 Range/Units 09:48 03:57 WBC 7.9 6.8 (4.3-11.1) K/mcL Hgb 12.5 L 12.0 L (12.9-16.9) g/dL Hct 37.0 L 36.7 L (37.5-50.1) % Plt Count 158 151 (140-400) K/mcL Neutrophils # 5.5 4.2 (1.6-8.9) K/mcL BMP 06/23/18 06/24/18 09:48 03:57 Sodium 138 141 Potassium 4.1 3.8 Chloride 104 107 Carbon Dioxide 28 27 BUN 14 15 Creatinine 1.06 0.98 Glucose 182 H 142 H Calcium 8.8 9.2 - ABG Interpretation ABG results: PT/INR, D-dimer PT 12.0 Seconds (9.4-12.1) 06/22/18 03:00 Consult Discharge Plan - Plan Referrals: Ronal Landon MD [Primary Care Provider] - <Carlyn Lakhani - Last Filed: 06/24/18 16:08> Hospitalist Progress Note - Exam Vitals: Temp Pulse Resp BP Pulse Ox 97.7 F 54 16 142/58 96 06/24/18 11:59 06/24/18 11:59 06/24/18 11:59 06/24/18 11:59 06/24/18 11:59 - Assessment and Plan (1) HTN (hypertension) Current Visit: Yes Status: Acute (2) BRIAN (obstructive sleep apnea) Current Visit: No Status: Chronic (3) Diabetes mellitus Current Visit: Yes Status: Chronic (4) Morbid obesity with BMI of 40.0-44.9, adult Current Visit: No Status: Chronic (5) CAD (coronary artery disease) Current Visit: No Status: Chronic (6) DVT prophylaxis Current Visit: Yes Status: Acute (7) Chest pain Current Visit: Yes Status: Acute (8) COPD (chronic obstructive pulmonary disease) Current Visit: No Status: Chronic - Time Spent with Patient Total time spent is greater than 50% in coordination of care (as documented) at patient's floor/unit and/or counseling patient: Internal Medicine: Result - Labs CBC & Chem 7: 06/24/18 03:57 06/24/18 03:57 Labs: Short CBC 06/24/18 Range/Units 03:57 WBC 6.8 (4.3-11.1) K/mcL Hgb 12.0 L (12.9-16.9) g/dL Hct 36.7 L (37.5-50.1) % Plt Count 151 (140-400) K/mcL Neutrophils # 4.2 (1.6-8.9) K/mcL BMP 06/24/18 03:57 Sodium 141 Potassium 3.8 Chloride 107 Carbon Dioxide 27 BUN 15 Creatinine 0.98 Glucose 142 H Calcium 9.2 - ABG Interpretation ABG results: PT/INR, D-dimer PT 12.0 Seconds (9.4-12.1) 06/22/18 03:00 - Attending Attestation I examined this patient and my medical decision-making was reviewed with the Resident Physician Dr Loving. I agree with the documented findings, disposition and treatment plan as described except to the extent set forth below/addl details below. The history, physical exam, and medical decision making was performed by the medical student either while I was physically present and actively involved or I personally re-performed the exam and medical decision making. I have verified the accuracy of the medical student's documentation with regards to the history, physical exam findings, and medical decision making. (medical student Long) Mr Zuniga has a hx of CAD s/p multiple PCIs and recurrent evals for chest pain. He presented with chest pain and pressure, improved with nitro, HTN with BPs elevated above goal into 180s/90s. He is being followed by cardiology for assistance in treatment and work up with plan for [facility] today. Awake, no chest pain this morning or overnight, denies pressure,sob, diaphroesis n/v. at bedside. Awaiting [facility] gen- alert, awake,appears stated age, obese cv- reg rate and rhythm, normal s1,s2, no murmurs appreciated, no jvd, no le pitting edema lungs- ctabl, no wheezing, rhonchi or crackles, normal resp effort on o2 nc neuro- AAOx3 Chest Pain in setting of CAD, ruled out ACS, may be ischemic chest pain given history, unlikely PE given hpi and VS, CXR neg and no indication of pulmonary disease as cause, symptoms not consistent with aortic dissection as unchanged from his priors (echo aortic root 4.1 cm) CAD s/p PCI to LAD 01/17 and high risk PCI to RCA at [facility] 01/17 Known existing mild non-obstructive CAD Recent admit for same with neg stress test echo 06/21/18 EF 60-65%, no wall motion abnormalities trops neg ekg with twi in V leads is unchanged from priors and personally reviewed -cards following and suspect angina, perhaps related to bps above goal -imdur added and being titrated, home meds cont including asa/plavix/bb/statin/arb, o2 AR -[facility] 06/24 pending HTN, improving, meds and adjustments as above, also on norvasc, as per cards for improved bp control uptitrate arb as needed will require outpt fu for addl management DM- hold metformin and needs held post dye exposure from cath, SSI and accu checks <Mackenzie Allred - Last Filed: 06/24/18 14:01> (1) Chest pain Qualifiers: Chest pain type: unspecified Qualified Code(s): R07.9 - Chest pain, unspecified (2) CAD (coronary artery disease) Qualifiers: Coronary Disease-Associated Artery/Lesion type: [place] artery [place] vs. transplanted heart: [place] heart Associated angina: with unstable angina Qualified Code(s): I25.110 - Atherosclerotic heart disease of [place] coronary artery with unstable angina pectoris (3) HTN (hypertension) Qualifiers: Hypertension type: essential hypertension Qualified Code(s): I10 - Essential (primary) hypertension (4) Diabetes mellitus Qualifiers: Diabetes mellitus type: type 2 Diabetes mellitus residential insulin use: without termite exterminator helper use Diabetes mellitus complication status: with unspecified complications Qualified Code(s): E11.8 - Type 2 diabetes mellitus with unspecified complications (5) COPD (chronic obstructive pulmonary disease) Qualifiers: COPD type: unspecified COPD Qualified Code(s): J44.9 - Chronic obstructive pulmonary disease, unspecified <Carlyn Lakhani - Last Filed: 06/24/18 16:08> (1) HTN (hypertension) Qualifiers: Hypertension type: essential hypertension Qualified Code(s): I10 - Essential (primary) hypertension (3) Diabetes mellitus Qualifiers: Diabetes mellitus type: type 2 Diabetes mellitus termite exterminator helper insulin use: without termite exterminator helper use Diabetes mellitus complication status: with unspecified complications Qualified Code(s): E11.8 - Type 2 diabetes mellitus with unspecified complications (5) CAD (coronary artery disease) Qualifiers: Coronary Disease-Associated Artery/Lesion type: [place] artery [place] vs. transplanted heart: [place] heart Associated angina: with unstable angina Qualified Code(s): I25.110 - Atherosclerotic heart disease of [place] coronary artery with unstable angina pectoris (7) Chest pain Qualifiers: Chest pain type: unspecified Qualified Code(s): R07.9 - Chest pain, unspecified (8) COPD (chronic obstructive pulmonary disease) Qualifiers: COPD type: unspecified COPD Qualified Code(s): J44.9 - Chronic obstructive pulmonary disease, unspecified
[2018-06-24] MEDS: Insulin LISPRO 300 UNITS/3 ML VIAL SQ SCH ×4 (08:20→23:52)
--- NOTE | 2018-06-24 08:32 | Pre-Sedation Evaluation ---
Pre-sedation evaluation - Pre-sedation checklist Date of procedure: 06/24/18 Procedure: [facility] Recent Vitals: Last Vital Signs Temp 98.3 F 06/24/18 07:32 Pulse 62 06/24/18 07:32 Resp 16 06/24/18 07:32 BP 157/74 06/24/18 07:32 Pulse Ox 97 06/24/18 07:32 H&P (including ROS) documented in medical record: Yes Previous reaction to sedatives/anesthetics: No Dietary Status: NPO after Midnight Airway Assessment: Micrognathia (under-bite, receding chin) absent Dentition: No loose teeth or bridges ASA Classification *see protocol: CLASS II-Mild systemic disease Plan of Care: Pt appropriate candidate for procedure/moderate/conscious sedation, Risks/benefits of procedure/sedation discussed w/ patient/family Cardiac Registry (Cardio Only) - Functional Capacity Functional Capacity: >=4 METS with symptoms
[2018-06-24] MEDS: Aspirin Enteric Coated 81 MG Tablet PO SCH (08:59)
[2018-06-24] MEDS: Isosorbide MONOnitrate (24 HR) 60 MG TAB.ER.24H PO SCH (08:59)
[2018-06-24] MEDS: Multivit/Ca/Min/Fe/FA 1 TAB TABLET PO SCH (09:00)
[2018-06-24] MEDS: amLODIPine 5 MG TABLET PO SCH (09:00)
--- NOTE | 2018-06-24 09:51 | Event Note ---
Date of Encounter: 06/24/18 Time of Encounter: 09:50 - Cardiology Event Note Plan for [facility] today for chest pain, recent negative stress test. Chest pain recurrent despite increase in anti-anginals. Risks versus benefits of [facility] explained to patient, states understanding and agreeable to proceed. Further recommendations pending [facility].
[2018-06-24] MEDS: traMADol 50 MG TABLET PO PRN (15:33)
[2018-06-24] MEDS ORDERED: Verapamil 5 MG/2 ML VIAL ONE (15:47)
[2018-06-24] MEDS ORDERED: ISOVUE-370 200 ML INFUS..BTL IV ONE (15:48)
[2018-06-24] MEDS ORDERED: Heparin 1,000 UNITS/500 mL 500 ML ONE (15:48)
[2018-06-24] MEDS ORDERED: Nitroglycerin 1,000 MCG/10 ML VIAL IV ONE (15:48)
[2018-06-24] MEDS ORDERED: 0.9 % Sodium Chloride 1,000 ML ONE ×2 (15:48→16:01)
[2018-06-24] MEDS ORDERED: *HR* Heparin 10,000 UNIT/10 ML VIAL ONE (15:48)
[2018-06-24] MEDS ORDERED: *HR* Midazolam HCl 2 MG/2 ML VIAL ONE (15:59)
[2018-06-24] MEDS ORDERED: *HR* FentaNYL (PF) 100 MCG/2 ML VIAL ONE (15:59)
--- NOTE | 2018-06-24 16:48 | Invasive Diagnostic Lab Proc ---
Name: Zheng Zuniga Date of Study: 06/24/2018 Date: 1960 Ht: 66.0in Medical Record#: [id number] Age: 58 Wt: 321.87lb Gender: Male BSA: 2.45 Order #: [id number] BMI: 51.98 Physicians Procedure Physician: Corey Araiza MD, [facility] Referring MD: Referring MD: Staff Name Position Time In Misty Her RT Scrub 03:50 PM Ju Tsang RN Policy Specialist 03:50 PM Francis Conte RN Monitor 03:50 PM Sherry Navas RT (R) Monitor 04:10 PM Indications Indication Unstable Angina Procedures Performed Procedure L HRT ARTERY/VENTRICLE ANGIO Pre-Procedure Checklist Informed consent is complete signed and on chart. H&P is on chart. ID band is on and ID verified with patient. Patient NPO for procedure The procedure was described for the patient and questions were answered. Blood Pressure: 165/95 ECG is on chart. Rhythm: NSR Plan of Care Patient will tolerate the procedure without complications. Adequate level of comfort will be maintained. Hemodynamics will remain stable Patient will recover from procedure without complications. Respiratory function will be maintained. Cardiac rhythm will remain stable. Patient temperature will be maintained. Patient and/or family have verbalized understanding of the procedure. Patient Education Intravenous Access Time IV Size Location DC'd Fluid/Drip Rate Units RN 18g 1 1/4" Patent On Arrival Rt Antecubital 0.9NaCl 50 ml/hr Ju Tsang RN Allergies No Known Allergies Vital Signs Time BP (mmHg) HR (bpm) O2 Sat. RR (bpm) LOC 04:11 PM / % 5 = Fully awake and oriented or at pre-proc level 03:58 PM 156 / 95 55 94 % 12 04:02 PM 152 / 79 50 96 % 16 04:07 PM 147 / 81 52 97 % 13 04:12 PM 146 / 81 53 97 % 14 04:17 PM 120 / 74 58 92 % 19 04:22 PM 134 / 75 55 95 % 17 04:27 PM 138 / 73 58 95 % 29 04:32 PM 136 / 77 55 95 % 19 Procedural Medications Time Medication Dose Units Method Given By 03:51 PM Oxygen 2 L/min nasal cannula Ju Tsang RN 03:57 PM Oxygen 2 L/min nasal cannula Ju Tsang RN 04:04 PM Versed 2 mg Intravenous Ju Tsang RN 04:04 PM Fentanyl 50 mcg Intravenous Ju Tsang RN 04:12 PM Lidocaine 2% 0.5 ml Subcutaneous Corey Araiza MD, [facility] 04:12 PM Heparin 4000 units Nitroglycerin 200 mcg Verapamil 2.5 mg Intraarterial Corey Araiza MD, [facility] 04:17 PM Lidocaine 2% 19 ml Subcutaneous Corey Araiza MD, [facility] ASA Classification: CLASS II- Mild systemic disease (i.e. well-controlled diabetes, hypertension, asthma, cigarette smoking) Marcia Score Preprocedure Postprocedure Activity 2- Moves 4 extremities sustained head lift Activity 2- Moves 4 extremities sustained head lift Circulation 2- SBP +/= 20 points of pre-anesthetic level Circulation 2- SBP +/= 20 points of pre-anesthetic level Consciousness 2- Awake and alert oriented x 3 Consciousness 2- Awake and alert oriented x 3 O2 Saturation 2- Able to maintain O2 satruation of 92% on room air O2 Saturation 2- Able to maintain O2 satruation of 92% on room air Respiratory 2- Able to deep breathe and cough well Respiratory 2- Able to deep breathe and cough well Total Score 10 Total Score 10 Contrast Agent: Isovue Diagnostic Contrast: 77 ml Total Contrast: 77 ml Fluoro Dose: 74 mGy Procedure Log Time Note Enter By 03:50 PM Pt arrived to soap slabber 1 at 15:50 [email or web address] 03:50 PM Misty Her RT Position: Scrub Time in: 15:50 [email or web address] 03:50 PM Ju Tsang RN Position: Policy Specialist Time in: 15:50 [email or web address] 03:50 PM Francis Conte RN Position: Monitor Time in: 15:50 [email or web address] 03:50 PM Patient charges- Angio tray pack, Navilyst 3mm J, Pulse Oximetry and ACIST tubing and transducer [email or web address] 03:51 PM Case Delayed No [email or web address] 03:51 PM Physician arrived 15:51 [email or web address] 03:51 PM Reji and mu completed [email or web address] 03:51 PM Sign in performed according to hospital policy. Informed consent was obtained. [email or web address] 03:51 PM Procedure start 15:51 [email or web address] 03:51 PM Time: 15:51 Oxygen on at 2 L/min per nasal cannula by Ju Tsang RN [email or web address] 03:52 PM CathStat 03:56 PM Recorded ECG: HR=66 Condition=Condition 1 03:56 PM Vitals capture started with the following parameters, Patient=Adult, Interval=5 min, Initial Dbqpetfv=657 mmHg, Deflation Rate=3 mmHg, Cuff placed on Right Arm 03:56 PM Recorded ECG: HR=55 Condition=Condition 1 03:58 PM HR=55 bpm, ZZUA=253/95 mmhg, SpO2=94.0 %, Resp=12 B/min 04:02 PM HR=50 bpm, NWCL=830/79 mmhg, SpO2=96.0 %, Resp=16 B/min 04:04 PM Time: 16:04 Versed 2 mg Intravenous Given by Ju Tsang RN tsites 04:04 PM Time: 16:04 Fentanyl 50 mcg Intravenous Given by Ju Tsang RN tsites 04:07 PM HR=52 bpm, ANAL=998/81 mmhg, SpO2=97.0 %, Resp=13 B/min 04:10 PM Sites, Sherry RT (R) Position: Monitor Time in: 16:10 tsites 04:11 PM Hair removed from procedure site in holding area using clippers. Right wrist and right groin prepped with Chloraprep by Yosef, Sherry RT (R), then patient was draped. Skin intact. tsites 04:11 PM Time: 16:11 Patient comfortable and pain free: Yes tsites 04:11 PM Time: 16:11LOC: 5 = Fully awake and oriented or at pre-proc level tsites 04:11 PM Clinical Presentation: Stable angina tsites 04:11 PM Time out was performed according to hospital policy. Conscious sedation and anesthesia was achieved (see medication log with in this report above) tsites 04:12 PM Time: 16:12 0.5 ml Lidocaine 2% to right radial Subcutaneous Given by Corey Araiza MD, [facility] tsites 04:12 PM HR=53 bpm, KOMB=150/81 mmhg, SpO2=97 %, Resp=14 B/min 04:12 PM Access obtained by percutaneous puncture. 6Fr 10cm Terumo Glidesheath sheath placed in right Radial artery. [id number] tsites 04:12 PM Time: 16:12 Patient given 4,000 units Heparin, 200 mcg Nitroglycerin, and 2.5 mg Verapamil Intraarterial by oCrey Araiza MD, [facility]. This is given to reduce risk of vessel spasm and thrombosis. tsites 04:12 PM 5Fr TIG catheter inserted over the wire DN tsites 04:12 PM 0.035 260cm Navilyst 3mmJ wire [id number] tsites 04:14 PM Wire removed tsites 04:15 PM 0.035 150cm VSI Luis Enrique-Torque wire [id number] tsites 04:16 PM tortous subclavian tsites 04:16 PM Catheter removed tsites 04:16 PM Wire removed tsites 04:16 PM unable to advance catheter tsites 04:17 PM HR=58 bpm, JJTK=447/74 mmhg, SpO2=92.0 %, Resp=19 B/min 04:18 PM Time: 16:17 19 ml Lidocaine 2% to right groin Subcutaneous Given by Corey Araiza MD, [facility] tsites 04:22 PM Access obtained by percutaneous puncture. 5Fr 10cm Terumo [place] sheath placed in right Femoral artery. [id number] tsites 04:22 PM 5Fr FR 4 catheter inserted over the wire [facility] tsites 04:22 PM 0.035 145cm Navilyst 3mmJ wire [id number] tsites 04:22 PM HR=55 bpm, MOIH=376/75 mmhg, SpO2=95 %, Resp=17 B/min 04:23 PM LCA angiography performed in multiple views. tsites 04:23 PM Recorded Pressure: Ao, HR=55, Condition=Condition 1 (Aorta) Ao 111/67/87 04:24 PM Lesion found in Proximal LMCA. Pre Stenosis: 30 Pre CHE Flow: tsites 04:25 PM wire reinserted catheter removed tsites 04:25 PM 5Fr FR 4 catheter inserted over the wire [facility] tsites 04:25 PM RCA angiography performed in multiple views. tsites 04:26 PM Recorded Pressure: Ao, HR=58, Condition=Condition 1 (Aorta) Ao 134/10/73 04:26 PM Lesion found in Proximal LAD. Pre Stenosis: 75 Pre CHE Flow: tsites 04:27 PM Lesion found in Mid LAD. Pre Stenosis: 50 Pre CHE Flow: tsites 04:27 PM Lesion found in Proximal Circumflex. Pre Stenosis: 70 Pre CHE Flow: tsites 04:27 PM Left Main Coronary Artery with 30% stenosis tsites 04:27 PM HR=58 bpm, ZTJN=125/73 mmhg, SpO2=95 %, Resp=29 B/min 04:27 PM Proximal Left Anterior Descending Coronary Artery with 75% stenosis. If graft is supplying this territory, 0 % stenosis. tsites 04:27 PM Mid/Distal Left Anterior Descending Coronary Artery and diagonal branches with 50% stenosis. If graft is supplying this area, 0 % stenosis tsites 04:27 PM Circumflex, Obtuse Marginal, Left Posterior Descending, and Left Posterolateral Coronary Arteries with 70 % stenosis. If graft is supplying this area, 0 % stenosis tsites 04:27 PM Right Coronary, Right Posterior Descending Arteries with Right Posterolateral and Acute Marginal branches with 70 % stenosis. If graft is supplying this area, 0 % stenosis tsites 04:27 PM Lesion found in Proximal RCA. Pre Stenosis: 70 Pre CHE Flow: tsites 04:27 PM Lesion found in Distal RCA. Pre Stenosis: 50 Pre CHE Flow: tsites 04:28 PM Coronary Dominance: right tsites 04:28 PM wire reinserted catheter removed tsites 04:28 PM 5Fr Pigtail catheter inserted over the wire [facility] tsites 04:28 PM Catheter crossed the aortic valve and was selectively placed in the left ventricle. Pressures recorded on pullback for left heart catheterization. tsites 04:29 PM Bolus angiogram of left Ventricle complete: 10 ml/sec for a total of 30 mls tsites 04:29 PM Recorded Pressure: LV, HR=57, Condition=Condition 1 (Left Ventricle) LV 138/-10/10 04:30 PM Recorded Pressure: LV, Ao, HR=56, Condition=Condition 1 (Left Ventricle) LV 139/-3/10, (Aorta) Ao 145/73/100 04:30 PM Catheter removed tsites 04:30 PM Wire removed tsites 04:30 PM Bolus angiogram of right Femoral complete: 2 ml/sec for a total of 4 mls tsites 04:31 PM Procedure completed at 16:31 06/24/2018 tsites 04:31 PM Did you address CHE flow and Dominance? Yes tsites 04:32 PM Sign out completed: Radiation Dose 730 mGy, 73.56 cGy/cm2 Fluoro Time: 3.7 Isovue 370 - 200ml contrast 76.6 ml given by Corey Araiza MD, [facility]. Complications: None. The patient was discharged out of the director of cath lab in stable condition. Cardiac Rehab Consult needed: NoConfirmed administered medications: Yes tsites 04:32 PM Cardiothoracic surgeon consulted by physician tsites 04:32 PM HR=55 bpm, OSZA=736/77 mmhg, SpO2=95.0 %, Resp=19 B/min 04:32 PM Isovue 370 - 200ml,1 Bottle(s) used. tsites 04:32 PM Arterial sheath pulled, Mynx closure device used and was Successful S/N. tsites 04:33 PM Estimated Blood Loss: minimal tsites 04:33 PM Post ECG NSR tsites 04:33 PM Post Blood Pressure 136/77 tsites 04:33 PM 16:33 Post Pulses Bilateral DP & PT 1+ tsites 04:33 PM Information taught Cardiac Cath tsites 04:33 PM Education needs Procedure, Plan of Care, and Responsibilities of Patient in Care tsites 04:33 PM Learning barriers :None tsites 04:33 PM Education Methods Verbal tsites 04:33 PM Education evaluation Able to repeat information tsites 04:33 PM Site status No bleeding/hematoma - Rt Groin as reported by Misty Her RT at 16:33 tsites 04:33 PM Site status No bleeding/hematoma - Rt Wrist as reported by Misty Her RT at 16:33 tsites 04:34 PM Arterial sheath pulled, Vasc Band closure device used and was Successful S/N. tsites 04:34 PM 9 ml air in Vasc Band. tsites 04:34 PM Site status No bleeding/hematoma - Rt Wrist as reported by Misty Her RT at 16:34 tsites 04:34 PM Opsite applied tsites 04:36 PM Delay to floor No tsites 04:36 PM Patient out of room: 16:36 tsites 04:36 PM Family placed in consult room. tsites 04:37 PM Report given to eloy LINN Pt taken to 3B Room #37. 16:36 tsites Complications Complication None Hemodynamics Pressures Site Systolic/A Wave Diastolic/V Wave Mean AO 111 67 87 AO 134 10 73 LV 138 -10 10 LV 139 -3 10 AO 145 73 100 Post Procedure Information Blood Pressure: 136/77 mmHg Rhythm: NSR Post procedural instructions were given Surgery consult for CABG Closure Device Time Device Success/Fail 06/24/2018 4:38:00 PM MynxGrip Successful 06/24/2018 4:38:00 PM Mechanical Compression Successful Site Checks Time Location Status Staff Sheath In? Note 04:33 PM Rt Groin No bleeding/hematoma Misty Her RT 04:33 PM Rt Wrist No bleeding/hematoma Misty Her RT 04:34 PM Rt Wrist No bleeding/hematoma Misty Her RT Pulses Time Site Pre-Procedure Post-Procedure Note Bilateral DP & PT 1+ 4:33:00 PM Bilateral DP & PT 1+ Updated by Sherry Sites, RT (R) on 06/24/2018 4:43:39 PM Sherry Sites, RT electronically signed on 06/24/2018 4:44:04 PM with status of Final
[2018-06-25] MEDS: *HR* Heparin 5,000 UNIT/ML VIAL SQ SCH ×2 (05:30→17:26)
[2018-06-25] MEDS: Multivit/Ca/Min/Fe/FA 1 TAB TABLET PO SCH (09:10)
[2018-06-25] MEDS: Aspirin Enteric Coated 81 MG Tablet PO SCH (09:10)
[2018-06-25] MEDS: Insulin LISPRO 300 UNITS/3 ML VIAL SQ SCH ×4 (09:11→20:18)
[2018-06-25] MEDS: amLODIPine 5 MG TABLET PO SCH (09:11)
[2018-06-25] MEDS: Isosorbide MONOnitrate (24 HR) 60 MG TAB.ER.24H PO SCH (09:11)
[2018-06-25] MEDS ORDERED: Isovue-370 500 ML INFUS..BTL IV ONE (10:19)
--- NOTE | 2018-06-25 11:22 | Cardiothoracic Consult Note ---
Date of Encounter: 06/25/18 Time of Encounter: 09:52 Assessment and Plan (1) CAD (coronary artery disease) Current Visit: No Status: Chronic The assessment and plan as outlined above was discussed with the patient and/or family members who expressed understanding and agreement. All questions were answered. The patient has triple-vessel disease with preserved ventricular function. I discussed possible coronary artery bypass grafting with him. He seems to favor this route, although he wants to discuss triple-vessel ballooning and stents with cardiology. I will stop his Plavix. I will check a CT scan of the chest and abdomen to rule out aneurysms as he does have a strong positive family history of aneurysms. In addition, echocardiogram revealed a 4.1 cm ascending aorta. Qualifiers: Coronary Disease-Associated Artery/Lesion type: [place] artery [place] vs. transplanted heart: [place] heart Associated angina: with unstable angina Qualified Code(s): I25.110 - Atherosclerotic heart disease of [place] coronary artery with unstable angina pectoris - History of Present Illness History of present illness: Mr. Zuniga is a 58 year old male The patient is a 58-year-old gentleman who has had stents in the past. He does have a history of hypertension and hyperlipidemia. He has a history of diabetes on oral agents. He carries a diagnosis of COPD, but is not on oxygen. He presented with chest pain. He had a negative troponin. Echocardiogram revealed an ejection fraction of 65%. His aortic root was dilated at 4.1 cm. The patient had a stress test that was negative for ischemia. Cardiac catheterization revealed an ejection fraction of 55%. He had a 70-80% LAD lesion. A 70% circumflex lesion. A 70% right coronary artery lesion. Medications include daily Plavix. Social history. He lives with his in [place]. He does not smoke. He rarely drinks alcohol. 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 Family history is positive, including his father who of heart disease and an abdominal aortic aneurysm. Past Med Surg Social Fam HX - Past Medical History Medical history: arthritis, asthma, coronary artery disease, diabetes, GERD, hyperlipidemia, hypertension, other Additional medical history: sleep apnea Psychiatric history: depression - Past Surgical History Surgical History: cholecystectomy Additional surgical history: Cardiac stents x3 - Social History Smoking Status: Never smoker Smokeless Tobacco Status: No Alcohol use: none Drug use: none - Family History Father Living Status: Age at : 80 Cause of : [place] Hx Family Cardiac Disorders: Yes (extensive) Mother Living Status: Age at : 78 Cause of : sepsis Medications and Allergies Albuterol Sulfate [Ventolin Hfa] 2 puff IH QID 10/29/15 [History] Amlodipine Besylate 10 mg PO DAILY 10/29/15 [History] Budesonide/Formoterol 160/4.5 [Symbicort 160/4.5] 2 puff IH BIDR PRN 10/29/15 [History] [place]-3 Fatty Acids [Fish Oil] 600 mg PO DAILY 10/29/15 [History] Sertraline [Zoloft] 100 mg PO DAILY 10/29/15 [History] Clopidogrel [Plavix] 75 mg PO DAILY #30 tablet 01/20/17 [Rx] Nitroglycerin 0.4 mg SL Q5MIN PRN #10 tab.subl 01/20/17 [Rx] Metformin HCl 1,000 mg PO BID 06/14/18 [History] Multivitamin with Minerals [One-A-Day Maximum Formula] 1 tab PO DAILY 06/14/18 [History] Atenolol [Tenormin] 50 mg PO DAILY #30 tablet 06/15/18 [Rx] Losartan Potassium [Cozaar] 50 mg PO DAILY #30 tab 06/15/18 [Rx] Aspirin [Adult Aspirin] 81 mg PO DAILY 06/21/18 [History] Atorvastatin [Lipitor] 80 mg PO QAM 06/21/18 [History] Allergy/AdvReac Type Severity Reaction Status Date / Time No Known Allergies Allergy Verified 01/18/17 08:20 All Systems Review: The remainder of the systems were reviewed and are negative Physical Examination Vital Signs, Last 4 Hours Temp Pulse Resp BP Pulse Ox 06/25/18 07:07 98.2 F 62 18 144/80 97 The patient is 6 foot tall and weighs 332 pounds. Pupils are equal, round and reactive to light and accommodation. No oral lesions. Neck is supple. Trachea in the midline. No thyromegaly or carotid bruits. Lungs are clear to percussion and auscultation. Heart is in a regular rate and rhythm. No murmurs, gallops or rubs. Abdomen is benign. No tenderness, rebound or guarding. Extremities without edema. No saphenous vein varicosities or strippings. Cranial nerves, motor and sensory intact. Results 06/24/18 03:57 06/24/18 03:57 Consult Discharge Plan - Plan Referrals: Ronal Landon MD [Primary Care Provider] - 07/03/18 7:30 pm
[2018-06-25] MEDS: Isovue-370 500 ML INFUS..BTL IV ONE ×2 (12:15→12:18)
--- NOTE | 2018-06-25 13:29 | Cardiology Progress Note ---
Date of Encounter: 06/25/18 Time of Encounter: 12:00 Assessment and Plan (1) Chest pain Current Visit: Yes Status: Acute Per cardiology: -Presents with typical/atypical chest pain symptoms. -Troponin negative x4. No ischemic ECG changes noted. -Recent admission with negative nuclear stress test. -Hx of CAD s/p PCI--PCI to LAD January 2017, and high risk PCI to RCA at [facility] also in January 2017--existing mild non-obstructive CAD. -TTE with LVEF preserved, no segmental wall motion abnormalities noted. -S/p LHC yesterday with severe triple vessel disease. CT surgery has been consulted. -Discussed at length with patient regarding CABG vs. multi-vessel PCI. At this time, him and his would like time to think about how to proceed from here. -Will continue to monitor. Qualifiers: Chest pain type: unspecified Qualified Code(s): R07.9 - Chest pain, unspecified (2) CAD (coronary artery disease) Current Visit: No Status: Chronic Per cardiology: -Plan as above. -Continue asa, statin, BB, plavix. Qualifiers: Coronary Disease-Associated Artery/Lesion type: [place] artery [place] vs. transplanted heart: [place] heart Associated angina: with unstable angina Qualified Code(s): I25.110 - Atherosclerotic heart disease of [place] coronary artery with unstable angina pectoris (3) HTN (hypertension) Current Visit: Yes Status: Acute Per cardiology: -Suboptimally controlled in the outpatient setting. -Recent admission, antihypertensives reportedly decreased d/t orthostatic hypotension. -BP uncontrolled upon admission, will add nitrates. -If remains elevated, may need to uptitrate ARB--defer to primary service. Qualifiers: Hypertension type: essential hypertension Qualified Code(s): I10 - Essential (primary) hypertension Discussion w patient/family: The assessment and plan as outlined above was discussed with the patient and who expressed understanding and agreement. All questions were answered. Thank you for involving us in the care of your patient. Please call with any questions. Discussed and reviewed with Subjective Principal diagnosis: chest pain Interval history: Patient resting in bed comfortably, at bedside. Denies chest pain. Denies issues walking or using right leg. Objective Vital Signs, Last 4 Hours Temp Pulse Resp BP Pulse Ox 06/25/18 12:27 97.9 F 57 17 147/75 93 General: Conversant, No Apparent Distress HEENT: Atraumatic, Normocephaly, Mucus Membranes Moist Neck: No JVD, Normal carotid pulses Cardiac: Reg Rate and Rhythm, Normal S1 and S2, No Murmur Lungs: Normal Breath Sounds, No Wheeze, Rales, Rhonchi Neuro: Alert and responsive, No focal deficits noted Abdomen: Soft, Non-Tender Skin: No rashes noted on visualized skin, Other (Right groin access site with mild ecchymosis, no hematoma. ) Musculoskeletal: No Chest Wall Tenderness Extremities: No Clubbing, No Cyanosis, No Edema, Normal Pulses Results 06/24/18 03:57 06/24/18 03:57 Impressions Abdomen/Pelvis CTA 06/25/18 11:45 IMPRESSION: No evidence of thoracic or abdominal aneurysm or arterial dissection. Fatty liver. Status post cholecystectomy. Degenerative disc and joint disease lower lumbar spine. D/ / 06/25/2018 13:02:25 Matthew Kwan MD / rodo Interpreting Provider: Matthew Kwan MD Chest CTA 06/25/18 11:45 IMPRESSION: No evidence of thoracic or abdominal aneurysm or arterial dissection. Fatty liver. Status post cholecystectomy. Degenerative disc and joint disease lower lumbar spine. D/ / 06/25/2018 13:02:25 Matthew Kwan MD / rodo Interpreting Provider: Matthew Kwan MD Active Medications Acetaminophen (Tylenol) 650 mg PO Q6HR PRN PRN Reason: Fever Stop: 12/21/18 21:56 Last Admin: 06/23/18 16:18 Dose: 650 mg Albuterol Sulfate (Albuterol Inhaler) 2 puff IH [id number] PRN PRN Reason: Shortness Of Breath/Wheezing Stop: 12/22/18 16:26 Amlodipine Besylate (Norvasc) 10 mg PO DAILY [facility] Stop: 12/22/18 09:01 Last Admin: 06/25/18 09:11 Dose: 10 mg Aspirin (Aspirin Ec) 81 mg PO DAILY [facility] Stop: 12/22/18 09:01 Last Admin: 06/25/18 09:10 Dose: 81 mg Atenolol (Tenormin) 50 mg PO DAILY [facility] Stop: 12/22/18 09:01 Last Admin: 06/25/18 09:10 Dose: 50 mg Atorvastatin Calcium (Lipitor) 80 mg PO QAM [facility] Stop: 12/22/18 09:01 Last Admin: 06/25/18 09:10 Dose: 80 mg Budesonide/Formoterol Fumarate (Symbicort) 2 puff IH BIDR PRN; Protocol PRN Reason: Shortness Of Breath Stop: 12/21/18 13:21 Dextrose/Water (Dextrose 50% (Syg)) 25 ml IVP AD PRN PRN Reason: Hypoglycemia Stop: 12/21/18 13:54 Glucagon (Glucagen) 1 mg IM ONCE PRN PRN Reason: Hypoglycemia Stop: 12/21/18 13:54 Glucose (Gluctose) 15 gm PO ONCE PRN PRN Reason: Hypoglycemia Stop: 12/21/18 13:54 Glucose (Gluctose) 30 gm PO ONCE PRN PRN Reason: Hypoglycemia Stop: 12/21/18 13:54 Heparin Sodium (Porcine) (Heparin) 5,000 unit SQ Q12HCO [facility] Stop: 12/21/18 18:01 Last Admin: 06/25/18 05:30 Dose: 5,000 unit Dextrose (Dextrose 5%) 1,000 mls @ 100 mls/hr IVC .Q10H PRN PRN Reason: HYPOGLYCEMIA Stop: 12/21/18 13:54 Insulin Human Lispro (Humalog) 0 units SQ HS [facility]; Protocol Stop: 12/21/18 21:01 Last Admin: 06/24/18 23:52 Dose: Not Given Insulin Human Lispro (Humalog) 0 units SQ TIDAC [facility]; Protocol Stop: 12/21/18 16:31 Last Admin: 06/25/18 12:33 Dose: Not Given Isosorbide Mononitrate (Imdur) 60 mg PO DAILY [facility] Stop: 12/23/18 09:01 Last Admin: 06/25/18 09:11 Dose: 60 mg Losartan Potassium (Cozaar) 50 mg PO DAILY [facility] Stop: 12/22/18 09:01 Last Admin: 10/23/18 09:10 Dose: 50 mg Multivitamins/Calcium (Thera M Plus) 1 tab PO DAILY [facility] Stop: 12/22/18 09:01 Last Admin: 06/25/18 09:10 Dose: 1 tab Naloxone HCl (Narcan) 0.4 mg IVP Q2MIN PRN PRN Reason: SEE COMMENTS Stop: 12/21/18 12:34 Nitroglycerin (Nitroglycerin) 0.4 mg SL Q5MIN PRN PRN Reason: Chest Pain Stop: 12/21/18 13:21 Last Admin: 06/23/18 11:42 Dose: 0.4 mg Sertraline HCl (Zoloft) 100 mg PO DAILY [facility] Stop: 12/22/18 09:01 Last Admin: 06/25/18 09:11 Dose: 100 mg Tramadol HCl (Ultram) 50 mg PO Q6HR PRN PRN Reason: Moderate Pain Stop: 12/21/18 12:34 Last Admin: 06/24/18 15:33 Dose: 50 mg Laboratory Tests 06/24/18 06/24/18 03:57 03:57 Hgb 12.0 L Creatinine 0.98 - Imaging and Cardiology Chest Xray: report reviewed Stress Test: report reviewed Echo: report reviewed Cardiac cath: report reviewed - EKG Interpretation EKG results cardiology: other (Telemetry reviewed with average HR previous 12 hours noted to be 60, SR. PVCs and PACs noted.) Consult Discharge Plan - Plan Referrals: Ronal Landon MD [Primary Care Provider] - 07/03/18 7:30 pm
--- NOTE | 2018-06-25 14:03 | Internal Med Progress Note ---
Addendum entered and electronically signed by NAYANA Hammer 06/28/18 15:01: Original Note: <Mackenzie Allred - Last Filed: 06/25/18 15:59> Hospitalist Progress Note - Encounter Date of Encounter: 06/25/18 Time of Encounter: 09:00 - Subjective Interval History: Mr. Zuniga is a 58 y.o. male who presented to the ED with complaint of chest pain and SOB on 06/21/18. He had been admitted 8 days prior for similar symptoms and had a negative stress test. On 06/21, he received a chest x-ray, an EKG, and an echocardiogram. The chest x-ray was negative and showed no evidence of cardiopulmonary disease. The EKG showed non-specific ST-T changes, and the echocardiogram was normal. Troponin was negative. Symptoms resolved with nitro. He had a repeat EKG done on 06/22 which showed sinus bradycardia and an inferior myocardial infarction which was noted to probably be old. Negative troponins x4. Glucose has fluctuated over the course of his stay, and POC glucose was at 201 on 06/24 at 20:24. The first three days of his stay, he had experienced intermittent chest pain and pressure that radiated from his back to either the left or right shoulder. At 11:30 on 06/23, patient reported 4/10 chest pain, was given nitro 3X until pain down to 1/10. This morning, patient denied chest pain but reported that he had had a palpitation earlier in the morning. Underwent left heart catheterization on the afternoon of 06/24 which showed severe three-vessel coronary artery disease. His L subclavian is tortuous, making it unable to torque the catheter. Cardiology recommended a h eart team approach to decide between CABG and multivessel PCI. On 06/25, CT surgery discussed possible CABG with the patient and ordered CTA of chest, abdomen, and pelvis to rule out aneurysm and ordered a transthoracic echocardiogram. CTAs of chest and abdomen showed aorta of normal size. Chest CTA showed atherosclerotic vascular calcifications and a calcified granuloma in L lung base. CTA abdomen showed fatty liver with no focal lesions and degenerative disc and joint disease of lower lumbar spine. Pelvic CTA was non- contributory. The TTE showed a preserved LVEF with no segmental wall motion abnormalities noted. Cardiology met with patient again on 06/25 and again discussed CABG vs multivessel PCI. Patient and wish for time to consider treatment options. PMHx: CAD (stent placement x3 January 2017), HTN, hyperlipidemia, DM, COPD ROS: General - denies fever, chills, dizziness, pain CV - reports palpitation this morning. Denies chest pain currently, edema. Resp - denies dyspnea, cough, wheezing Abd - denies vomiting, nausea, diarrhea. Has not had any bowel movements due to food restriction, but states that he is passing gas. - Exam Vitals: Temp Pulse Resp BP Pulse Ox 97.9 F 57 17 147/75 93 06/25/18 12:27 06/25/18 12:27 06/25/18 12:27 06/25/18 12:27 06/25/18 12:27 Exam: General: Patient sitting comfortably in bed with in chair at side. Alert, oriented X3. In no acute distress. Morbidly obese. Head: atraumatic, normocephalic Eyes: pupils equal and round, sclera white, EOMI Resp: CTA bilaterally. No wheezes, rhonchi, or rales. No respiratory distress. CV: RRR. No murmurs, gallops, or rubs. Normal S1 and S2. Abd: Normal BSx4. Non-tender. No guarding. Extremities: No edema, swelling, or clubbing. Skin: Good skin turgor. Dry, no open wounds. - Assessment and Plan (1) Chest pain Current Visit: Yes Status: Acute Assessment and Plan: Being followed by cardiology and CT surgery. Considering CABG vs multivessel PCI. Give nitro if chest pain continues. Get repeat EKG if necessary. (2) CAD (coronary artery disease) Current Visit: No Status: Chronic Assessment and Plan: Heart cath on 06/24 showed severe three vessel CAD. Considering CABG vs. multivessel PCI. (3) HTN (hypertension) Current Visit: Yes Status: Acute Assessment and Plan: Continue monitoring BP. Continue on current regimen of Norvasc (10 mg daily), atenolol (50 mg daily), and losartan (50 mg daily). (4) Diabetes mellitus Current Visit: Yes Status: Chronic Assessment and Plan: Continue corrective low dose regimen of lispro for elevated blood glucose (5) COPD (chronic obstructive pulmonary disease) Current Visit: No Status: Chronic Assessment and Plan: No respiratory distress. Continue on home medications for treatment. (6) Morbid obesity with BMI of 40.0-44.9, adult Current Visit: No Status: Chronic Assessment and Plan: Morbidly obese. Recommend creating a plan for weight loss. (7) DVT prophylaxis Current Visit: Yes Status: Acute Assessment and Plan: Receiving heparin - 5000 units SQ Q12h (8) BRIAN (obstructive sleep apnea) Current Visit: No Status: Chronic Assessment and Plan: CPAP as needed DVT Prophylaxis: Receiving heparin - 5000 units SQ Q12h - Time Spent with Patient Total time spent is greater than 50% in coordination of care (as documented) at patient's floor/unit and/or counseling patient: less than 15 minutes Internal Medicine: Result - Labs CBC & Chem 7: 06/24/18 03:57 06/24/18 03:57 - ABG Interpretation ABG results: PT/INR, D-dimer PT 12.0 Seconds (9.4-12.1) 06/22/18 03:00 - Impressions Impressions Abdomen/Pelvis CTA 06/25/18 11:45 IMPRESSION: No evidence of thoracic or abdominal aneurysm or arterial dissection. Fatty liver. Status post cholecystectomy. Degenerative disc and joint disease lower lumbar spine. D/ / 06/25/2018 13:02:25 Matthew Kwan MD / rodo Interpreting Provider: Matthew Kwan MD Chest CTA 06/25/18 11:45 IMPRESSION: No evidence of thoracic or abdominal aneurysm or arterial dissection. Fatty liver. Status post cholecystectomy. Degenerative disc and joint disease lower lumbar spine. D/ / 06/25/2018 13:02:25 Matthew Kwan MD / rodo Interpreting Provider: Matthew Kwan MD Consult Discharge Plan - Plan Referrals: Ronal Landon MD [Primary Care Provider] - 07/03/18 7:30 pm <Charly Spencer - Last Filed: 06/25/18 17:11> Hospitalist Progress Note - Exam Vitals: Temp Pulse Resp BP Pulse Ox 97.9 F 62 16 124/83 95 06/25/18 15:16 06/25/18 15:16 06/25/18 15:16 06/25/18 15:16 06/25/18 15:16 - Assessment and Plan (1) CAD (coronary artery disease) Current Visit: No Status: Chronic (2) HTN (hypertension) Current Visit: Yes Status: Acute (3) BRIAN (obstructive sleep apnea) Current Visit: No Status: Chronic (4) Diabetes mellitus Current Visit: Yes Status: Chronic (5) Morbid obesity with BMI of 40.0-44.9, adult Current Visit: No Status: Chronic (6) DVT prophylaxis Current Visit: Yes Status: Acute (7) Chest pain Current Visit: Yes Status: Acute (8) COPD (chronic obstructive pulmonary disease) Current Visit: No Status: Chronic - Time Spent with Patient Total time spent is greater than 50% in coordination of care (as documented) at patient's floor/unit and/or counseling patient: Internal Medicine: Result - Labs CBC & Chem 7: 06/24/18 03:57 06/24/18 03:57 - ABG Interpretation ABG results: PT/INR, D-dimer PT 12.0 Seconds (9.4-12.1) 06/22/18 03:00 - Impressions Impressions Abdomen/Pelvis CTA 06/25/18 11:45 IMPRESSION: No evidence of thoracic or abdominal aneurysm or arterial dissection. Fatty liver. Status post cholecystectomy. Degenerative disc and joint disease lower lumbar spine. D/ / 06/25/2018 13:02:25 Matthew Kwan MD / rodo Interpreting Provider: Matthew Kwan MD Chest CTA 06/25/18 11:45 IMPRESSION: No evidence of thoracic or abdominal aneurysm or arterial dissection. Fatty liver. Status post cholecystectomy. Degenerative disc and joint disease lower lumbar spine. D/ / 06/25/2018 13:02:25 Matthew Kwan MD / rodo Interpreting Provider: Matthew Kwan MD - Attending Attestation The history, physical exam, and medical decision making was performed by the medical student either while I was physically present and actively involved or I personally re-performed the exam and medical decision making. I have verified the accuracy of the medical student's documentation with regards to the history, physical exam findings, and medical decision making on 06/25/18. Mr Zuniga is currently admitted for CAD and [place]. He is being evaluated for CABG versus PCI. He remains moderate to high risk due to potential for worsening clinical status. Mr Zuniga is eating lunch. He just returned from CT. He denies pain at this time. No fever or chills. No cough. No GI issues. Exam alert Comfortable Mucus membranes dry Heart distant and regular No wheeze abd soft I/P 1. USA - resolved 2. CAD - awaiting plan for CABG or PCI Further diagnoses and plan as above. Continue to hold Plavix. <Mackenzie Allred - Last Filed: 06/25/18 15:59> (1) Chest pain Qualifiers: Chest pain type: unspecified Qualified Code(s): R07.9 - Chest pain, unspecified (2) CAD (coronary artery disease) Qualifiers: Coronary Disease-Associated Artery/Lesion type: [place] artery [place] vs. transplanted heart: [place] heart Associated angina: with unstable angina Qualified Code(s): I25.110 - Atherosclerotic heart disease of [place] coronary artery with unstable angina pectoris (3) HTN (hypertension) Qualifiers: Hypertension type: essential hypertension Qualified Code(s): I10 - Essential (primary) hypertension (4) Diabetes mellitus Qualifiers: Diabetes mellitus type: type 2 Diabetes mellitus intermediate frame tender insulin use: without mcc use Diabetes mellitus complication status: with unspecified complications Qualified Code(s): E11.8 - Type 2 diabetes mellitus with unspecified complications (5) COPD (chronic obstructive pulmonary disease) Qualifiers: COPD type: unspecified COPD Qualified Code(s): J44.9 - Chronic obstructive pulmonary disease, unspecified <Charly Spencer - Last Filed: 06/25/18 17:11> (1) CAD (coronary artery disease) Qualifiers: Coronary Disease-Associated Artery/Lesion type: [place] artery [place] vs. transplanted heart: [place] heart Associated angina: with unstable angina Qualified Code(s): I25.110 - Atherosclerotic heart disease of [place] coronary artery with unstable angina pectoris (2) HTN (hypertension) Qualifiers: Hypertension type: essential hypertension Qualified Code(s): I10 - Essential (primary) hypertension (4) Diabetes mellitus Qualifiers: Diabetes mellitus type: type 2 Diabetes mellitus mcc insulin use: without intermediate frame tender use Diabetes mellitus complication status: without complication Qualified Code(s): E11.9 - Type 2 diabetes mellitus without complications (7) Chest pain Qualifiers: Chest pain type: chest pain due to myocardial ischemia Qualified Code(s): I20.0 - Unstable angina (8) COPD (chronic obstructive pulmonary disease) Qualifiers: COPD type: unspecified COPD Qualified Code(s): J44.9 - Chronic obstructive pulmonary disease, unspecified
[2018-06-25] MEDS: traMADol 50 MG TABLET PO PRN (17:26)
[2018-06-26 04:11] LABS: Hemoglobin 12.6 g/dL (12.9-16.9); Mean Corpuscular HGB Conc 33.2 g/dL (31.6-35.5); Mean Corpuscular Hemoglobin 29.9 pg (28.0-33.3); Mean Platelet Volume 10.3 fL (9.4-12.4); Platelet Count 168 K/mcL (140-400); Red Blood Count 4.22 M/mcL (4.19-5.50); Red Cell Distribution Width 12.9 % (11.5-14.5)
[2018-06-26 04:35] LABS: BUN/Creatinine Ratio 15 (6-26); Blood Urea Nitrogen 15 mg/dL (8-23); Calcium 9.2 mg/dL (8.6-10.3); Carbon Dioxide 30 mEq/L (23-29); Chloride 103 mEq/L (98-107); Glucose 131 mg/dL (70-105); Osmolality,Calculated 295 (280-300); Potassium 3.8 mEq/L (3.5-5.1); Sodium 141 mEq/L (136-145); eGFR For Non-African Americans > 60 (> 60)
[2018-06-26 05:11] LABS: INR 1.1
[2018-06-26] MEDS ORDERED: *HR* Heparin 5,000 UNIT/ML VIAL SQ SCH (06:00)
[2018-06-26] MEDS: Multivit/Ca/Min/Fe/FA 1 TAB TABLET PO SCH (08:03)
[2018-06-26] MEDS: Isosorbide MONOnitrate (24 HR) 60 MG TAB.ER.24H PO SCH (08:03)
[2018-06-26] MEDS: amLODIPine 5 MG TABLET PO SCH (08:04)
[2018-06-26] MEDS: Aspirin Enteric Coated 81 MG Tablet PO SCH (08:04)
[2018-06-26] MEDS: Insulin LISPRO 300 UNITS/3 ML VIAL SQ SCH ×2 (08:06→12:13)
--- NOTE | 2018-06-26 09:04 | Cardiothoracic Progress Note ---
Date of Encounter: 06/26/18 Time of Encounter: 08:35 - Assessment and plan (1) CAD (coronary artery disease) Current Visit: No Status: Chronic The patient is a 58-year-old type II diabetic, hypertensive, morbidly obese man with known CAD. He underwent PCI with stent placement at the [facility] in 2016 and has been on Plavix since that time. During the last 2 weeks he has experienced intermittent, exertional, substernal chest pain with radiation to his left shoulder. He underwent cardiac catheterization yesterday was found to have vessel CAD and an LVEF 60%. In particular, the patient has a 30% proximal left main lesion, 70% proximal LAD lesion, a 60% mid LCx lesion, a 70% proximal LCx lesion, 70% proximal RCA lesion , and a 60% distal RCA lesion. The patient has been recommended for CABG. I concur with this recommendation. The STS risk calculator reveals an operative mortality risk 0.86%, deep sternal wound infection risk 0.84%, permanent stroke risk 0.51%, renal failure risk 3.66%, and reoperation risk 3.75%. The patient received his Plavix until yesterday and this will need to be stopped for 5 days prior to CABG. Tentatively, the patient is scheduled for CABG on 07/01/[address] Fan Mccarthy. The assessment and plan as outlined above was discussed with the patient and/or family members who expressed understanding and agreement. All questions were answered. Qualifiers: Coronary Disease-Associated Artery/Lesion type: [place] artery [place] vs. transplanted heart: [place] heart Associated angina: with unstable angina Qualified Code(s): I25.110 - Atherosclerotic heart disease of [place] coronary artery with unstable angina pectoris - Subjective Interval history: The patient is resting comfortably in his hospital bed. He has no complaints of substernal chest pain. Vital Signs, Last 4 Hours Temp Pulse Resp BP Pulse Ox 06/26/18 07:30 98.1 F 63 16 138/78 97 Oxgyen Flow Rate Oxygen Flow Rate (LPM) 3 Clinical Data, last 8 Hours Output, Urine Amount 800 Weight 06/24/18 06/25/18 06/26/18 23:59 23:59 23:59 Weight 146.4 kg 145.3 kg 145 kg - Physical Examination General: Conversant, No Apparent Distress Neck: No JVD, Normal carotid pulses Cardiac: Reg Rate and Rhythm, Normal S1 and S2, No Murmur Lungs: Normal Breath Sounds, No Wheeze, Rales, Rhonchi Neuro: No focal deficits noted Vascular: Normal capillary refill Musculoskeletal: No Chest Wall Tenderness Extremities: No Clubbing, No Cyanosis, No Edema - Labs 06/26/18 03:39 06/26/18 03:39 Lab Results, Last 24 hours 06/26/18 06/26/18 06/26/18 03:39 03:39 04:50 WBC 7.4 Hgb 12.6 L Hct 38.0 Plt Count 168 INR 1.1 Sodium 141 Potassium 3.8 Chloride 103 Carbon Dioxide 30 H BUN 15 Creatinine 0.98 Glucose 131 H Calcium 9.2 Consult Discharge Plan - Plan Referrals: Ronal Landon MD [Primary Care Provider] - 07/03/18 7:30 pm
--- NOTE | 2018-06-26 09:50 | Internal Med Progress Note ---
Addendum entered and electronically signed by NAYANA Hammer 06/28/18 15:01: Original Note: <Mackenzie Alrled - Last Filed: 06/26/18 09:50> Hospitalist Progress Note - Encounter Time of Encounter: 09:37 - Subjective Interval History: Mr. Zuniga is a 58 y.o. male who presented to the ED with complaint of chest pain and SOB on 06/21/18. He had been admitted 8 days prior for similar symptoms and had a negative stress test. On 06/21, he received a chest x-ray, an EKG, and an echocardiogram. The chest x-ray was negative and showed no evidence of cardiopulmonary disease. The EKG showed non-specific ST-T changes, and the echocardiogram was normal. Negative troponins x4. Symptoms resolved with nitro. He had a repeat EKG done on 06/22 which showed sinus bradycardia and an inferior myocardial infarction which was noted to probably be old. The first three days of his stay, he had experienced intermittent chest pain and pressure that radiated from his back to either the left or right shoulder. On 06/23, patient had an episode of chest pain that resolved after nitro x3. On 06/25, patient reported that he had had a palpitation earlier in the morning. Patient underwent left heart catheterization on the afternoon of 06/24 which showed severe three-vessel coronary artery disease. His L subclavian is tortuous, making it unable to torque the catheter. Cardiology recommended a heart team approach to decide between CABG and multivessel PCI. On 06/25, CT surgery discussed possible CABG with the patient and ordered CTA of chest, abdomen, and pelvis to rule out aneurysm and ordered a transthoracic echocardiogram. CTAs of chest and abdomen showed no aortic aneurysm. Chest CTA showed atherosclerotic vascular calcifications. CTA abdomen showed fatty liver with no focal lesions and degenerative disc and joint disease of lower lumbar spine. Pelvic CTA was non-contributory. The TTE showed a preserved LVEF with no segmental wall motion abnormalities noted. CT surgery saw Mr. Zuniga today and decided to proceed with CABG, tentatively scheduled for Sunday. Patient stopped Plavix yesterday and needs to be off it for 5 days before surgery. Patient expressed that he wishes to go home until surgery. Patient is currently NPO; waiting for clearance from CT surgery to resume diet. PMHx: CAD (stent placement x3 January 2017), HTN, hyperlipidemia, DM, COPD ROS: General - denies fever, chills, pain Head - denies headache, dizziness CV - Denies chest pain currently, palpitations, edema. Resp - denies dyspnea, cough, wheezing Abd - denies vomiting, nausea, diarrhea, abdominal pain. Has not had any bowel movements due to food restriction, but states that he is passing gas. - Exam Vitals: Temp Pulse Resp BP Pulse Ox 98.1 F 63 16 138/78 97 06/26/18 07:30 06/26/18 07:30 06/26/18 07:30 06/26/18 07:30 06/26/18 07:30 Exam: General: Patient lying comfortably in bed. Alert, oriented X3. In no acute distress. Morbidly obese. Head: atraumatic, normocephalic Eyes: pupils equal and round, sclera white, EOMI Resp: CTA bilaterally. No wheezes, rhonchi, or rales. No respiratory d istress. CV: RRR. No murmurs, gallops, or rubs. Normal S1 and S2. Abd: Normal BSx4. Non-tender. No guarding. Extremities: No edema, swelling, or clubbing. Skin: Good skin turgor. Dry, no open wounds. - Assessment and Plan (1) Chest pain Status: Acute Assessment and Plan: Tentatively scheduled for CABG on Sunday, 07/01. Give nitro if chest pain continues. Get repeat EKG if necessary. (2) CAD (coronary artery disease) Status: Chronic Assessment and Plan: Heart cath on 06/24 showed severe three vessel CAD. CABG tentatively scheduled for 07/01. (3) HTN (hypertension) Status: Acute Assessment and Plan: Continue monitoring BP. Continue on current regimen of Norvasc (10 mg daily), atenolol (50 mg daily), and losartan (50 mg daily). (4) Diabetes mellitus Status: Chronic Assessment and Plan: Continue corrective low dose regimen of lispro for elevated blood glucose (5) COPD (chronic obstructive pulmonary disease) Status: Chronic Assessment and Plan: No respiratory distress. Continue on home medications for treatment. (6) Morbid obesity with BMI of 40.0-44.9, adult Status: Chronic Assessment and Plan: Morbidly obese. Recommend creating a plan for weight loss. (7) DVT prophylaxis Status: Acute Assessment and Plan: Receiving heparin - 5000 units SQ Q12h (8) BRIAN (obstructive sleep apnea) Status: Chronic Assessment and Plan: CPAP as needed. DVT Prophylaxis: Receiving heparin - 5000 units SQ Q12h - Time Spent with Patient Total time spent is greater than 50% in coordination of care (as documented) at patient's floor/unit and/or counseling patient: less than 15 minutes Internal Medicine: Result - Labs CBC & Chem 7: 06/26/18 03:39 06/26/18 03:39 Labs: Short CBC 06/26/18 Range/Units 03:39 WBC 7.4 (4.3-11.1) K/mcL Hgb 12.6 L (12.9-16.9) g/dL Hct 38.0 (37.5-50.1) % Plt Count 168 (140-400) K/mcL BMP 06/26/18 03:39 Sodium 141 Potassium 3.8 Chloride 103 Carbon Dioxide 30 H BUN 15 Creatinine 0.98 Glucose 131 H Calcium 9.2 - ABG Interpretation ABG results: PT/INR, D-dimer PT 12.0 Seconds (9.4-12.1) 06/26/18 04:50 - Impressions Impressions Abdomen/Pelvis CTA 06/25/18 11:45 IMPRESSION: No evidence of thoracic or abdominal aneurysm or arterial dissection. Fatty liver. Status post cholecystectomy. Degenerative disc and joint disease lower lumbar spine. D/ / 06/25/2018 13:02:25 Matthew Kwan MD / rodo Interpreting Provider: Matthew Kwan MD Chest CTA 06/25/18 11:45 IMPRESSION: No evidence of thoracic or abdominal aneurysm or arterial dissection. Fatty liver. Status post cholecystectomy. Degenerative disc and joint disease lower lumbar spine. D/ / 06/25/2018 13:02:25 Matthew Kwan MD / rodo Interpreting Provider: Matthew Kwan MD Consult Discharge Plan - Plan Instructions: Isosorbide Mononitrate (By mouth), Chest Pain (DC), Chronic Hypertension (DC) Additional Instructions: Follow up for surgery as arranged by cardiothoracic surgeon. Referrals: [facility] [Provider Group] (The office will contact you at home to schedule appointment. ) Ronal Landon MD [Primary Care Provider] - 07/03/18 7:30 pm Prescriptions: Isosorbide MONOnitrate (24 HR) [Imdur] 60 mg PO DAILY #30 tab.er.24h <Charly Spencer - Last Filed: 06/26/18 18:25> Hospitalist Progress Note - Encounter Date of Encounter: 06/26/18 - Exam Vitals: Temp Pulse Resp BP Pulse Ox 98.7 F 56 16 113/61 93 06/26/18 11:32 06/26/18 11:32 06/26/18 11:32 06/26/18 11:32 06/26/18 11:32 - Assessment and Plan (1) Chest pain Status: Resolved (2) CAD (coronary artery disease) Status: Chronic (3) HTN (hypertension) Status: Acute (4) BRIAN (obstructive sleep apnea) Status: Chronic (5) Diabetes mellitus Status: Chronic (6) Morbid obesity with BMI of 40.0-44.9, adult Status: Chronic (7) COPD (chronic obstructive pulmonary disease) Status: Chronic - Time Spent with Patient Total time spent is greater than 50% in coordination of care (as documented) at patient's floor/unit and/or counseling patient: Internal Medicine: Result - Labs CBC & Chem 7: 06/26/18 03:39 06/26/18 03:39 Labs: Short CBC 06/26/18 Range/Units 03:39 WBC 7.4 (4.3-11.1) K/mcL Hgb 12.6 L (12.9-16.9) g/dL Hct 38.0 (37.5-50.1) % Plt Count 168 (140-400) K/mcL BMP 06/26/18 03:39 Sodium 141 Potassium 3.8 Chloride 103 Carbon Dioxide 30 H BUN 15 Creatinine 0.98 Glucose 131 H Calcium 9.2 - ABG Interpretation ABG results: PT/INR, D-dimer PT 12.0 Seconds (9.4-12.1) 06/26/18 04:50 - Impressions Impressions Chest X-Ray 06/26/18 15:09 IMPRESSION: No acute cardiopulmonary disease. D/ / Brigette De La O MD / Brigette De La O MD Interpreting Provider: Brigette De La O MD - Attending Attestation See discharge summary of this date. <Mackenzie Allred - Last Filed: 06/26/18 09:50> (1) Chest pain Qualifiers: Chest pain type: chest pain due to myocardial ischemia Qualified Code(s): I20.0 - Unstable angina (2) CAD (coronary artery disease) Qualifiers: Coronary Disease-Associated Artery/Lesion type: [place] artery [place] vs. transplanted heart: [place] heart Associated angina: with unstable angina Qualified Code(s): I25.110 - Atherosclerotic heart disease of [place] coronary artery with unstable angina pectoris (3) HTN (hypertension) Qualifiers: Hypertension type: essential hypertension Qualified Code(s): I10 - Essential (primary) hypertension (4) Diabetes mellitus Qualifiers: Diabetes mellitus type: type 2 Diabetes mellitus wireline field operator insulin use: without snf use Diabetes mellitus complication status: without complication Qualified Code(s): E11.9 - Type 2 diabetes mellitus without complications (5) COPD (chronic obstructive pulmonary disease) Qualifiers: COPD type: unspecified COPD Qualified Code(s): J44.9 - Chronic obstructive pulmonary disease, unspecified <Charly Spencer - Last Filed: 06/26/18 18:25> (1) Chest pain Qualifiers: Chest pain type: chest pain due to myocardial ischemia Qualified Code(s): I20.0 - Unstable angina (2) CAD (coronary artery disease) Qualifiers: Coronary Disease-Associated Artery/Lesion type: [place] artery [place] vs. transplanted heart: [place] heart Associated angina: with unstable angina Qualified Code(s): I25.110 - Atherosclerotic heart disease of [place] coronary artery with unstable angina pectoris (3) HTN (hypertension) Qualifiers: Hypertension type: essential hypertension Qualified Code(s): I10 - Essential (primary) hypertension (5) Diabetes mellitus Qualifiers: Diabetes mellitus type: type 2 Diabetes mellitus wireline field operator insulin use: without wireline field operator use Diabetes mellitus complication status: without complication Qualified Code(s): E11.9 - Type 2 diabetes mellitus without complications (7) COPD (chronic obstructive pulmonary disease) Qualifiers: COPD type: unspecified COPD Qualified Code(s): J44.9 - Chronic obstructive pulmonary disease, unspecified
--- NOTE | 2018-06-26 10:53 | Cardiology Progress Note ---
Date of Encounter: 06/26/18 Time of Encounter: 09:15 Assessment and Plan (1) Chest pain Current Visit: Yes Status: Acute Per cardiology: -Presents with typical/atypical chest pain symptoms. -Troponin negative x4. No ischemic ECG changes noted. -Recent admission with negative nuclear stress test. -Hx of CAD s/p PCI--PCI to LAD January 2017, and high risk PCI to RCA at [facility] also in January 2017--existing mild non-obstructive CAD. -TTE with LVEF preserved, no segmental wall motion abnormalities noted. -S/p LHC yesterday with severe triple vessel disease. CT surgery has been consulted. -Patient is schedule for outpatient CABG on Sunday. C films reviewed yesterday with interventionalist, who states patient is ok to go home with elective CABG. -Patient educated to call 911/return immediately to ER for any recurrence of chest pain. Patient and state understanding. -Right groin site access management education reviewed with patient and . -Cardiology will sign off and will follow in outpatient setting. Qualifiers: Chest pain type: chest pain due to myocardial ischemia Qualified Code(s): I20.0 - Unstable angina (2) CAD (coronary artery disease) Current Visit: No Status: Chronic Per cardiology: -Plan as above. -Continue asa, statin, BB, imdur. Qualifiers: Coronary Disease-Associated Artery/Lesion type: [place] artery [place] vs. transplanted heart: [place] heart Associated angina: with unstable angina Qualified Code(s): I25.110 - Atherosclerotic heart disease of [place] coronary artery with unstable angina pectoris (3) HTN (hypertension) Current Visit: Yes Status: Acute Per cardiology: -Suboptimally controlled in the outpatient setting. -Bp currently 130-140s systolic. Qualifiers: Hypertension type: essential hypertension Qualified Code(s): I10 - Essenti al (primary) hypertension Discussion w patient/family: The assessment and plan as outlined above was discussed with the patient and who expressed understanding and agreement. All questions were answered. Thank you for involving us in the care of your patient. Please call with any questions. Discussed and reviewed with Subjective Principal diagnosis: chest pain Interval history: Patient resting in bed comfortably, at bedside. Denies chest pain. Denies issues walking or using right leg. Patient states he is anxious to go home. Objective Vital Signs, Last 4 Hours Temp Pulse Resp BP Pulse Ox 06/26/18 10:36 98 F 54 24 94 06/26/18 07:30 98.1 F 63 16 138/78 97 General: Conversant, No Apparent Distress HEENT: Atraumatic, Normocephaly, Mucus Membranes Moist Neck: No JVD, Normal carotid pulses Cardiac: Reg Rate and Rhythm, Normal S1 and S2, No Murmur Lungs: Normal Breath Sounds, No Wheeze, Rales, Rhonchi Neuro: Alert and responsive, No focal deficits noted Abdomen: Soft, Non-Tender Skin: No rashes noted on visualized skin, Other (Right groin access site with mild ecchymosis, no hematoma. ) Musculoskeletal: No Chest Wall Tenderness Extremities: No Clubbing, No Cyanosis, No Edema, Normal Pulses Results 06/26/18 03:39 06/26/18 03:39 Lab Results Impressions Abdomen/Pelvis CTA 06/25/18 11:45 IMPRESSION: No evidence of thoracic or abdominal aneurysm or arterial dissection. Fatty liver. Status post cholecystectomy. Degenerative disc and joint disease lower lumbar spine. D/ / 06/25/2018 13:02:25 Matthew Kwan MD / rodo Interpreting Provider: Matthew Kwan MD Chest CTA 06/25/18 11:45 IMPRESSION: No evidence of thoracic or abdominal aneurysm or arterial dissection. Fatty liver. Status post cholecystectomy. Degenerative disc and joint disease lower lumbar spine. D/ / 06/25/2018 13:02:25 Matthew Kwan MD / rood Interpreting Provider: Matthew Kwan MD Active Medications Acetaminophen (Tylenol) 650 mg PO Q6HR PRN PRN Reason: Fever Stop: 12/21/18 21:56 Last Admin: 06/23/18 16:18 Dose: 650 mg Albuterol Sulfate (Albuterol Inhaler) 2 puff IH [id number] PRN PRN Reason: Shortness Of Breath/Wheezing Stop: 12/22/18 16:26 Amlodipine Besylate (Norvasc) 10 mg PO DAILY [facility] Stop: 04/21/19 09:01 Last Admin: 06/26/18 08:04 Dose: 10 mg Aspirin (Aspirin Ec) 81 mg PO DAILY [facility] Stop: 12/22/18 09:01 Last Admin: 06/26/18 08:04 Dose: 81 mg Atenolol (Tenormin) 50 mg PO DAILY [facility] Stop: 12/22/18 09:01 Last Admin: 06/26/18 08:04 Dose: 50 mg Atorvastatin Calcium (Lipitor) 80 mg PO QAM [facility] Stop: 12/22/18 09:01 Last Admin: 06/26/18 08:03 Dose: 80 mg Budesonide/Formoterol Fumarate (Symbicort) 2 puff IH BIDR PRN; Protocol PRN Reason: Shortness Of Breath Stop: 12/21/18 13:21 Dextrose/Water (Dextrose 50% (Syg)) 25 ml IVP AD PRN PRN Reason: Hypoglycemia Stop: 12/21/18 13:54 Glucagon (Glucagen) 1 mg IM ONCE PRN PRN Reason: Hypoglycemia Stop: 12/21/18 13:54 Glucose (Gluctose) 15 gm PO ONCE PRN PRN Reason: Hypoglycemia Stop: 12/21/18 13:54 Glucose (Gluctose) 30 gm PO ONCE PRN PRN Reason: Hypoglycemia Stop: 12/21/18 13:54 Heparin Sodium (Porcine) (Heparin) 5,000 unit SQ Q12HR [facility] Stop: 12/26/18 06:01 Last Admin: 06/26/18 05:29 Dose: 5,000 unit Dextrose (Dextrose 5%) 1,000 mls @ 100 mls/hr IVC .Q10H PRN PRN Reason: HYPOGLYCEMIA Stop: 12/21/18 13:54 Insulin Human Lispro (Humalog) 0 units SQ HS [facility]; Protocol Stop: 12/21/18 21:01 Last Admin: 06/25/18 20:18 Dose: Not Given Insulin Human Lispro (Humalog) 0 units SQ TIDAC [facility]; Protocol Stop: 12/21/18 16:31 Last Admin: 06/26/18 08:06 Dose: 4 units Isosorbide Mononitrate (Imdur) 60 mg PO DAILY [facility] Stop: 12/23/18 09:01 Last Admin: 06/26/18 08:03 Dose: 60 mg Losartan Potassium (Cozaar) 50 mg PO DAILY [place] Stop: 12/22/18 09:01 Last Admin: 06/26/18 08:03 Dose: 50 mg Multivitamins/Calcium (Thera M Plus) 1 tab PO DAILY [facility] Stop: 12/22/18 09:01 Last Admin: 06/26/18 08:03 Dose: 1 tab Naloxone HCl (Narcan) 0.4 mg IVP Q2MIN PRN PRN Reason: SEE COMMENTS Stop: 12/21/18 12:34 Nitroglycerin (Nitroglycerin) 0.4 mg SL Q5MIN PRN PRN Reason: Chest Pain Stop: 12/21/18 13:21 Last Admin: 06/23/18 11:42 Dose: 0.4 mg Sertraline HCl (Zoloft) 100 mg PO DAILY [facility] Stop: 12/22/18 09:01 Last Admin: 06/26/18 08:04 Dose: 100 mg Tramadol HCl (Ultram) 50 mg PO Q6HR PRN PRN Reason: Moderate Pain Stop: 12/21/18 12:34 Last Admin: 06/25/18 17:26 Dose: 50 mg Laboratory Tests 06/26/18 06/26/18 03:39 03:39 Hgb 12.6 L Creatinine 0.98 - Imaging and Cardiology Chest Xray: report reviewed Echo: report reviewed Cardiac cath: report reviewed - EKG Interpretation EKG results cardiology: other (Telemetry reviewed with average HR previous 12 hours noted to be 58, SB. PVCs and PACs noted.) Consult Discharge Plan - Plan Referrals: Ronal Landon MD [Primary Care Provider] - 07/03/18 7:30 pm
[2018-06-26 11:44] VITALS: BP 113/61
--- NOTE | 2018-06-26 11:50 | Discharge Summary ---
- NOTES TO OUTPATIENT PROVIDER Notes to Outpatient Provider: Pt admitted for recurrent chest pain. Seen by cardiology and had cardiac cath revealing multivessel disease. He has opted for CABG which will be done next week after holding Plavix for 5 days. Date of Encounter: 06/26/18 Time of Encounter: 10:45 - Discharge Diagnosis (1) Chest pain Priority: Primary Status: Resolved Qualifiers: Chest pain type: chest pain due to myocardial ischemia Qualified Code(s): I20.0 - Unstable angina (2) CAD (coronary artery disease) Priority: Secondary Status: Chronic Qualifiers: Coronary Disease-Associated Artery/Lesion type: [place] artery [place] vs. 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 Zuniga is a 58 year old male with hx of CAD presented to ED with chest pain. He had been hospitalized with same symptoms a week earlier. He was placed in the hospital for further evaluation. Mr Zuniga was placed in observation for unstable angina. He was seen by cardiology and treated for ACS. Imdur was increased but he still had pain. On 06/24 he underwent LHC finding severe 3 vessel disease. He was seen by cardiothoracic and opted for CABG. This will be done next week after holding Plavix for 5 days. Today he is comfortable and afebrile. He will be discharged home. - Time Spent with Patient Total time spent providing and/or coordinating discharge services: 41min - Discharge Medications Prescriptions: Isosorbide MONOnitrate (24 HR) [Imdur] 60 mg PO DAILY #30 tab.er.24h Home Medications: Albuterol Sulfate [Ventolin Hfa] 2 puff IH QID 10/29/15 [History] Amlodipine Besylate 10 mg PO DAILY 10/29/15 [History] Budesonide/Formoterol 160/4.5 [Symbicort 160/4.5] 2 puff IH BIDR PRN 10/29/15 [History] [place]-3 Fatty Acids [Fish Oil] 600 mg PO DAILY 10/29/15 [History] Sertraline [Zoloft] 100 mg PO DAILY 10/29/15 [History] Nitroglycerin 0.4 mg SL Q5MIN PRN #10 tab.subl 01/20/17 [Rx] Metformin HCl 1,000 mg PO BID 06/14/18 [History] Multivitamin with Minerals [One-A-Day Maximum Formula] 1 tab PO DAILY 06/14/18 [History] Atenolol [Tenormin] 50 mg PO DAILY #30 tablet 06/15/18 [Rx] Losartan Potassium [Cozaar] 50 mg PO DAILY #30 tab 06/15/18 [Rx] Aspirin [Adult Aspirin] 81 mg PO DAILY 06/21/18 [History] Atorvastatin [Lipitor] 80 mg PO QAM 06/21/18 [History] Isosorbide MONOnitrate (24 HR) [Imdur] 60 mg PO DAILY #30 tab.er.24h 06/26/18 [Rx] Allergies/Adverse Reactions: Allergy/AdvReac Type Severity Reaction Status Date / Time No Known Allergies Allergy Verified 01/18/17 08:20 Date of admission: 06/25/18 18:52 Primary care physician: Ronal Landon MD Consults: 06/21/18 12:25 Consult to Cardiology [CONS] Stat Comment: Consulting Provider: [facility] [place] Reason for Consult: Chest pressure, exertional dyspnea. Neg stress last week. neg initial troponin in ED Time Notified: 12:27 Call Completed: Yes 06/24/18 16:43 Consult to Cardiothoracic Surgery [CONS] Routine Consulting Provider: Cardiothoracic Surgery [place] Reason for Consult: low syntax score. cabg vs. multivsl pci Call Completed: Yes Discharging clinician: Charly Spencer Anticipated date of discharge: 06/26/18 - Constitutional Vitals: Temp Pulse Resp BP Pulse Ox 98.7 F 56 16 113/61 93 06/26/18 11:32 06/26/18 11:32 06/26/18 11:32 06/26/18 11:32 06/26/18 11:32 General appearance: Present: cooperative, A&O X 3, answers questions appropriately Exam: See below - Head Head exam: Present: normocephalic - Eye Eye exam: Present: EOMI, conjuntiva pink - ENT ENT exam: Present: mucous membranes moist - Respiratory Respiratory exam: Present: CTAB. Absent: rales, rhonchi, wheezes - Cardiovascular Cardiovascular exam: Present: RRR. Absent: tachycardia - GI/Abdominal GI/Abdominal exam: Present: soft. Absent: tenderness - Extremities Exam Extremities exam: Present: warm. Absent: tenderness - Neurological Exam Neurological exam: Present: alert, oriented X3 - Skin Skin exam: Present: dry, warm - Patient Status Disposition: Home, Self-Care Condition: Good Functional capacity at discharge: independent ambulation Overall status at discharge: patient is progressing back to baseline - Discharge Instructions Instructions: Isosorbide Mononitrate (By mouth), Chest Pain (DC), Chronic Hypertension (DC) Follow Up With: [facility]or[facility] [place] [Provider Group] (The office will contact you at home to schedule appointment. ) Ronal Landon MD [Primary Care Provider] - 07/03/18 7:30 pm Additional Instructions: Follow up for surgery as arranged by cardiothoracic surgeon. - Diet and Activity Activity: increase activity as tolerated Diet: advance to your usual diet
[2018-06-26 18:28] LABS: Estimated Average Glucose 148 mg/dl; Hemoglobin A1C 6.8 %
--- NOTE | 2018-06-26 22:01 | Electrocardiograph Report ---
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
--- NOTE | 2018-06-27 14:31 | Electrocardiograph Report ---
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
== END 2018-06-26 16:14 | disposition home or self-care (01) | DRG 287 ==
LOC: 3BNU 10:37 → EMEROOARM 10:37 → SUATTDRO 12:37 → 3BNU 13:19 → SUATTDRO 06-25 18:52
PROVIDERS: ADMIT Internal Medicine; ATTEND Internal Medicine

== ENCOUNTER 2018-07-01 06:05 | Inpatient (IN) ==
[~2018-07-01 06:05] MED LIST: Dextrose 50 % in Water (Vial) 30 ML, Sodium Bicarbonate 20 MEQ, Lidocaine 1% 5 ML, Insu... TH ONE; Dextrose 50 % in Water (Vial) 30 ML, Sodium Bicarbonate 20 MEQ, Potassium Chloride 15 M... TH ONE; Heparin 15,000 UNIT in 0.9 % Sodium Chloride 500 ML IV ONE; Insulin Human Regular 100 UNIT in 0.9 % Sodium Chloride 100 ML IV PRN; Norepinephrine 4 MG in D5% in Water 250 ML IVC PRN
[2018-07-01] MEDS ORDERED: Verapamil 5 MG/2 ML VIAL ONE (06:43)
[2018-07-01] MEDS ORDERED: Albuterol 2.5 MG/3 ML NEBULIZER IH ONE (06:46)
[2018-07-01] MEDS ORDERED: Nitroglycerin 25 MG/250 ML INFUS..BTL IVC ONE (06:48)
[2018-07-01] MEDS ORDERED: *HR* Propofol 200 MG/20 ML VIAL IVP ONE (06:51)
[2018-07-01] MEDS ORDERED: *HR* FentaNYL (PF) 1,000 MCG/20 ML VIAL ONE (06:51)
[2018-07-01] MEDS ORDERED: *HR* Midazolam HCl 5 MG/5 ML VIAL IVP ONE (06:51)
[2018-07-01] MEDS ORDERED: Lidocaine 2% Syringe 100 MG/5 ML ONE (06:52)
[2018-07-01] MEDS ORDERED: Tranexamic Acid 1,000 MG/10 ML VIAL ONE (06:52)
[2018-07-01] MEDS ORDERED: *HR* EPINEPHrine 1 MG/ML AMPUL ONE (06:53)
[2018-07-01] MEDS ORDERED: *HR* Magnesium Sulfate 1 GM/2 ML VIAL ONE (06:53)
[2018-07-01] MEDS ORDERED: *HR* Phenylephrine 10 MG/ML VIAL ONE (06:53)
[2018-07-01] MEDS ORDERED: *HR* Rocuronium Bromide 50 MG/5 ML VIAL ONE ×3 (06:53→11:17)
[2018-07-01] MEDS ORDERED: CeFAZolin Syr 3,000MG/30 ML 3,000 MG/30 ML SYRINGE IVPB ONE (06:53)
[2018-07-01] MEDS ORDERED: Albuterol 2.5 MG/3 ML NEBULIZER ONE (06:54)
[2018-07-01] MEDS ORDERED: Ringers Solution, Lactated 1,000 ML IVC SCH (07:00)
[2018-07-01] MEDS ORDERED: Chlorhexidine Rinse 15 ML MOUTHWASH MM ONE (07:00)
[2018-07-01] MEDS ORDERED: Heparin 1,000 UNITS/500 mL 500 ML ONE (07:04)
[2018-07-01] MEDS ORDERED: LIDOCAINE 1% PF 2 ML AMPUL ONE (07:08)
--- NOTE | 2018-07-01 07:14 | Anesthesia Evaluation PreOp ---
Date of Encounter: 07/01/18 Time of Encounter: 07:28 - Past History Planned Operation: CABG Cardiac History: Angina, HTN, Hyperlipidemia, Cardiac Stent (01/2017 DESx2 to LAD and RCA), Other (CAD) Pulmonary History: Asthma, BRIAN Dx (Bipap? 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 History: Other (anxiety depression) Other Medical History: Diabetes Type II, GERD, Other (obese) Anesthesia History: Past Anesthesia (left shoulder, sherry, vasectomy, CTR, heart stents) Alcohol Use: occasionally Drug use: none Medications and Allergies Albuterol Sulfate [Ventolin Hfa] 2 puff IH QID 10/29/15 [History] Amlodipine Besylate 10 mg PO DAILY 10/29/15 [History] Budesonide/Formoterol 160/4.5 [Symbicort 160/4.5] 2 puff IH BIDR PRN 10/29/15 [History] [place]-3 Fatty Acids [Fish Oil] 600 mg PO DAILY 10/29/15 [History] Sertraline [Zoloft] 100 mg PO DAILY 10/29/15 [History] Nitroglycerin 0.4 mg SL Q5MIN PRN #10 tab.subl 01/20/17 [Rx] Metformin HCl 1,000 mg PO BID 06/14/18 [History] Multivitamin with Minerals [One-A-Day Maximum Formula] 1 tab PO DAILY 06/14/18 [History] Atenolol [Tenormin] 50 mg PO DAILY #30 tablet 06/15/18 [Rx] Losartan Potassium [Cozaar] 50 mg PO DAILY #30 tab 06/15/18 [Rx] Aspirin [Adult Aspirin] 81 mg PO DAILY 06/21/18 [History] Atorvastatin [Lipitor] 80 mg PO QAM 06/21/18 [History] Isosorbide MONOnitrate (24 HR) [Imdur] 60 mg PO DAILY #30 tab.er.24h 06/26/18 [Rx] Allergy/AdvReac Type Severity Reaction Status Date / Time No Known Allergies Allergy Verified 07/01/18 07:29 - Meds/Allergy Pre-op Review Medications Reviewed: Yes Allergies Reviewed: Yes Beta Blockers on Current Med List: Yes (atenolol 50 mg ) If Beta Blockers taken, Date/Time (Last Dose taken): 0500 Anesthesia Results - Labs Laboratory Tests 06/22/18 06/26/18 06/26/18 03:00 03:39 03:39 WBC 7.4 Hgb 12.6 L Hct 38.0 Plt Count 168 PT INR APTT 34.8 Sodium 141 Potassium 3.8 Chloride 103 Carbon Dioxide 30 H BUN 15 Creatinine 0.98 Est GFR (Non-Af Amer) > 60 Hemoglobin A1c 06/26/18 06/26/18 04:50 15:46 WBC Hgb Hct Plt Count PT 12.0 INR 1.1 APTT Sodium Potassium Chloride Carbon Dioxide BUN Creatinine Est GFR (Non-Af Amer) Hemoglobin A1c 6.8 H - Imaging EKG: report reviewed (SINUS RHYTHM POOR R WAVE PROGRESSION INFERIOR INFARCT, AGE INDETERMINED NONSPECIFIC ST & T-WAVE ABNORMALITY), image reviewed Additional studies: [facility] 06/24/2018 Unstable Angina Suspected CAD Impressions: There is severe three vessel coronary artery disease. The left ventricle is normal and has normal contractility EF 55% Tortuous left subclavian - unable to torque catheter Diabetes Recommendations: Optimal medical therapy of patient's disease. Aggressive risk factor modification. Low syntax score - heart team approach; CABG versus multivessel PCI Estimated Blood Loss: minimal Complications: None LV Ventriculography Ejection Method: LV Gram Ejection Fraction: 55% Wall Motion: [place] Anterobasal Normal Anterolateral Normal Apical: Normal Inferoapical Normal Inferobasal Normal Coronary Dominance: right Lesion Findings/Interventions * Left Main Coronary Artery There is a 30% stenosis in the Proximal LMCA. * Left Anterior Descending There is a 70-80% stenosis in the Proximal LAD. There is a 50-60% stenosis in the Mid LAD. * Circumflex There is a 70% stenosis in the Proximal Circumflex/OM * Right Coronary Artery There is a 70% stenosis in the Proximal RCA. There is a 50-60% stenosis in the Distal RCA. Right iliofemoral angiography - no significant disease noted. Sheath below inguinal ligament Echo 06/21/2018 Findings: Study Quality * Technically adequate. ECG Findings * Normal sinus rhythm. Left Ventricle * LVEF 60-65%. * Definity echo contrast was used. * Normal LV chamber size. * LV wall thickness measurements not well obtained. Grossly, LV wall thickness appears normal. Right Ventricle * Normal right ventricular structure and function. Pericardium * There is no pericardial effusion present. Aorta * Aortic root measures 4.1 cm. Anesthesia Exam Vital Signs/O2 Sat/Glucose, Most Recent Temp Pulse Resp BP Pulse Ox 98.5 F 62 18 161/93 96 07/01/18 06:25 07/01/18 06:25 07/01/18 06:56 07/01/18 06:56 07/01/18 06:56 Blood Glucose* 125 Height: 1.83 Weight: 145 kg NPO (# of Hours): > 8 hr - HEENT Pupil (Motor): Pupils equal Mallampati: III Teeth: Missing Oral Opening: Greater than 3 - MGMT SPECIALIST LOC: Oriented MGMT SPECIALIST Motor: Normal RUE, Normal LUE, Normal RLE, Normal LLE, Normal Face MGMT SPECIALIST Sensory: Normal: RUE, LUE, RLE, LLE, Face - Cardiac Rhythm: Regular Murmur: None - Pulmonary Breath Sounds: bilateral Clear Respiratory Effort: Symmetrical Anesthesia Assess/Plan ASA Score: 4 Modified [place] Scale for Level of Consciousness: Cooperative, oriented, and tranquil Anesthetic Plan: General Monitoring Plan: Standard Monitors, A-Line, PAC, JOEL Recovery Plan: ICU
[2018-07-01] MEDS: Aspirin Enteric Coated 325 MG Tablet PO SCH (07:26)
--- NOTE | 2018-07-01 07:42 | History & Physical Report ---
Date of Encounter: 07/01/18 Time of Encounter: 07:41 24 Hour HP Update - Instructions Instructions: If the History and Physical is less than 30 days old and was completed prior to A.M. admission and or procedure and has NOT been updated on calendar day of procedure please complete this update prior to performing procedure. - Update Patient reports changes in Medical Condition: No Changes in examination, assessment, or condition: No Changes in Medication: No Preop tests/diagnostics Reviewed: Yes Pre-Op MRSA Screen: Negative Surgery Remains Indicated: Yes Consent for Planned Operative Procedure(s) Verified: Yes - Pre-Operative Checklist Preoperative Checklist Indicated: Yes Prophylactic Antibiotic Ordered: Yes Home Medications Include Beta Marilu: Yes Beta Marilu Taken Today (Day of Surgery): Yes Beta Marilu Taken Yesterday (Day Prior to Surgery): Yes Is VTE Prophylaxis Indicated?: Yes
[2018-07-01] MEDS ORDERED: *HR* Phenylephrine 10 MG/ML VIAL IVC ONE ×2 (07:57→08:54)
[2018-07-01] MEDS ORDERED: Mannitol 25% vial 12.5 GM/50 ML VIAL IVP ONE ×2 (07:57→08:54)
[2018-07-01] MEDS ORDERED: Tranexamic Acid 1,000 MG/10 ML VIAL IVPB ONE ×2 (07:57→08:54)
[2018-07-01] MEDS ORDERED: Albumin Human 25% 25 GM/100 ML IV.SOLN IV ONE ×2 (07:57→08:54)
[2018-07-01] MEDS ORDERED: Lidocaine 2% Syringe 100 MG/5 ML IV ONE ×2 (07:57→08:54)
[2018-07-01] MEDS ORDERED: *HR* Heparin 10,000 UNIT/10 ML VIAL IV ONE ×2 (07:57→08:54)
[2018-07-01] MEDS ORDERED: *HR* Magnesium Sulfate 2 GM/50 ML PIGGYBACK IVPB ONE ×2 (07:57→08:54)
[2018-07-01 08:17] LABS: ABG Base Excess -2 mEq/L (-2 to 3); ABG Chloride 109 mEq/L (98-107); ABG Glucose 133 mg/dL (60-95); ABG HCO3 23 mEq/L (21-27); ABG Ionized Calcium 1.05 mmol/L (1.15-1.35); ABG Oxygen Saturation 100 % (95-98); ABG PCO2 39 mmHg (35-45); ABG PH 7.39 pH Units (7.32-7.45); ABG PO2 320 mmHg (85-104); ABG TCO2 25 mEq/L (20-26)
[2018-07-01] MEDS ORDERED: Dexamethasone 4 MG/ML VIAL ONE (08:47)
[2018-07-01] MEDS ORDERED: Famotidine 20 MG/2 ML VIAL ONE (08:47)
[2018-07-01] MEDS ORDERED: *HR* FentaNYL (PF) 250 MCG/5 ML VIAL ONE ×2 (08:53→09:38)
[2018-07-01] MEDS ORDERED: Heparin 1,000 UNITS/500 mL IV.SOLN IVC ONE (08:54)
[2018-07-01] MEDS ORDERED: D5% in Water 250 ML IV BAG IV ONE (08:54)
--- NOTE | 2018-07-01 09:13 | Anesthesia Procedures ---
Date of Encounter: 07/01/18 Time of Encounter: 08:00 Procedures: Anesthesia - Arterial Line Consent obtained: written consent Time out performed: Yes Sedation: Versed (mg): 2 Sedation: Fentanyl (mcg): 100 Supplemental Oxygen via Nasal Cannula (L/min): 6 Local Anesthetic: Lidocaine 1% Amount of Anesthetic used (mls): 0.2 Size (Gauge): 20 Length (inches): 1 3/4 Technique Used: sterile prep, direct puncture technique Post-Procedure: line taped into place, dry sterile dressing placed Patient tolerated procedure: well, no complications Complications: none Site: Radial L Vitals: see anesthesia sheet - Central Line Placement Right IJ Consent obtained: written consent Time out performed: Yes Patient placed on monitor/pulse ox: Yes Supplemental Oxygen via Nasal Cannula (L/min): 4 (general anesthesia) prep: mask, gown, gloves Central line prep: Chlorhexidine scrub Ultrasound used for placement: Yes Technique: Seldinger Lumen Inserted: single Size / Length: 9 Fr / 10 cm Post procedure: sutured in place, good blood return, all ports aspirated, flushed, capped, sterile dressing applied Patient tolerated procedure: well, no complications Complications: none Comments: PAC inserted with pressure waveform analysis. Secured at 55 cm
[2018-07-01 09:38] LABS: ABG Base Excess 0 mEq/L (-2 to 3); ABG Chloride 106 mEq/L (98-107); ABG Glucose 167 mg/dL (60-95); ABG HCO3 24 mEq/L (21-27); ABG Ionized Calcium 1.14 mmol/L (1.15-1.35); ABG Oxygen Saturation 96 % (95-98); ABG PCO2 38 mmHg (35-45); ABG PH 7.41 pH Units (7.32-7.45); ABG PO2 84 mmHg (85-104); ABG TCO2 25 mEq/L (20-26)
[2018-07-01] MEDS ORDERED: Protamine Sulfate 250 MG/25 ML VIAL IVP ONE (09:49)
[2018-07-01 10:10] LABS: ABG Base Excess 2 mEq/L (-2 to 3); ABG Chloride 103 mEq/L (98-107); ABG Glucose 208 mg/dL (60-95); ABG HCO3 26 mEq/L (21-27); ABG Ionized Calcium 1.03 mmol/L (1.15-1.35); ABG Oxygen Saturation 100 % (95-98); ABG PCO2 40 mmHg (35-45); ABG PH 7.42 pH Units (7.32-7.45); ABG PO2 406 mmHg (85-104); ABG TCO2 27 mEq/L (20-26)
[2018-07-01] MEDS ORDERED: *HR* Amiodarone 150 MG/3 ML VIAL IVPB ONE (10:42)
[2018-07-01 11:00] LABS: ABG Base Excess 1 mEq/L (-2 to 3); ABG Chloride 103 mEq/L (98-107); ABG Glucose 180 mg/dL (60-95); ABG HCO3 26 mEq/L (21-27); ABG Ionized Calcium 1.03 mmol/L (1.15-1.35); ABG Oxygen Saturation 100 % (95-98); ABG PCO2 43 mmHg (35-45); ABG PO2 293 mmHg (85-104); ABG TCO2 27 mEq/L (20-26)
[2018-07-01 11:40] LABS: ABG Base Excess 0 mEq/L (-2 to 3); ABG Chloride 106 mEq/L (98-107); ABG Glucose 129 mg/dL (60-95); ABG HCO3 25 mEq/L (21-27); ABG Ionized Calcium 1.17 mmol/L (1.15-1.35); ABG Oxygen Saturation 95 % (95-98); ABG PCO2 42 mmHg (35-45); ABG PH 7.38 pH Units (7.32-7.45); ABG PO2 75 mmHg (85-104); ABG TCO2 26 mEq/L (20-26)
[2018-07-01] MEDS ORDERED: Albumin Human 5% 50.0 GM/1,000 ML VIAL ONE (12:07)
[2018-07-01] MEDS ORDERED: Acetaminophen 325 MG TABLET PO PRN (12:15)
[2018-07-01] MEDS ORDERED: Naloxone 0.4 MG/ML INJ IVP PRN (12:15)
[2018-07-01] MEDS ORDERED: *HR* Dextrose 50 % in Water (Syg) 50 ML SYRINGE IVP PRN (12:15)
[2018-07-01] MEDS ORDERED: Ondansetron 4 MG/2 ML VIAL IVP PRN (12:15)
[2018-07-01] MEDS ORDERED: *HR* Promethazine 25 MG/ML VIAL IVP PRN (12:15)
[2018-07-01] MEDS ORDERED: Potassium Chloride 40 MEQ/200 ML BAG IVPB PRN (12:15)
[2018-07-01] MEDS: Nitroglycerin 25 MG/250 ML INFUS..BTL IVC SCH ×3 (12:25→19:44)
[2018-07-01] MEDS ORDERED: niCARdipine 40 MG/200 ML MLS IVC ONE (12:30)
[2018-07-01 12:52] LABS: Basophils % 0.2 %; Eosinophils # 0.1 K/mcL (0.0-0.6); Eosinophils % 0.3 %; Hematocrit 33.4 % (37.5-50.1); Hemoglobin 11.4 g/dL (12.9-16.9); Immature Granulocytes % 1.2 % (0-4); Lymphocytes # 1.9 K/mcL (0.6-4.6); Lymphocytes % 10.5 %; Mean Corpuscular HGB Conc 34.1 g/dL (31.6-35.5); Mean Corpuscular Hemoglobin 30.1 pg (28.0-33.3); Mean Corpuscular Volume 88.1 fL (83.0-100.0); Mean Platelet Volume 9.8 fL (9.4-12.4); Monocytes # 0.7 K/mcL (0.0-1.3); Monocytes % 4.1 %; Neutrophils # 14.9 K/mcL (1.6-8.9); Platelet Count 180 K/mcL (140-400); Red Blood Count 3.79 M/mcL (4.19-5.50); Red Cell Distribution Width 13.2 % (11.5-14.5); Segmented Neutrophils % 83.7 %
[2018-07-01 12:52] LABS: ABG Base Excess 1 mEq/L (-2 to 3); ABG HCO3 26 mEq/L (21-27); ABG Oxygen Saturation 96 % (95-98); ABG PCO2 39 mmHg (35-45); ABG PH 7.43 pH Units (7.32-7.45); ABG PO2 81 mmHg (85-104); ABG TCO2 27 mEq/L (20-26); Blood Gas Modality VC; Blood Gas PEEP 5 cm H2O; Blood Gas Respiration Rate 16; Blood Gas VT 600 cc
[2018-07-01 13:00] LABS: INR 1.2; Prothrombin Time 13.8 Seconds (9.4-12.1)
[2018-07-01] MEDS: Insulin Human Regular 100 UNIT in 0.9 % Sodium Chloride 100 ML IVC SCH ×2 (13:00→23:51)
[2018-07-01] MEDS: Insulin Regular, Human 100 UNIT/ML IV PRN ×2 (13:00→15:11)
[2018-07-01 13:02] LABS: Activated Partial Thrombo Time 34.8 Seconds (26.0-36.0)
[2018-07-01] MEDS: *HR* FentaNYL (PF) 100 MCG/2 ML VIAL IVP PRN ×4 (13:06→20:14)
[2018-07-01 13:09] LABS: BUN/Creatinine Ratio 13 (6-26); Blood Urea Nitrogen 14 mg/dL (8-23); Calcium 8.5 mg/dL (8.6-10.3); Carbon Dioxide 25 mEq/L (23-29); Chloride 106 mEq/L (98-107); Glucose 163 mg/dL (70-105); Magnesium 2.8 mg/dL (1.6-2.6); Osmolality,Calculated 292 (280-300); Potassium 3.9 mEq/L (3.5-5.1); Sodium 139 mEq/L (136-145); eGFR For Non-African Americans > 60 (> 60)
--- NOTE | 2018-07-01 13:25 | Anesthesia Evaluation Post Op ---
Date of Encounter: 07/01/18 Time of Encounter: 13:24 - Vital Signs Vital Signs: Vital Signs/O2 Sat/Glucose, Most Recent Temp Pulse Resp BP Pulse Ox 98.5 F 62 16 135/91 93 07/01/18 06:25 07/01/18 06:25 07/01/18 12:25 07/01/18 12:25 07/01/18 12:25 Blood Glucose* 125 - Lungs Lungs: Clear Ascult./Percussion - Airway Airway: Intubated - Cardiovascular New Rhythm (paced) - Mental Status Mental Status: Sedated - Pain Pain Scale used: WilsonKathryn (Faces) - Nausea Vomiting Nausea Vomiting: Not Present - Hydration Hydration: NPO Notes: 07/01/18 13:24 patient remains in ICU intubated and sedated. Weaning to extubate when safe.
[2018-07-01] MEDS: *HR* OxyCODONE/APAP 5/325 TABLET PO PRN ×2 (13:45→17:28)
--- NOTE | 2018-07-01 14:14 | Operative Note ---
Date of procedure: 07/01/18 Was there an business banking sales assistant present: Yes Steam Station Supervisor: Mike Seals Estimated blood loss (cc): 750 Specimen: none Condition: stable Disposition: ICU Procedure in Detail: Preoperative diagnosis. Coronary artery disease. Postoperative diagnosis. Same. Procedures. Coronary artery bypass grafting 3 with the left internal mammary artery to the LAD and saphenous vein grafts to the posterior descending branch over the right coronary artery and obtuse marginal branch of the circumflex coronary artery. Surgeon. Dr. Fan Mccarthy. Patient is a 58-year-old gentleman who is had stents in the past and presented with angina. Cardiac catheterization revealed triple-vessel disease and he was referred for surgery. The patient was brought to the operating room where he was prepped and draped in standard fashion. The right greater saphenous vein was harvested from below the right knee to the groin. This was done through 2 small incisions using the scope. These incisions were subsequently closed using a deep layer of 2-0 Vicryl and a 3-0 Vicryl subcuticular stitch. A standard median sternotomy was performed. The left internal mammary artery was inserted in the left internal mammary artery was harvested in standard fashion using the Bovie electrocoagulation. Following this, the mammary retractor was removed and the standard sternal filler spreader was inserted. Pericardium was opened in the midline and suspended with 2-0 silk stay sutures. A double pursestring of 20 Surgilon was placed in the aorta for the aortic cannulation site. A pursestring of 20 Surgilon was placed in the right atrial appendage for the venous uptake. The patient was heparinized. The aorta was cannulated without difficulty. 2 stage venous uptake cannula was inserted through the right atrial appendage. A pursestring of 3-0 silk was placed in the aorta and the cardioplegia needle was inserted through here. This was also used is an active and passive aortic vent. The patient was placed on cardiopulmonary bypass and cooled to 34.8 degrees. The aorta was crossclamped and a liter of antegrade cardioplegia was given. Topical cooling with iced saline slush was also done. Attention was first turned to the right coronary artery. The main right coronary artery was too diffusely diseased for grafting. The posterior descending branch was dissected free with the Houlton blade and opened with a Houlton blade and the Stokes scissors. This had a lumen of 1-1/2 mm and was relatively free of disease. A standard end-to-side anastomosis was constructed using the saphenous vein and a 7-0 Prolene. When this was completed, the patient received an additional dose of antegrade cardioplegia. Attention was turned to the circumflex. The obtuse marginal branch was dissected free with the Houlton blade and opened with the Houlton blade and the Stokes scissors. It had a lumen of 2 mm and was relatively free of disease. A standard end-to-side anastomosis was constructed using the saphenous vein and a 7-0 Prolene. When this is completed, the patient received a last dose of antegrade cardioplegia. Attention was turned to the LAD. The LAD was dissected free with the Houlton blade and opened with a Houlton blade and the Stokes scissors. This had a lumen of 1-1/2 mm with mild diffuse disease. A standard end-to-side anastomosis was constructed using the mammary artery and a 7-0 Prolene. When this was completed, the previously placed bulldog clamp was removed and the hemostasis was good. Pedicles tacked to the surface of the heart using 2 interrupted 5-0 silk sutures. Cross-clamp was removed and rewarming was begun. A side biting clamp was placed on the aorta and the cardioplegia needle was removed. 2 holes were made in the aorta using a Houlton blade and the 4.4 mm aortic punch. 2 proximal anastomoses were constructed in standard fashion using the saphenous veins and 5-0 Prolene's. When this was completed, the previously place clamp was removed. Grafts were de-aired using #25-gauge needle and the previously placed bulldog clamps were removed. Distal anastomoses were inspected and found to be hemostatic. We did place FloSeal and fibrillar around the distal and proximal anastomoses. Proximal anastomoses were marked with a marker for a Ray-Zaira sponge. A pair of atrial and ventricular pacing wires was left. A 32 right angle chest tube to the left pleural space. A 32 right angle chest tube to the pericardial well. A 42 mediastinal chest tube. The patient was weaned from bypass requiring no pressors for support. He was decannulated and protamine was given. Hemostasis was good and the hemodynamics were good. Pericardium was loosely closed with interrupted 2-0 silk sutures. We did use platelet rich and platelet poor plasma on the sternum and tissues above the sternum. Sternum was closed with #7 sternal wires in simple and [id number] fashion. Fascia was run with a #1 Vicryl. Subcutaneous tissues with a 2-0 Vicryl. Skin was closed with a 3-0 Vicryl subcuticular stitch. The patient tolerated the procedure well and was returned to intensive care unit in satisfactory and stable condition. Total bypass time 95 minutes. Total cross-clamp time 67 minutes. Human cooled to 34.8 degrees.
[2018-07-01] MEDS: niCARdipine 40 MG/200 ML MLS IVC SCH ×2 (14:38→15:06)
[2018-07-01] MEDS: Norepinephrine 4 MG in D5% in Water 250 ML IVC SCH (14:41)
[2018-07-01] MEDS: ceFAZolin 3,000 MG in 0.9 % Sodium Chloride 100 ML IVPB SCH (15:04)
[2018-07-01] MEDS: Ringers Solution, Lactated 1,000 ML IVC SCH (15:04)
[2018-07-01 15:20] LABS: ABG Base Excess 0 mEq/L (-2 to 3); ABG HCO3 25 mEq/L (21-27); ABG Oxygen Saturation 98 % (95-98); ABG PCO2 41 mmHg (35-45); ABG PH 7.39 pH Units (7.32-7.45); ABG PO2 106 mmHg (85-104); ABG TCO2 26 mEq/L (20-26); Blood Gas Modality VC; Blood Gas PEEP 5 cm H2O
[2018-07-01] MEDS: Chlorhexidine Rinse 15 ML MOUTHWASH MM SCH (20:58)
[2018-07-02] MEDS: ceFAZolin 3,000 MG in 0.9 % Sodium Chloride 100 ML IVPB SCH (00:57)
[2018-07-02] MEDS: *HR* FentaNYL (PF) 100 MCG/2 ML VIAL IVP PRN (02:20)
[2018-07-02] MEDS: *HR* OxyCODONE/APAP 5/325 TABLET PO PRN ×4 (02:20→15:57)
[2018-07-02 03:56] LABS: Basophils % 0.2 %; Hemoglobin 10.7 g/dL (12.9-16.9); Lymphocytes # 1.3 K/mcL (0.6-4.6); Lymphocytes % 6.7 %; Mean Corpuscular HGB Conc 33.4 g/dL (31.6-35.5); Mean Corpuscular Hemoglobin 30.2 pg (28.0-33.3); Mean Corpuscular Volume 90.4 fL (83.0-100.0); Mean Platelet Volume 9.7 fL (9.4-12.4); Monocytes # 1.9 K/mcL (0.0-1.3); Monocytes % 9.8 %; Neutrophils # 15.6 K/mcL (1.6-8.9); Platelet Count 192 K/mcL (140-400); Red Blood Count 3.54 M/mcL (4.19-5.50); Red Cell Distribution Width 13.5 % (11.5-14.5); Segmented Neutrophils % 82.3 %
[2018-07-02] MEDS: Ringers Solution, Lactated 1,000 ML IVC SCH ×2 (03:58→15:40)
[2018-07-02 04:05] LABS: INR 1.2; Prothrombin Time 13.7 Seconds (9.4-12.1)
[2018-07-02 04:07] LABS: Activated Partial Thrombo Time 31.2 Seconds (26.0-36.0)
[2018-07-02 04:12] LABS: BUN/Creatinine Ratio 14 (6-26); Blood Urea Nitrogen 21 mg/dL (8-23); Calcium 8.5 mg/dL (8.6-10.3); Carbon Dioxide 24 mEq/L (23-29); Chloride 106 mEq/L (98-107); Glucose 105 mg/dL (70-105); Magnesium 2.4 mg/dL (1.6-2.6); Osmolality,Calculated 289 (280-300); Potassium 4.2 mEq/L (3.5-5.1); Sodium 138 mEq/L (136-145); eGFR For Non-African Americans 50 (> 60)
[2018-07-02] MEDS: Nitroglycerin 25 MG/250 ML INFUS..BTL IVC SCH (06:11)
--- NOTE | 2018-07-02 07:28 | Cardiothoracic Progress Note ---
Date of Encounter: 07/02/18 Time of Encounter: 07:25 - Assessment and plan (1) CAD (coronary artery disease) Current Visit: No Status: Chronic The assessment and plan as outlined above was discussed with the patient and/or family members who expressed understanding and agreement. All questions were answered. We will leave the patient in the ICU today. We will discontinue his Franklin-Suzy catheter and arterial line. We will leave his Beach catheter until tomorrow when we take out the chest tubes per the patient's request. - Subjective Interval history: The patient is extubated and complains of mild postoperative pain. Vital Signs, Last 4 Hours Pulse Resp BP Pulse Ox 07/02/18 07:00 79 18 125/65 93 07/02/18 06:00 79 20 104/58 95 07/02/18 05:00 79 18 107/58 93 07/02/18 04:00 79 17 106/60 94 07/02/18 03:37 17 113/61 95 Oxgyen Flow Rate Oxygen Flow Rate (LPM) 4 Clinical Data, last 8 Hours Output, Chest Tube Drainage 2 Amount [Mediastinal #1] Output, Chest Tube Drainage 2 Amount [Mediastinal #1] Output, Chest Tube Drainage 0 Amount [Mediastinal #1] Output, Chest Tube Drainage 5 Amount [Mediastinal #1] Output, Chest Tube Drainage 2 Amount [Mediastinal #1] Output, Chest Tube Drainage 0 Amount [Mediastinal #1] Output, Chest Tube Drainage 4 Amount [Mediastinal #1] Output, Chest Tube Drainage 0 Amount [Mediastinal #1] Output, Chest Tube Drainage 0 Amount [Mediastinal #2] Output, Chest Tube Drainage 0 Amount [Mediastinal #2] Output, Chest Tube Drainage 18 Amount [Mediastinal #2] Output, Chest Tube Drainage 7 Amount [Mediastinal #2] Output, Chest Tube Drainage 10 Amount [Mediastinal #2] Output, Chest Tube Drainage 5 Amount [Mediastinal #2] Output, Chest Tube Drainage 12 Amount [Mediastinal #2] Output, Chest Tube Drainage 6 Amount [Mediastinal #2] Output, Chest Tube Drainage 0 Amount [Mediastinal #3] Output, Chest Tube Drainage 0 Amount [Mediastinal #3] Output, Chest Tube Drainage 5 Amount [Mediastinal #3] Output, Chest Tube Drainage 0 Amount [Mediastinal #3] Output, Chest Tube Drainage 2 Amount [Mediastinal #3] Output, Chest Tube Drainage 0 Amount [Mediastinal #3] Output, Chest Tube Drainage 0 Amount [Mediastinal #3] Output, Chest Tube Drainage 0 Amount [Mediastinal #3] Weight 06/30/18 07/01/18 07/02/18 23:59 23:59 23:59 Weight 145.603 kg 147.4 kg Lungs are clear to percussion and auscultation. Heart is in a sinus bradycardia with a heart rate of 60-65. All incisions are healing well without signs of infection and the sternum is stable. Chest tube drainage is minimal and there is no air leak. - Labs 07/02/18 03:40 07/02/18 03:40 Lab Results, Last 24 hours 07/01/18 07/01/18 07/01/18 12:30 12:30 12:30 WBC 17.8 H D Hgb 11.4 L Hct 33.4 L Plt Count 180 INR 1.2 APTT 34.8 Sodium 139 Potassium 3.9 Chloride 106 Carbon Dioxide 25 BUN 14 Creatinine 1.07 Glucose 163 H Calcium 8.5 L Magnesium 2.8 H 07/01/18 07/02/18 07/02/18 20:11 03:40 03:40 WBC 19.0 H Hgb 10.7 L Hct 32.0 L Plt Count 192 INR 1.2 APTT 31.2 Sodium Potassium 4.3 Chloride Carbon Dioxide BUN Creatinine Glucose Calcium Magnesium 07/02/18 03:40 WBC Hgb Hct Plt Count INR APTT Sodium 138 Potassium 4.2 Chloride 106 Carbon Dioxide 24 BUN 21 Creatinine 1.45 H Glucose 105 Calcium 8.5 L Magnesium 2.4 - VTE Documentation of Mechanical Device: Graduated compression elastic hosiery Consult Discharge Plan - Plan Referrals: NONE,PCP [Primary Care Provider] -
[2018-07-02] MEDS: Aspirin Enteric Coated 325 MG Tablet PO SCH (07:33)
[2018-07-02] MEDS: Chlorhexidine Rinse 15 ML MOUTHWASH MM SCH ×2 (07:34→20:47)
[2018-07-02] MEDS: niCARdipine 40 MG/200 ML MLS IVC SCH ×3 (11:53→20:47)
[2018-07-02] MEDS ORDERED: *HR* Dextrose 50 % in Water (Syg) 50 ML SYRINGE IVP PRN (12:02)
[2018-07-02] MEDS ORDERED: D5% in Water 1,000 ML IVC PRN (12:02)
[2018-07-02] MEDS ORDERED: Dextrose Gel 15 GM/37.5 ML TUBE PO PRN ×2 (12:02)
[2018-07-02] MEDS: Insulin LISPRO 300 UNITS/3 ML VIAL SQ SCH ×2 (12:54→16:46)
[2018-07-02] MEDS: Norepinephrine 4 MG in D5% in Water 250 ML IVC SCH (12:54)
[2018-07-02] MEDS: amLODIPine 5 MG TABLET PO SCH (16:01)
[2018-07-02] MEDS ORDERED: Insulin LISPRO 300 UNITS/3 ML VIAL SQ SCH (21:00)
[2018-07-03 03:34] LABS: Basophils % 0.2 %; Eosinophils % 0.1 %; Hematocrit 30.7 % (37.5-50.1); Hemoglobin 10.1 g/dL (12.9-16.9); Immature Granulocytes % 0.8 % (0-4); Lymphocytes # 1.4 K/mcL (0.6-4.6); Lymphocytes % 10.3 %; Mean Corpuscular HGB Conc 32.9 g/dL (31.6-35.5); Mean Corpuscular Hemoglobin 30.2 pg (28.0-33.3); Mean Corpuscular Volume 91.9 fL (83.0-100.0); Mean Platelet Volume 10.2 fL (9.4-12.4); Monocytes # 1.5 K/mcL (0.0-1.3); Monocytes % 10.8 %; Neutrophils # 10.9 K/mcL (1.6-8.9); Platelet Count 154 K/mcL (140-400); Red Blood Count 3.34 M/mcL (4.19-5.50); Red Cell Distribution Width 13.7 % (11.5-14.5); Segmented Neutrophils % 77.8 %
[2018-07-03 03:40] LABS: BUN/Creatinine Ratio 22 (6-26); Blood Urea Nitrogen 25 mg/dL (8-23); Calcium 8.3 mg/dL (8.6-10.3); Carbon Dioxide 25 mEq/L (23-29); Chloride 102 mEq/L (98-107); Glucose 187 mg/dL (70-105); Osmolality,Calculated 289 (280-300); Potassium 3.8 mEq/L (3.5-5.1); Sodium 135 mEq/L (136-145); eGFR For Non-African Americans > 60 (> 60)
[2018-07-03] MEDS: Ringers Solution, Lactated 1,000 ML IVC SCH (04:14)
[2018-07-03] MEDS: Nitroglycerin 25 MG/250 ML INFUS..BTL IVC SCH ×3 (07:16→08:54)
[2018-07-03] MEDS: niCARdipine 40 MG/200 ML MLS IVC SCH (07:17)
--- NOTE | 2018-07-03 08:50 | Cardiothoracic Progress Note ---
Date of Encounter: 07/03/18 Time of Encounter: 08:48 - Assessment and plan (1) CAD (coronary artery disease) Current Visit: No Status: Chronic We will discontinue the Beach catheter and IV fluids. Chest tubes were removed. We will transfer the patient to the floor. - Subjective Interval history: The patient is tolerating his diet and has mild postoperative pain. Vital Signs, Last 4 Hours Temp Pulse Resp BP Pulse Ox 07/03/18 08:20 24 96 07/03/18 07:54 99.6 F 07/03/18 07:00 79 16 148/80 96 07/03/18 05:58 80 21 151/97 07/03/18 04:53 79 26 147/59 Oxgyen Flow Rate Oxygen Flow Rate (LPM) 4 Clinical Data, last 8 Hours Output, Chest Tube Drainage 20 Amount [Mediastinal #1] Output, Chest Tube Drainage 0 Amount [Mediastinal #2] Output, Chest Tube Drainage 20 Amount [Mediastinal #3] Weight 07/01/18 07/02/18 07/03/18 23:59 23:59 23:59 Weight 145.603 kg 147.4 kg Lungs are clear to percussion and auscultation. Heart is in a normal sinus rhythm with a rate of 80. All incisions are healing well without signs of infection and the sternum is stable. Chest tube drainage is minimal and there is no air leak. I removed the chest tubes, but left the pacing wires. - Labs 07/03/18 03:07 07/03/18 00:01 Lab Results, Last 24 hours 07/03/18 07/03/18 00:01 03:07 WBC 14.0 H Hgb 10.1 L Hct 30.7 L Plt Count 154 Sodium 135 L Potassium 3.8 Chloride 102 Carbon Dioxide 25 BUN 25 H Creatinine 1.16 Glucose 187 H Calcium 8.3 L - VTE Documentation of Mechanical Device: Graduated compression elastic hosiery Consult Discharge Plan - Plan Referrals: NONE,PCP [Primary Care Provider] -
[2018-07-03] MEDS: Aspirin Enteric Coated 325 MG Tablet PO SCH (08:52)
[2018-07-03] MEDS ORDERED: Furosemide 20 MG/2 ML VIAL IVP ONE (08:52)
[2018-07-03] MEDS: amLODIPine 5 MG TABLET PO SCH (08:52)
[2018-07-03] MEDS: Chlorhexidine Rinse 15 ML MOUTHWASH MM SCH ×2 (08:52→20:22)
[2018-07-03] MEDS: Insulin LISPRO 300 UNITS/3 ML VIAL SQ SCH ×3 (08:53→16:46)
[2018-07-03] MEDS: *HR* OxyCODONE/APAP 5/325 TABLET PO PRN ×3 (09:21→20:23)
[2018-07-03] MEDS ORDERED: Acetaminophen 325 MG TABLET PO PRN (09:31)
[2018-07-03] MEDS ORDERED: *HR* Promethazine 25 MG/ML VIAL IVP PRN (09:31)
[2018-07-03] MEDS ORDERED: Ondansetron 4 MG/2 ML VIAL IVP PRN (09:31)
[2018-07-03] MEDS ORDERED: *HR* Dextrose 50 % in Water (Syg) 50 ML SYRINGE IVP PRN (09:31)
[2018-07-03] MEDS ORDERED: Loratadine 10 MG TABLET PO PRN (09:31)
[2018-07-03] MEDS ORDERED: Dextrose Gel 15 GM/37.5 ML TUBE PO PRN ×2 (09:31)
[2018-07-03] MEDS ORDERED: Naloxone 0.4 MG/ML INJ IVP PRN (09:31)
[2018-07-03] MEDS ORDERED: Insulin Regular, Human 100 UNIT/ML IV PRN (09:31)
[2018-07-03] MEDS ORDERED: D5% in Water 1,000 ML IVC PRN (09:31)
[2018-07-03] MEDS ORDERED: Fluticasone Propionate Nasal 50 MCG/SPRAY BOTTLE NS PRN (09:31)
[2018-07-03] MEDS: *HR* Heparin 5,000 UNIT/ML VIAL SQ SCH (16:47)
[2018-07-03] MEDS: Budesonide/Formoterol 160/4.5 1 PUFF INH IH SCH (20:35)
[2018-07-04] MEDS: *HR* OxyCODONE/APAP 5/325 TABLET PO PRN ×3 (00:51→14:12)
[2018-07-04 01:52] LABS: Basophils % 0.2 %; Eosinophils # 0.1 K/mcL (0.0-0.6); Eosinophils % 0.7 %; Hematocrit 27.9 % (37.5-50.1); Hemoglobin 9.4 g/dL (12.9-16.9); Immature Granulocytes % 1.1 % (0-4); Lymphocytes # 1.6 K/mcL (0.6-4.6); Lymphocytes % 13.3 %; Mean Corpuscular HGB Conc 33.7 g/dL (31.6-35.5); Mean Corpuscular Hemoglobin 30.3 pg (28.0-33.3); Mean Platelet Volume 10.2 fL (9.4-12.4); Monocytes # 1.3 K/mcL (0.0-1.3); Monocytes % 10.3 %; Neutrophils # 9.1 K/mcL (1.6-8.9); Platelet Count 155 K/mcL (140-400); Red Cell Distribution Width 13.7 % (11.5-14.5); Segmented Neutrophils % 74.4 %
[2018-07-04 02:13] LABS: BUN/Creatinine Ratio 24 (6-26); Blood Urea Nitrogen 25 mg/dL (8-23); Calcium 8.4 mg/dL (8.6-10.3); Carbon Dioxide 23 mEq/L (23-29); Chloride 103 mEq/L (98-107); Glucose 154 mg/dL (70-105); Osmolality,Calculated 291 (280-300); Potassium 3.6 mEq/L (3.5-5.1); Sodium 137 mEq/L (136-145); eGFR For Non-African Americans > 60 (> 60)
[2018-07-04] MEDS: *HR* Heparin 5,000 UNIT/ML VIAL SQ SCH ×2 (06:09→17:06)
[2018-07-04] MEDS: Budesonide/Formoterol 160/4.5 1 PUFF INH IH SCH ×2 (07:46→20:28)
[2018-07-04] MEDS: Chlorhexidine Rinse 15 ML MOUTHWASH MM SCH ×2 (08:21→20:40)
[2018-07-04] MEDS: amLODIPine 5 MG TABLET PO SCH (08:22)
[2018-07-04] MEDS: Aspirin Enteric Coated 325 MG Tablet PO SCH (08:22)
[2018-07-04] MEDS: Insulin LISPRO 300 UNITS/3 ML VIAL SQ SCH ×5 (08:27→20:42)
--- NOTE | 2018-07-04 08:56 | Cardiothoracic Progress Note ---
Date of Encounter: 07/04/18 Time of Encounter: 08:54 - Assessment and plan (1) CAD (coronary artery disease) Current Visit: No Status: Chronic The patient is recovering well from his CABG3. He is ambulating the hallways without difficulty. He denies any substernal chest pain or shortness of breath. The assessment and plan as outlined above was discussed with the patient and/or family members who expressed understanding and agreement. All questions were answered. Qualifiers: Coronary Disease-Associated Artery/Lesion type: [place] artery [place] vs. transplanted heart: [place] heart Associated angina: with unstable angina Qualified Code(s): I25.110 - Atherosclerotic heart disease of [place] coronary artery with unstable angina pectoris - Subjective Procedure(s) Performed: POD#3 S/P CABG3 Interval history: The patient remained hemodynamic stable overnight. He is sitting in a chair eating breakfast. He has begun ambulating in the hallways without difficulty. He has no complaints. Vital Signs, Last 4 Hours Temp Pulse Resp BP Pulse Ox 07/04/18 08:02 98.2 F 67 22 144/83 100 07/04/18 07:50 12 98 Oxgyen Flow Rate Oxygen Flow Rate (LPM) 4 Weight 07/02/18 07/03/18 07/04/18 23:59 23:59 23:59 Weight 147.4 kg 148.3 kg - Physical Examination General: Conversant, No Apparent Distress Neck: No JVD, Normal carotid pulses Cardiac: Reg Rate and Rhythm, Normal S1 and S2, No Murmur Incision: No signs of infection, Dry/intact dressing Sternum: Stable Pacing Wires: Removed Lungs: Normal Breath Sounds, No Wheeze, Rales, Rhonchi Neuro: Alert and responsive, No focal deficits noted Vascular: Normal capillary refill Extremities: No Clubbing, No Cyanosis, No Edema - Labs 07/04/18 01:26 07/04/18 01:26 Lab Results, Last 24 hours 07/04/18 07/04/18 01:26 01:26 WBC 12.2 H Hgb 9.4 L Hct 27.9 L Plt Count 155 Sodium 137 Potassium 3.6 Chloride 103 Carbon Dioxide 23 BUN 25 H Creatinine 1.03 Glucose 154 H Calcium 8.4 L - VTE Documentation of Mechanical Device: Graduated compression elastic hosiery Consult Discharge Plan - Plan Referrals: Patricia Charles, ENVELOPE PRESS OPERATOR [Advanced Practice Nurse] - (office will call patient at home with follow up appointment) Fan Mccarthy MD [Partnered Physician] - 08/01/18 1:15 pm Ronal Landon MD [Partnered Physician] - 07/15/18 9:30 am
[2018-07-05] MEDS: *HR* Heparin 5,000 UNIT/ML VIAL SQ SCH ×2 (05:10→16:41)
--- NOTE | 2018-07-05 07:36 | Cardiothoracic Progress Note ---
Date of Encounter: 07/05/18 Time of Encounter: 07:35 - Assessment and plan (1) CAD (coronary artery disease) Current Visit: No Status: Chronic I removed the patient's pacing wires. Hopefully, he can be discharged in 1-2 days. Qualifiers: Coronary Disease-Associated Artery/Lesion type: [place] artery [place] vs. transplanted heart: [place] heart Associated angina: with unstable angina Qualified Code(s): I25.110 - Atherosclerotic heart disease of [place] coronary artery with unstable angina pectoris - Subjective Interval history: The patient has no complaints. Vital Signs, Last 4 Hours Temp Pulse Resp BP Pulse Ox 07/05/18 03:49 98.8 F 71 18 169/90 94 Oxgyen Flow Rate Oxygen Flow Rate (LPM) 2 Clinical Data, last 8 Hours Output, Urine Amount 480 Output, Urine Amount 400 Output, Urine Amount 380 Weight 07/03/18 07/04/18 07/05/18 23:59 23:59 23:59 Weight 148.3 kg 150.1 kg Lungs are clear to percussion and auscultation. Heart is in a normal sinus rhythm. All incisions are healing well without signs of infection and the sternum is stable. - Labs 07/04/18 01:26 07/04/18 01:26 - VTE Documentation of Mechanical Device: Graduated compression elastic hosiery Consult Discharge Plan - Plan Referrals: Patricia Charles CNP [Advanced Practice Nurse] - (office will call patient at home with follow up appointment) Fan Mccarthy MD [Partnered Physician] - 08/01/18 1:15 pm Ronal Landon MD [Partnered Physician] - 07/15/18 9:30 am
[2018-07-05] MEDS: Budesonide/Formoterol 160/4.5 1 PUFF INH IH SCH ×2 (07:46→19:18)
[2018-07-05] MEDS: Aspirin Enteric Coated 325 MG Tablet PO SCH (07:54)
[2018-07-05] MEDS: amLODIPine 5 MG TABLET PO SCH (07:54)
[2018-07-05] MEDS: Chlorhexidine Rinse 15 ML MOUTHWASH MM SCH ×2 (07:55→20:08)
[2018-07-05] MEDS: Insulin LISPRO 300 UNITS/3 ML VIAL SQ SCH ×4 (07:57→20:07)
--- NOTE | 2018-07-05 19:18 | Electrocardiograph Report ---
[place] [id number] Test Date: 2018-07-01 Pat Name: Zheng Zuniga Department: 112 Room: 2N04 Gender: M Web Producer: : 1960 Requested By: Fan Mccarthy Order Number: [id number] Reading MD: Johan Lockett Measurements Intervals [place] Rate: 79 P: 116 MI: 207 QRS: -3 QRSD: 96 T: 56 QT: 403 QTc: 438 Interpretive Statements ELECTRONIC ATRIAL PACEMAKER INFERIOR MYOCARDIAL INFARCTION, PROBABLY OLD Electronically Signed On 07-05-2018 19:17:25 EDT by Johan Lockett
[2018-07-06] MEDS: *HR* Heparin 5,000 UNIT/ML VIAL SQ SCH (05:25)
[2018-07-06 07:48] VITALS: BP 164/97
[2018-07-06] MEDS: Chlorhexidine Rinse 15 ML MOUTHWASH MM SCH (08:00)
[2018-07-06] MEDS: amLODIPine 5 MG TABLET PO SCH (08:00)
[2018-07-06] MEDS: Aspirin Enteric Coated 325 MG Tablet PO SCH (08:00)
[2018-07-06] MEDS: Insulin LISPRO 300 UNITS/3 ML VIAL SQ SCH (08:05)
[2018-07-06] MEDS: Budesonide/Formoterol 160/4.5 1 PUFF INH IH SCH (09:12)
--- NOTE | 2018-07-06 10:21 | Discharge Summary ---
Orders not resulted at time of discharge: Pending orders 07/01/18 Red Blood Cells [BBK] Routine Date of Encounter: 07/06/18 Time of Encounter: 10:18 - Discharge Diagnosis (1) CAD (coronary artery disease) Priority: Primary Status: Chronic Qualifiers: Coronary Disease-Associated Artery/Lesion type: [place] artery [place] vs. transplanted heart: [place] heart Associated angina: with unstable angina Qualified Code(s): I25.110 - Atherosclerotic heart disease of [place] coronary artery with unstable angina pectoris - Hospital Course Hospital course: Mr. Zuniga is a 58 year old male The patient is a 58-year-old gentleman with a history of hypertension, hypercholesterolemia, diabetes and previous stent placement. Cardiac catheterization revealed severe coronary artery disease and he was referred for surgery. On 07/01/2018, who brought him to the operating room for coronary artery bypass grafting 3, utilizing the left internal mammary artery. On July 02 we left him in the ICU for pulmonary toilet. On July 03, his chest tubes were removed, his beta marilu was restarted and he was transferred to the floor. On July 05, we removed his pacing wires. The patient otherwise did well and was discharged on July 06. At that time, he was afebrile. Lungs were clear to percussion and auscultation. Heart was in a normal sinus rhythm. All incisions were healing well without signs of infection and the sternum was stable. Discharge medications are on the med rec and include narcotics for pain. I did check the [place] automated Rx reporting system. He was postoperative and was given a one-week supply. Appropriate precautions were given. He was to return to his previous and regular diabetic diet. He was to walk as much as possible, but to avoid heavy lifting for a total of 3 months after surgery. He was to avoid driving for 1 month. He was to follow up and see me in the office in 4 weeks as directed. He was to follow-up with his primary care doctor and postal mail carrier as directed. He was to call sooner for any difficulties. - Time Spent with Patient Total time spent providing and/or coordinating discharge services: - Discharge Medications Prescriptions: OxyCODONE/APAP 5/325 [Percocet 5/325 MG] 1 each PO Q4HR PRN 7 Days #20 tablet PRN Reason: Severe Pain amLODIPine [Norvasc] 10 mg PO DAILY #30 tablet Home Medications: Albuterol Sulfate [Ventolin Hfa] 2 puff IH QID PRN 10/29/15 [History] Amlodipine Besylate 10 mg PO DAILY 10/29/15 [History] Budesonide/Formoterol 160/4.5 [Symbicort 160/4.5] 2 puff IH BIDR PRN 10/29/15 [History] Sealy-3 Fatty Acids [Fish Oil] 600 mg PO DAILY 10/29/15 [History] Sertraline [Zoloft] 100 mg PO DAILY 10/29/15 [History] Nitroglycerin 0.4 mg SL Q5MIN PRN #10 tab.subl 01/20/17 [Rx] Metformin HCl 1,000 mg PO BID 06/14/18 [History] Multivitamin with Minerals [One-A-Day Maximum Formula] 1 tab PO DAILY 06/14/18 [History] Atenolol [Tenormin] 50 mg PO DAILY #30 tablet 06/15/18 [Rx] Losartan Potassium [Cozaar] 50 mg PO DAILY #30 tab 06/15/18 [Rx] Aspirin [Adult Aspirin] 81 mg PO DAILY 06/21/18 [History] Atorvastatin [Lipitor] 80 mg PO QAM 06/21/18 [History] Isosorbide MONOnitrate (24 HR) [Imdur] 60 mg PO DAILY #30 tab.er.24h 06/26/18 [Rx] Fluticasone Propionate Nasal [Flonase] 1 spr NS DAILY PRN 07/01/18 [History] Loratadine [Allergy Relief] 10 mg PO DAILY PRN 07/01/18 [History] Sertraline [Zoloft] 50 mg PO QPM 07/01/18 [History] OxyCODONE/APAP 5/325 [Percocet 5/325 MG] 1 each PO Q4HR PRN 7 Days #20 tablet 07/06/18 [Rx] amLODIPine [Norvasc] 10 mg PO DAILY #30 tablet 07/06/18 [Rx] Allergies/Adverse Reactions: Allergy/AdvReac Type Severity Reaction Status Date / Time No Known Allergies Allergy Verified 07/01/18 07:29 Date of admission: 07/01/18 11:05 Primary care physician: PCP NONE Consults: 07/01/18 07:42 Consult for Pharmacy Education [CONS] Routine Reason for Consult: open heart Call Completed: Yes 07/01/18 12:15 Consult to Cardiac Rehabilitation-Phase1 [CONS] Routine Comment: Reason for Consult: Post open heart Call Completed: Yes Consult to Paper Processing Machine Helper [CONS] Routine Reason for SW Consult: open heart 07/03/18 09:31 Consult for Pharmacy Education [CONS] Routine Reason for Consult: Post-Op Heart Call Completed: Yes Consult to Occupational Therapy [CONS] Routine Comment: Evaluate, develop and implement POC Reason for Consult: Post-Op Heart Does patient have active BEDREST order?: No Is patient medically & hemodynamically stable?: Yes Consult to Physical Therapy [CONS] Routine Comment: Evaluate, develop and implement POC Reason for Consult: Post open heart Does patient have active BEDREST order?: No Is patient medically & hemodynamically stable?: Yes Procedure(s) Performed: 07/01/2018. Coronary artery bypass grafting 3, utilizing the left internal mammary artery Discharging clinician: Fan Mccarthy Anticipated date of discharge: 07/06/18 Physical Examination Vital Signs, Last 4 Hours Temp Pulse Resp BP Pulse Ox 07/06/18 07:54 79 07/06/18 07:46 98.0 F 73 20 164/97 94 - Patient Status Disposition: Home, Self-Care Functional capacity at discharge: independent ambulation Overall status at discharge: patient is progressing back to baseline - Discharge Instructions Follow Up With: Patricia Charles CNP [Advanced Practice Nurse] - (office will call patient at home with follow up appointment) Fan Mccarthy MD [Partnered Physician] - 08/01/18 1:15 pm Ronal Landon MD [Partnered Physician] - 07/15/18 9:30 am Open Heart Registry Aspirin Cont/Prescribed at DC: Yes Beta Marilu Cont/Prescribed at DC: Yes Statin Cont/Prescribed at DC: Yes SERGEI/ARB Cont/Prescribed at DC: Yes - VTE Documentation of Mechanical Device: Graduated compression elastic hosiery
== END 2018-07-06 12:50 | disposition home or self-care (01) | DRG 236 ==
LOC: SAMDAY 06:05 → ICNU 11:05 → 2NNU 07-03 12:10
PROVIDERS: ADMIT Thoracic Surgery (Cardiothoracic Vascular Surgery); ATTEND Thoracic Surgery (Cardiothoracic Vascular Surgery)

== ENCOUNTER 2020-03-19 12:33 | Observation (INO) ==
[2020-03-19] MEDS ORDERED: Aspirin 81 MG TAB.CHEW PO ONE (12:43)
[2020-03-19 13:01] LABS: Basophils % 0.3 %; Eosinophils # 0.1 K/mcL (0.0-0.6); Eosinophils % 0.7 %; Hematocrit 43.5 % (37.5-50.1); Hemoglobin 14.8 g/dL (12.9-16.9); Immature Granulocytes % 0.5 % (0-4); Lymphocytes # 3.5 K/mcL (0.6-4.6); Lymphocytes % 34.3 %; Mean Corpuscular Hemoglobin 30.2 pg (28.0-33.3); Mean Corpuscular Volume 88.8 fL (83.0-100.0); Mean Platelet Volume 9.9 fL (9.4-12.4); Monocytes # 0.7 K/mcL (0.0-1.3); Monocytes % 7.1 %; Neutrophils # 5.8 K/mcL (1.6-8.9); Platelet Count 226 K/mcL (140-400); Red Cell Distribution Width 13.2 % (11.5-14.5); Segmented Neutrophils % 57.1 %; White Blood Count 10.1 K/mcL (4.3-11.1)
[2020-03-19] MEDS: Nitroglycerin 0.4 MG TAB.SUBL SL PRN ×5 (13:07→22:09)
[2020-03-19 13:19] LABS: Activated Partial Thrombo Time 35.3 Seconds (26.0-36.0)
[2020-03-19 13:22] LABS: Alanine Aminotransferase 30 Units/L (7-52); Albumin 4.9 g/dL (3.5-5.7); Albumin/Globulin Ratio 1.7 (1.1-2.2); Alkaline Phosphatase 88 Units/L (34-104); Aspartate Amino Transferase 24 Units/L (13-39); BUN/Creatinine Ratio 16 (6-26); Bilirubin,Direct 0.2 mg/dL (0.0-0.2); Bilirubin,Indirect 0.8 mg/dL (0.0-1.0); Blood Urea Nitrogen 18 mg/dL (8-23); Calcium 9.9 mg/dL (8.6-10.3); Carbon Dioxide 21 mEq/L (23-29); Chloride 102 mEq/L (98-107); Globulin 2.9 g/dL (2.4-3.5); Glucose 94 mg/dL (70-105); Osmolality,Calculated 290 (280-300); Potassium 3.1 mEq/L (3.5-5.1); Sodium 139 mEq/L (136-145); Total Protein 7.8 g/dL (6.4-8.9); Troponin I < 0.03 ng/mL (< 0.04); eGFR For African Americans > 60 (> 60); eGFR For Non-African Americans > 60 (> 60)
[2020-03-19 13:47] LABS: Bilirubin,Urine Negative (Negative); Blood,Urine Negative (Negative); Clarity,Urine Clear (Clear); Color,Urine Light-Yellow (Yellow); Glucose,Urine (UA) Normal (Normal); Ketones,Urine Negative (Negative); Leukocyte Esterase,Urine Negative (Negative); Nitrite,Urine Negative (Negative); PH,Urine 7.5 pH Units (5.0-8.0); Protein,Urine Negative (Neg-Trace); Urobilinogen,Urine Normal (Normal)
[2020-03-19] MEDS ORDERED: Potassium Chloride 40 MEQ, Lidocaine 1% 2 ML in D5% in Water 500 ML IVPB ONE (14:06)
[2020-03-19 16:54] LABS: Adenovirus Not Detected (Not Detect); Coronavirus 229E Not Detected (Not Detect); Coronavirus HKU1 Not Detected (Not Detect); Coronavirus NL63 Not Detected (Not Detect); Coronavirus OC43 Not Detected (Not Detect); Human Metapneumovirus Not Detected (Not Detect); Human Rhinovirus/Enterovirus Not Detected (Not Detect); Influenza A Subtype 2009 H1 Not Detected (Not Detect); Influenza B Not Detected (Not Detect); Parainfluenza Virus 1 Not Detected (Not Detect); Parainfluenza Virus 2 Not Detected (Not Detect); Parainfluenza Virus 3 Not Detected (Not Detect); Parainfluenza Virus 4 Not Detected (Not Detect); Respiratory Syncytial Virus Not Detected (Not Detect); SARS-CoV-2 Not Detected (Not Detect)
[2020-03-19 16:55] LABS: Bordetella Pertussis Not Detected (Not Detect); Chlamydophila pneumoniae Not Detected (Not Detect); Mycoplasma pneumoniae Not Detected (Not Detect)
[2020-03-19] MEDS ORDERED: *HR* Dextrose 50 % in Water (Vial) 50 ML VIAL IVP PRN (17:15)
[2020-03-19] MEDS ORDERED: Dextrose Gel 15 GM/37.5 ML TUBE PO PRN ×2 (17:15)
[2020-03-19] MEDS ORDERED: D5% in Water 1,000 ML IVC PRN (17:15)
[2020-03-19] MEDS: *HR* Heparin 5,000 UNIT/ML VIAL SQ SCH (18:49)
[2020-03-19] MEDS: Insulin LISPRO 300 UNITS/3 ML VIAL SQ SCH (20:50)
[2020-03-19] MEDS: Budesonide/Formoterol 160/4.5 1 PUFF INH IH SCH (20:52)
[2020-03-19] MEDS: Morphine Sulfate 2 MG/ML SYRINGE IVP PRN (22:16)
[2020-03-20] MEDS: Morphine Sulfate 2 MG/ML SYRINGE IVP PRN ×3 (00:09→16:17)
[2020-03-20 00:58] LABS: Basophils % 0.3 %; Eosinophils # 0.1 K/mcL (0.0-0.6); Hematocrit 39.1 % (37.5-50.1); Immature Granulocytes % 0.3 % (0-4); Lymphocytes # 2.2 K/mcL (0.6-4.6); Lymphocytes % 30.3 %; Mean Corpuscular Hemoglobin 30.1 pg (28.0-33.3); Mean Corpuscular Volume 91.1 fL (83.0-100.0); Mean Platelet Volume 10.1 fL (9.4-12.4); Monocytes # 0.5 K/mcL (0.0-1.3); Monocytes % 6.9 %; Neutrophils # 4.4 K/mcL (1.6-8.9); Platelet Count 170 K/mcL (140-400); Red Blood Count 4.29 M/mcL (4.19-5.50); Red Cell Distribution Width 13.2 % (11.5-14.5); Segmented Neutrophils % 61.2 %; White Blood Count 7.1 K/mcL (4.3-11.1)
[2020-03-20 00:59] LABS: Hemoglobin 12.9 g/dL (12.9-16.9)
[2020-03-20 01:04] LABS: INR 1.1; Prothrombin Time 12.6 Seconds (9.4-12.1)
[2020-03-20 01:34] LABS: Alanine Aminotransferase 27 Units/L (7-52); Albumin 4.1 g/dL (3.5-5.7); Albumin/Globulin Ratio 1.8 (1.1-2.2); Alkaline Phosphatase 74 Units/L (34-104); Aspartate Amino Transferase 24 Units/L (13-39); BUN/Creatinine Ratio 17 (6-26); Bilirubin,Total 0.6 mg/dL (0.3-1.0); Blood Urea Nitrogen 16 mg/dL (8-23); Calcium 8.6 mg/dL (8.6-10.3); Carbon Dioxide 24 mEq/L (23-29); Chloride 104 mEq/L (98-107); Globulin 2.3 g/dL (2.4-3.5); Glucose 126 mg/dL (70-105); Magnesium 1.9 mg/dL (1.6-2.6); Osmolality,Calculated 291 (280-300); Potassium 3.1 mEq/L (3.5-5.1); Sodium 139 mEq/L (136-145); Total Protein 6.4 g/dL (6.4-8.9); eGFR For African Americans > 60 (> 60); eGFR For Non-African Americans > 60 (> 60)
[2020-03-20] MEDS: *HR* Heparin 5,000 UNIT/ML VIAL SQ SCH ×2 (06:12→17:51)
[2020-03-20] MEDS: Insulin LISPRO 300 UNITS/3 ML VIAL SQ SCH ×4 (07:22→20:24)
[2020-03-20] MEDS ORDERED: Potassium Chloride 40 MEQ, Lidocaine 1% 2 ML in 0.9 % Sodium Chloride 500 ML IVPB ONE (08:07)
[2020-03-20] MEDS ORDERED: Perflutren Lipid Microsphere 1.3 ML in 0.9 % Sodium Chloride 8.7 ML IVP PRN (10:27)
[2020-03-20] MEDS: Budesonide/Formoterol 160/4.5 1 PUFF INH IH SCH ×2 (10:41→20:44)
[2020-03-20] MEDS ORDERED: Regadenoson 0.4 MG/5 ML SYRINGE IVP ONE (11:02)
[2020-03-20] MEDS: Metoprolol XL (24 HR) Succ 50 MG TAB.ER.24H PO SCH (13:01)
[2020-03-20] MEDS: Aspirin 81 MG TAB.CHEW PO SCH (13:01)
[2020-03-20] MEDS: amLODIPine 5 MG TABLET PO SCH (13:01)
[2020-03-20] MEDS: hydroCHLOROthiazide 25 MG TABLET PO SCH (13:01)
[2020-03-20] MEDS: Isosorbide MONOnitrate (24 HR) 30 MG TAB.ER.24H PO SCH (14:50)
[2020-03-21] MEDS: *HR* Heparin 5,000 UNIT/ML VIAL SQ SCH (05:09)
[2020-03-21] MEDS: Insulin LISPRO 300 UNITS/3 ML VIAL SQ SCH (07:58)
[2020-03-21 08:29] LABS: Hematocrit 37.7 % (37.5-50.1); Hemoglobin 12.3 g/dL (12.9-16.9); Mean Corpuscular HGB Conc 32.6 g/dL (31.6-35.5); Mean Corpuscular Hemoglobin 29.7 pg (28.0-33.3); Mean Corpuscular Volume 91.1 fL (83.0-100.0); Mean Platelet Volume 9.9 fL (9.4-12.4); Platelet Count 161 K/mcL (140-400); Red Blood Count 4.14 M/mcL (4.19-5.50); Red Cell Distribution Width 13.2 % (11.5-14.5); White Blood Count 6.8 K/mcL (4.3-11.1)
[2020-03-21 08:39] VITALS: BP 124/73
[2020-03-21 09:00] LABS: BUN/Creatinine Ratio 15 (6-26); Blood Urea Nitrogen 15 mg/dL (8-23); Calcium 8.5 mg/dL (8.6-10.3); Carbon Dioxide 27 mEq/L (23-29); Chloride 106 mEq/L (98-107); Glucose 125 mg/dL (70-105); Osmolality,Calculated 290 (280-300); Potassium 3.9 mEq/L (3.5-5.1); Sodium 139 mEq/L (136-145); eGFR For African Americans > 60 (> 60); eGFR For Non-African Americans > 60 (> 60)
[2020-03-21] MEDS: amLODIPine 5 MG TABLET PO SCH (09:03)
[2020-03-21] MEDS: Isosorbide MONOnitrate (24 HR) 30 MG TAB.ER.24H PO SCH (09:04)
[2020-03-21] MEDS: Metoprolol XL (24 HR) Succ 50 MG TAB.ER.24H PO SCH (09:04)
[2020-03-21] MEDS: Aspirin 81 MG TAB.CHEW PO SCH (09:04)
[2020-03-21] MEDS: hydroCHLOROthiazide 25 MG TABLET PO SCH (09:04)
[2020-03-21] MEDS: Budesonide/Formoterol 160/4.5 1 PUFF INH IH SCH (10:05)
== END 2020-03-21 11:17 | disposition home or self-care (01) ==
LOC: EMEROOARM 12:33 → 3BNU 12:33 → SUATTDRO 14:39 → 3BNU 17:30
PROVIDERS: ADMIT Family Medicine; ATTEND Family Medicine

== ENCOUNTER 2022-02-01 11:29 | Inpatient (IN) ==
[2022-02-01] MEDS ORDERED: Ipratropium/Albuterol Neb 3 ML IH ONE (12:01)
[2022-02-01] MEDS ORDERED: Isovue-370 500 ML BOTTLE IVP ONE (12:01)
[2022-02-01 12:26] LABS: Basophils # 0.1 K/mcL (0.0-0.2); Basophils % 0.5 %; Eosinophils # 0.1 K/mcL (0.0-0.6); Eosinophils % 0.7 %; Hematocrit 33.4 % (37.5-50.1); Hemoglobin 10.7 g/dL (12.9-16.9); Immature Granulocytes % 1.5 % (0-4); Lymphocytes # 2.1 K/mcL (0.6-4.6); Lymphocytes % 16.9 %; Mean Corpuscular Hemoglobin 30.7 pg (28.0-33.3); Mean Corpuscular Volume 95.7 fL (83.0-100.0); Mean Platelet Volume 9.5 fL (9.4-12.4); Monocytes # 0.8 K/mcL (0.0-1.3); Monocytes % 6.1 %; Neutrophils # 9.3 K/mcL (1.6-8.9); Nucleated Red Blood Cells 0.2 /100 WBC (0); Platelet Count 384 K/mcL (140-400); Red Blood Count 3.49 M/mcL (4.19-5.50); Red Cell Distribution Width 14.3 % (11.5-14.5); Segmented Neutrophils % 74.3 %; White Blood Count 12.6 K/mcL (4.3-11.1)
[2022-02-01 12:33] LABS: INR 1.2
[2022-02-01 12:36] LABS: Activated Partial Thrombo Time 33.3 Seconds (26.0-36.0)
[2022-02-01 12:47] LABS: BUN/Creatinine Ratio 20 (6-26); Blood Urea Nitrogen 32 mg/dL (8-23); Calcium 10.3 mg/dL (8.6-10.3); Carbon Dioxide 21 mEq/L (23-29); Chloride 104 mEq/L (98-107); Glucose 159 mg/dL (70-105); Osmolality,Calculated 300 (280-300); Potassium 4.5 mEq/L (3.5-5.1); Sodium 140 mEq/L (136-145); eGFR For African Americans 53 (> 60); eGFR For Non-African Americans 44 (> 60)
[2022-02-01 12:48] LABS: Troponin I < 0.03 ng/mL (< 0.04)
[2022-02-01 13:08] LABS: Influenza A PCR Negative (Negative); Influenza B PCR Negative (Negative); Resp. Syncytial Virus PCR Negative (Negative)
[2022-02-01 13:09] LABS: SARS-CoV-2 by PCR (In House) Negative (Negative)
[2022-02-01] MEDS ORDERED: *HR* Heparin 5,000 UNIT/ML VIAL IVP ONE (13:59)
[2022-02-01] MEDS ORDERED: *HR* Heparin 5,000 UNIT/ML VIAL IVP PRN ×2 (13:59)
[2022-02-01] MEDS ORDERED: Melatonin 3 MG TABLET PO PRN (14:30)
[2022-02-01] MEDS ORDERED: Acetaminophen 325 MG TABLET PO PRN (14:30)
[2022-02-01] MEDS ORDERED: Ondansetron ODT 4 MG TAB.RAPDIS SL PRN (14:30)
[2022-02-01] MEDS ORDERED: Naloxone 0.4 MG/ML INJ IVP PRN (14:30)
[2022-02-01] MEDS ORDERED: Perflutren Lipid Microsphere 1.3 ML in 0.9 % Sodium Chloride 8.7 ML IVP PRN (14:38)
[2022-02-01] MEDS: Heparin 25,000UNIT/250ML 1/2NS 25,000 UNIT/250 ML IV.SOLN IVC SCH (15:09)
[2022-02-01] MEDS ORDERED: Nitroglycerin 0.4 MG TAB.SUBL SL PRN (17:00)
[2022-02-01] MEDS ORDERED: Dextrose Gel 15 GM/37.5 ML TUBE PO PRN ×2 (17:19)
[2022-02-01] MEDS ORDERED: *HR* Dextrose 50 % in Water (Syg) 50 ML SYRINGE IVP PRN (17:19)
[2022-02-01] MEDS ORDERED: D5% in Water 1,000 ML IVC PRN (17:19)
[2022-02-01] MEDS: Insulin LISPRO 300 UNITS/3 ML VIAL SUBQ SCH ×2 (18:44→20:47)
[2022-02-01] MEDS: Ranolazine 500 MG TAB.ER.12H PO SCH (20:52)
[2022-02-02 01:03] LABS: Immature Reticulocyte % 30.7 % (11.0-38.0); Retculocyte # 0.12 M/mcL (0.05-0.10); Reticulocyte % 3.6 % (1.6-2.8)
[2022-02-02 01:04] LABS: Basophils # 0.1 K/mcL (0.0-0.2); Basophils % 0.6 %; Eosinophils # 0.2 K/mcL (0.0-0.6); Eosinophils % 1.3 %; Hematocrit 32.3 % (37.5-50.1); Hemoglobin 10.2 g/dL (12.9-16.9); Immature Granulocytes % 1.7 % (0-4); Lymphocytes # 2.8 K/mcL (0.6-4.6); Lymphocytes % 24.6 %; Mean Corpuscular HGB Conc 31.6 g/dL (31.6-35.5); Mean Corpuscular Hemoglobin 30.4 pg (28.0-33.3); Mean Corpuscular Volume 96.4 fL (83.0-100.0); Mean Platelet Volume 9.5 fL (9.4-12.4); Monocytes # 0.8 K/mcL (0.0-1.3); Monocytes % 7.3 %; Neutrophils # 7.2 K/mcL (1.6-8.9); Platelet Count 328 K/mcL (140-400); Red Blood Count 3.35 M/mcL (4.19-5.50); Red Cell Distribution Width 14.4 % (11.5-14.5); Segmented Neutrophils % 64.5 %; White Blood Count 11.2 K/mcL (4.3-11.1)
[2022-02-02 01:21] LABS: Calcium 9.9 mg/dL (8.6-10.3); Magnesium 2.2 mg/dL (1.6-2.6); Potassium 4.6 mEq/L (3.5-5.1)
[2022-02-02 01:25] LABS: % Iron Saturation 12 % (20-55); Iron 50 mcg/dL (65-175); Transferrin 299 mg/dL (203-362)
[2022-02-02 01:41] LABS: Ferritin 66 ng/mL (20-250)
[2022-02-02] MEDS: *HR* HYDROcodone/Acet 5/325 mg TABLET PO PRN ×2 (03:10→19:54)
[2022-02-02] MEDS: Heparin 25,000UNIT/250ML 1/2NS 25,000 UNIT/250 ML IV.SOLN IVC SCH ×4 (03:12→17:18)
[2022-02-02] MEDS: Budesonide/Formoterol 160/4.5 1 PUFF INH IH SCH (07:29)
[2022-02-02] MEDS: Insulin LISPRO 300 UNITS/3 ML VIAL SUBQ SCH ×4 (08:51→22:39)
[2022-02-02] MEDS: Ranolazine 500 MG TAB.ER.12H PO SCH ×2 (08:58→19:54)
[2022-02-02] MEDS: Metoprolol XL (24 HR) Succ 50 MG TAB.ER.24H PO SCH (08:58)
[2022-02-02] MEDS: Spironolactone 25 MG TABLET PO SCH (08:58)
[2022-02-02] MEDS: amLODIPine 5 MG TABLET PO SCH (08:58)
[2022-02-02] MEDS: Isosorbide MONOnitrate (24 HR) 30 MG TAB.ER.24H PO SCH (08:59)
[2022-02-02] MEDS: *HR* Rivaroxaban 15 MG TABLET PO SCH (19:54)
[2022-02-03 05:43] LABS: Hematocrit 30.6 % (37.5-50.1); Hemoglobin 9.8 g/dL (12.9-16.9); Mean Corpuscular Hemoglobin 30.7 pg (28.0-33.3); Mean Corpuscular Volume 95.9 fL (83.0-100.0); Mean Platelet Volume 9.4 fL (9.4-12.4); Platelet Count 323 K/mcL (140-400); Red Blood Count 3.19 M/mcL (4.19-5.50); Red Cell Distribution Width 14.2 % (11.5-14.5); White Blood Count 8.9 K/mcL (4.3-11.1)
[2022-02-03 05:55] LABS: Calcium 9.2 mg/dL (8.6-10.3); Potassium 4.2 mEq/L (3.5-5.1)
[2022-02-03 07:08] VITALS: TEMP 98
[2022-02-03] MEDS: Metoprolol XL (24 HR) Succ 50 MG TAB.ER.24H PO SCH (08:42)
[2022-02-03] MEDS: Insulin LISPRO 300 UNITS/3 ML VIAL SUBQ SCH ×3 (08:42→16:39)
[2022-02-03] MEDS: Ranolazine 500 MG TAB.ER.12H PO SCH (08:43)
[2022-02-03] MEDS: *HR* Rivaroxaban 15 MG TABLET PO SCH (08:43)
[2022-02-03] MEDS: amLODIPine 5 MG TABLET PO SCH (08:43)
[2022-02-03] MEDS: Isosorbide MONOnitrate (24 HR) 30 MG TAB.ER.24H PO SCH (08:43)
[2022-02-03] MEDS: Spironolactone 25 MG TABLET PO SCH (08:43)
[2022-02-03] MEDS: Budesonide/Formoterol 160/4.5 1 PUFF INH IH SCH (09:56)
[2022-02-03 12:05] VITALS: BP 123/75; PULSE 83; O2SAT 96
== END 2022-02-03 17:40 | disposition home or self-care (01) | DRG 300 ==
LOC: 2NENU 11:29 → 2ANU 11:29 → EMEROOARM 11:29 → OBSVTOIN 14:44 → 2ANU 15:42
PROVIDERS: ADMIT Internal Medicine; ATTEND Internal Medicine

== ENCOUNTER 2022-05-13 11:19 | Inpatient (IN) ==
[2022-05-13 12:33] LABS: Basophils % 0.4 %; Eosinophils % 0.6 %; Hematocrit 37.5 % (37.5-50.1); Hemoglobin 12.3 g/dL (12.9-16.9); Immature Granulocytes % 0.9 % (0-4); Lymphocytes # 1.9 K/mcL (0.6-4.6); Lymphocytes % 27.6 %; Mean Corpuscular HGB Conc 32.8 g/dL (31.6-35.5); Mean Corpuscular Hemoglobin 29.9 pg (28.0-33.3); Mean Platelet Volume 10.3 fL (9.4-12.4); Monocytes # 0.5 K/mcL (0.0-1.3); Monocytes % 6.9 %; Neutrophils # 4.4 K/mcL (1.6-8.9); Platelet Count 236 K/mcL (140-400); Red Blood Count 4.12 M/mcL (4.19-5.50); Red Cell Distribution Width 13.9 % (11.5-14.5); Segmented Neutrophils % 63.6 %; White Blood Count 6.9 K/mcL (4.3-11.1)
[2022-05-13 12:43] LABS: INR 2.6; Prothrombin Time 28.3 Seconds (9.4-12.1)
[2022-05-13 12:46] LABS: Activated Partial Thrombo Time 48.6 Seconds (26.0-36.0)
[2022-05-13 12:50] LABS: BUN/Creatinine Ratio 18 (6-26); Blood Urea Nitrogen 27 mg/dL (8-23); Calcium 9.3 mg/dL (8.6-10.3); Carbon Dioxide 22 mEq/L (23-29); Chloride 102 mEq/L (98-107); Glucose 136 mg/dL (70-105); Osmolality,Calculated 289 (280-300); Potassium 4.6 mEq/L (3.5-5.1); Sodium 136 mEq/L (136-145); Troponin I < 0.03 ng/mL (< 0.04)
[2022-05-13] MEDS ORDERED: Iopamidol - 370 500 ML MLS IVP ONE (14:40)
[2022-05-13] MEDS ORDERED: Ondansetron 4 MG/2 ML VIAL IVP PRN (17:04)
[2022-05-13] MEDS ORDERED: Naloxone 0.4 MG/ML INJ IVP PRN (17:04)
[2022-05-13] MEDS ORDERED: Aspirin 325 MG TABLET PO ONE (17:06)
[2022-05-13] MEDS ORDERED: *HR* Dextrose 50 % in Water (Syg) 50 ML SYRINGE IVP PRN (17:14)
[2022-05-13] MEDS ORDERED: D5% in Water 1,000 ML IVC PRN (17:14)
[2022-05-13] MEDS ORDERED: Dextrose Gel 15 GM/37.5 ML TUBE PO PRN ×2 (17:14)
[2022-05-13] MEDS ORDERED: *HR* HYDROcodone/Acet 5/325 mg TABLET PO PRN (17:32)
[2022-05-13] MEDS: Ranolazine 500 MG TAB.ER.12H PO SCH (20:27)
[2022-05-14 01:46] LABS: Basophils % 0.5 %; Eosinophils # 0.1 K/mcL (0.0-0.6); Hemoglobin 11.4 g/dL (12.9-16.9); Immature Granulocytes % 0.8 % (0-4); Lymphocytes # 2.6 K/mcL (0.6-4.6); Lymphocytes % 31.7 %; Mean Corpuscular HGB Conc 32.6 g/dL (31.6-35.5); Mean Corpuscular Hemoglobin 29.8 pg (28.0-33.3); Mean Corpuscular Volume 91.4 fL (83.0-100.0); Mean Platelet Volume 10.2 fL (9.4-12.4); Monocytes # 0.6 K/mcL (0.0-1.3); Monocytes % 7.1 %; Neutrophils # 4.9 K/mcL (1.6-8.9); Platelet Count 215 K/mcL (140-400); Red Blood Count 3.83 M/mcL (4.19-5.50); Red Cell Distribution Width 14.1 % (11.5-14.5); Segmented Neutrophils % 58.9 %; White Blood Count 8.3 K/mcL (4.3-11.1)
[2022-05-14 02:14] LABS: BUN/Creatinine Ratio 18 (6-26); Blood Urea Nitrogen 27 mg/dL (8-23); Calcium 8.9 mg/dL (8.6-10.3); Carbon Dioxide 23 mEq/L (23-29); Chloride 103 mEq/L (98-107); Glucose 186 mg/dL (70-105); Magnesium 1.9 mg/dL (1.6-2.6); Osmolality,Calculated 290 (280-300); Potassium 4.1 mEq/L (3.5-5.1); Sodium 135 mEq/L (136-145); Troponin I < 0.03 ng/mL (< 0.04)
[2022-05-14] MEDS: Insulin LISPRO 300 UNITS/3 ML VIAL SUBQ SCH ×5 (03:32→20:56)
[2022-05-14] MEDS ORDERED: Regadenoson 0.4 MG/5 ML SYRINGE IVP ONE (07:09)
[2022-05-14] MEDS ORDERED: *HR* Rivaroxaban 10 MG TABLET PO SCH (09:00)
[2022-05-14] MEDS: Aspirin 81 MG TAB.CHEW PO SCH (09:39)
[2022-05-14] MEDS: Ranolazine 500 MG TAB.ER.12H PO SCH ×2 (09:39→21:01)
[2022-05-15 04:26] LABS: Basophils # 0.1 K/mcL (0.0-0.2); Basophils % 0.6 %; Eosinophils # 0.1 K/mcL (0.0-0.6); Hematocrit 34.8 % (37.5-50.1); Hemoglobin 11.5 g/dL (12.9-16.9); Immature Granulocytes % 0.9 % (0-4); Lymphocytes % 25.6 %; Mean Corpuscular Hemoglobin 30.7 pg (28.0-33.3); Mean Corpuscular Volume 92.8 fL (83.0-100.0); Mean Platelet Volume 9.9 fL (9.4-12.4); Monocytes # 0.8 K/mcL (0.0-1.3); Monocytes % 9.6 %; Platelet Count 196 K/mcL (140-400); Red Blood Count 3.75 M/mcL (4.19-5.50); Red Cell Distribution Width 14.2 % (11.5-14.5); Segmented Neutrophils % 62.3 %
[2022-05-15 04:44] LABS: Calcium 9.2 mg/dL (8.6-10.3); Potassium 4.4 mEq/L (3.5-5.1)
[2022-05-15] MEDS: Insulin LISPRO 300 UNITS/3 ML VIAL SUBQ SCH ×4 (07:12→20:33)
[2022-05-15] MEDS: Ranolazine 500 MG TAB.ER.12H PO SCH ×2 (07:20→20:47)
[2022-05-15] MEDS: Aspirin 81 MG TAB.CHEW PO SCH (07:20)
[2022-05-15] MEDS: Metoprolol XL (24 HR) Succ 50 MG TAB.ER.24H PO SCH (07:48)
[2022-05-15] MEDS: Loratadine 10 MG TABLET PO SCH (08:45)
[2022-05-15] MEDS: Isosorbide MONOnitrate (24 HR) 30 MG TAB.ER.24H PO SCH (08:45)
[2022-05-15] MEDS: 0.9 % Sodium Chloride 1,000 ML IVC SCH ×3 (09:22→22:40)
[2022-05-15] MEDS ORDERED: *HR* Heparin 5,000 UNIT/ML VIAL IVP PRN ×2 (09:37)
[2022-05-15] MEDS ORDERED: *HR* Heparin 5,000 UNIT/ML VIAL IVP ONE (09:37)
[2022-05-15] MEDS: Heparin 25,000UNIT/250ML 1/2NS 25,000 UNIT/250 ML IV.SOLN IVC SCH ×2 (10:26→22:39)
[2022-05-15] MEDS ORDERED: *HR* Midazolam HCl 2 MG/2 ML VIAL ONE (10:45)
[2022-05-15] MEDS ORDERED: 0.9 % Sodium Chloride 2,000 ML ONE (10:45)
[2022-05-15] MEDS ORDERED: Heparin 1,000 UNITS/500 mL 500 ML ONE (10:45)
[2022-05-15] MEDS ORDERED: *HR* FentaNYL (PF) 100 MCG/2 ML VIAL ONE (10:45)
[2022-05-15] MEDS ORDERED: *HR* Heparin 10,000 UNIT/10 ML VIAL ONE (10:45)
[2022-05-15] MEDS ORDERED: Iopamidol - 370 200 ML INFUS..BTL ONE (10:45)
[2022-05-15] MEDS ORDERED: Nitroglycerin 1,000 MCG/5 ML VIAL IV ONE (10:46)
[2022-05-15 10:54] LABS: Hematocrit 35.4 % (37.5-50.1); Hemoglobin 11.5 g/dL (12.9-16.9); Mean Corpuscular HGB Conc 32.5 g/dL (31.6-35.5); Mean Corpuscular Hemoglobin 29.7 pg (28.0-33.3); Mean Corpuscular Volume 91.5 fL (83.0-100.0); Mean Platelet Volume 10.3 fL (9.4-12.4); Platelet Count 205 K/mcL (140-400); Red Blood Count 3.87 M/mcL (4.19-5.50); Red Cell Distribution Width 14.2 % (11.5-14.5); White Blood Count 7.2 K/mcL (4.3-11.1)
[2022-05-15 11:14] LABS: Heparin anti-factor XA UFH 0.63 IU/mL (0.30-0.70); INR 1.3
[2022-05-15] MEDS ORDERED: *HR* Adenosine 6 MG/2 ML VIAL IVP ONE (12:07)
[2022-05-15] MEDS ORDERED: Adenosine 90 MG/30 ML MLS IV ONE (14:06)
[2022-05-16] MEDS: 0.9 % Sodium Chloride 1,000 ML IVC SCH ×5 (00:24→20:44)
[2022-05-16 03:50] LABS: Basophils % 0.4 %; Eosinophils # 0.1 K/mcL (0.0-0.6); Eosinophils % 0.9 %; Hematocrit 32.1 % (37.5-50.1); Hemoglobin 10.3 g/dL (12.9-16.9); Immature Granulocytes % 0.8 % (0-4); Lymphocytes # 2.1 K/mcL (0.6-4.6); Lymphocytes % 27.6 %; Mean Corpuscular HGB Conc 32.1 g/dL (31.6-35.5); Mean Corpuscular Hemoglobin 29.7 pg (28.0-33.3); Mean Corpuscular Volume 92.5 fL (83.0-100.0); Mean Platelet Volume 10.1 fL (9.4-12.4); Monocytes # 0.6 K/mcL (0.0-1.3); Monocytes % 7.9 %; Neutrophils # 4.6 K/mcL (1.6-8.9); Platelet Count 177 K/mcL (140-400); Red Blood Count 3.47 M/mcL (4.19-5.50); Red Cell Distribution Width 14.3 % (11.5-14.5); Segmented Neutrophils % 62.4 %; White Blood Count 7.4 K/mcL (4.3-11.1)
[2022-05-16 03:57] LABS: Calcium 8.7 mg/dL (8.6-10.3); Magnesium 1.9 mg/dL (1.6-2.6); Phosphorous 4.7 mg/dL (2.7-4.5); Potassium 4.1 mEq/L (3.5-5.1)
[2022-05-16] MEDS: Heparin 25,000UNIT/250ML 1/2NS 25,000 UNIT/250 ML IV.SOLN IVC SCH ×2 (06:41→22:28)
[2022-05-16] MEDS: Insulin LISPRO 300 UNITS/3 ML VIAL SUBQ SCH ×4 (07:35→20:36)
[2022-05-16] MEDS: Aspirin 81 MG TAB.CHEW PO SCH (08:06)
[2022-05-16] MEDS: Ranolazine 500 MG TAB.ER.12H PO SCH ×2 (08:06→20:35)
[2022-05-16] MEDS: Loratadine 10 MG TABLET PO SCH (08:06)
[2022-05-16] MEDS: Metoprolol XL (24 HR) Succ 50 MG TAB.ER.24H PO SCH (08:06)
[2022-05-16] MEDS: Isosorbide MONOnitrate (24 HR) 30 MG TAB.ER.24H PO SCH (08:06)
[2022-05-16] MEDS: Mometasone Furoate 100 MCG/PUFF Inhaler IH SCH ×2 (08:12→20:36)
[2022-05-17 06:16] LABS: Calcium 8.5 mg/dL (8.6-10.3); Magnesium 1.9 mg/dL (1.6-2.6); Phosphorous 4.4 mg/dL (2.7-4.5); Potassium 4.4 mEq/L (3.5-5.1)
[2022-05-17] MEDS: Mometasone Furoate 100 MCG/PUFF Inhaler IH SCH (07:30)
[2022-05-17] MEDS: 0.9 % Sodium Chloride 1,000 ML IVC SCH (07:48)
[2022-05-17] MEDS: Aspirin 81 MG TAB.CHEW PO SCH (07:52)
[2022-05-17] MEDS: Metoprolol XL (24 HR) Succ 50 MG TAB.ER.24H PO SCH (07:52)
[2022-05-17] MEDS: Isosorbide MONOnitrate (24 HR) 30 MG TAB.ER.24H PO SCH (07:52)
[2022-05-17] MEDS: Ranolazine 500 MG TAB.ER.12H PO SCH (07:52)
[2022-05-17] MEDS: Insulin LISPRO 300 UNITS/3 ML VIAL SUBQ SCH ×3 (07:52→17:51)
[2022-05-17] MEDS: Loratadine 10 MG TABLET PO SCH (07:52)
[2022-05-17 10:31] VITALS: BP 119/73; PULSE 68; TEMP 98.2; O2SAT 93
[2022-05-18] MEDS ORDERED: *HR* Rivaroxaban 10 MG TABLET PO SCH (09:00)
== END 2022-05-17 17:59 | disposition home or self-care (01) | DRG 287 ==
LOC: 3BNU 11:19 → EMEROOARM 11:19 → SUATTDRO 17:39 → 3BNU 19:40
PROVIDERS: ADMIT Student in an Organized Health Care Education/Training Program; ATTEND Internal Medicine